=== PATIENT | male | born 1955 | race Caucasian/White ===

== ENCOUNTER 2021-04-16 01:19 | Inpatient (IN) | payer BC, MEDICARE ==
[2021-04-16 02:32] LABS: ALT (SGPT) 10 U/L (8-55); AST (SGOT) 21 U/L (5-34); Albumin 3.4 g/dL (3.4-4.8); Alkaline Phosphatase 77 U/L (40-110); Anion Gap 18 mmol/L (10-20); BUN (Urea Nitrogen) 24 mg/dL (8.4-25.7); Bilirubin, Total 0.3 mg/dL (0.2-1.2); Calc. Creatinine Clearance 0 mL/min (70-130); Calcium 8.7 mg/dL (7.8-10.44); Carbon Dioxide 26 mmol/L (23-31); Chloride 101 mmol/L (98-107); Globulin 3.4 g/dL (2.4-3.5); Glucose 85 mg/dL (80-115); Magnesium 2.1 mg/dL (1.6-2.6); Potassium 3.9 mmol/L (3.5-5.1); Protein, Total 6.8 g/dL (5.8-8.1); Sodium 141 mmol/L (136-145)
[2021-04-16 02:38] LABS: #Basophils 0.1 10x3/uL (0.0-0.2); #Eosinphils 0.2 10x3/uL (0.0-0.5); #Monocytes 0.8 10x3/uL (0.0-1.1); #Neutrophils 7.9 10x3/uL (1.5-8.4); %Basophils 1.2 % (0.0-2.0); %Eosinophils 1.6 % (0.0-6.0); %Lymphocytes 8.7 % (18.0-47.0); %Monocytes 8.5 % (0.0-10.0); %Neutrophils 79.4 % (40.0-75.0); Hemoglobin 10.9 g/dL (13.5-17.5); Mean Corpuscular HGB CONC 31.7 g/dL (32.0-36.0); Mean Corpuscular Hemoglobin 31.1 pg (27.0-33.0); Mean Platelet Volume 10.5 fl (7.4-10.4); Platelet Count 206 10x3/uL (150-450); RBC Distribution Width 15.7 % (11.5-14.5); Red Blood Cell (RBC) Count 3.51 10x6/uL (4.32-5.72); White Blood Cell (WBC) Count 9.9 10x3/uL (3.5-10.5)
[2021-04-16 02:52] LABS: CKMB 2.7 ng/mL (0-6.6)
[2021-04-16] MEDS ORDERED: cefTRIAXone\\ROCEPHIN 2 GM VIAL ONE (03:24)
[2021-04-16] MEDS ORDERED: Nitroglycerin 2% Ointment 1 INCH/1 GM Packet ONE (03:24)
[2021-04-16] MEDS ORDERED: Acetaminophen 500 MG TAB ONE (03:24)
[2021-04-16] MEDS ORDERED: Azithromycin 500 MG VIAL ONE (03:25)
[2021-04-16] MEDS ORDERED: Ventolin HFA Inhaler 60 PUFF INHALER ONE (05:57)
[2021-04-16 06:45] LABS: CKMB 2.9 ng/mL (0-6.6)
[2021-04-16 09:29] LABS: Troponin I 0.358 ng/mL (< 0.028)
[2021-04-16] MEDS ORDERED: Acetaminophen 325 MG TAB PO PRN (10:16)
[2021-04-16] MEDS ORDERED: Ondansetron ODT 4 MG TAB PO PRN (10:16)
[2021-04-16] MEDS ORDERED: Ondansetron PF 4 MG/2 ML Vial IVP PRN (10:16)
[2021-04-16] MEDS ORDERED: HYDROcodone/Acetaminophen 5/325 mg Tablet PO PRN (10:16)
[2021-04-16 12:39] LABS: Troponin I 0.456 ng/mL (< 0.028)
[2021-04-16] MEDS: Heparin 5,000 UNITS/ML VIAL SC SCH ×2 (16:28→20:42)
[2021-04-16] MEDS: Sodium Bicarbonate Tab 325 MG TAB PO SCH ×2 (16:28→20:40)
[2021-04-16] MEDS: Sevelamer Carbonate 800 MG TAB PO SCH ×2 (16:28→17:09)
[2021-04-16 17:03] VITALS: BMI 19.8
[2021-04-16] MEDS: Atorvastatin Calcium 10 MG TAB PO SCH (20:40)
[2021-04-16] MEDS: Losartan Potassium 50 MG TAB PO SCH (20:40)
[2021-04-16] MEDS: hydrALAZINE 20 MG/ML VIAL SLOW IVP PRN (22:34)
[2021-04-16] MEDS ORDERED: [UNRECOGNIZED DRUG - REMARK] FS SCH (23:15)
[2021-04-16] MEDS ORDERED: Nitroglycerin 2% Ointment 1 INCH/1 GM Packet TOP SCH (23:15)
[2021-04-16] MEDS ORDERED: Nitroglycerin 0.4 MG TAB (25 Tab Bottle) SL PRN (23:24)
[2021-04-17] MEDS ORDERED: Amitriptyline HCl 10 MG TAB PO SCH (01:15)
[2021-04-17] MEDS ORDERED: ALPRAZolam 0.25 MG TAB PO SCH (01:30)
[2021-04-17 04:40] LABS: #Basophils 0.1 10x3/uL (0.0-0.2); #Eosinphils 0.3 10x3/uL (0.0-0.5); #Monocytes 0.8 10x3/uL (0.0-1.1); #Neutrophils 5.7 10x3/uL (1.5-8.4); %Basophils 1.6 % (0.0-2.0); %Eosinophils 3.2 % (0.0-6.0); %Lymphocytes 14.1 % (18.0-47.0); %Monocytes 9.6 % (0.0-10.0); %Neutrophils 70.6 % (40.0-75.0); Hemoglobin 10.5 g/dL (13.5-17.5); Mean Corpuscular Hemoglobin 30.7 pg (27.0-33.0); Mean Corpuscular Volume 95.9 fl (81.2-95.1); Mean Platelet Volume 10.7 fl (7.4-10.4); Platelet Count 205 10x3/uL (150-450); RBC Distribution Width 15.9 % (11.5-14.5); Red Blood Cell (RBC) Count 3.42 10x6/uL (4.32-5.72); White Blood Cell (WBC) Count 8.1 10x3/uL (3.5-10.5)
[2021-04-17] MEDS: hydrALAZINE 20 MG/ML VIAL SLOW IVP PRN ×2 (04:45→23:49)
[2021-04-17 05:01] LABS: ALT (SGPT) 10 U/L (8-55); AST (SGOT) 18 U/L (5-34); Albumin 3.1 g/dL (3.4-4.8); Alkaline Phosphatase 71 U/L (40-110); Anion Gap 18 mmol/L (10-20); BUN (Urea Nitrogen) 32 mg/dL (8.4-25.7); Bilirubin, Total 0.3 mg/dL (0.2-1.2); Calc. Creatinine Clearance 8 mL/min (70-130); Calcium 8.5 mg/dL (7.8-10.44); Carbon Dioxide 21 mmol/L (23-31); Chloride 106 mmol/L (98-107); Globulin 3.3 g/dL (2.4-3.5); Glucose 105 mg/dL (80-115); Lipase 9 U/L (8-78); Potassium 3.4 mmol/L (3.5-5.1); Protein, Total 6.4 g/dL (5.8-8.1); Sodium 142 mmol/L (136-145)
[2021-04-17] MEDS: Levothyroxine Sodium 125 MCG TAB PO SCH (05:29)
[2021-04-17] MEDS: Amlodipine 10 MG TAB PO SCH (06:26)
[2021-04-17] MEDS ORDERED: EPOETIN ALFA-EPBX (ESRD) 4,000 UNIT/ML VIAL SC SCH (07:30)
[2021-04-17 08:59] LABS: Troponin I 0.297 ng/mL (< 0.028)
[2021-04-17] MEDS: Multivitamin W/ Minerals 1 TAB PO SCH (10:02)
[2021-04-17] MEDS: Sevelamer Carbonate 800 MG TAB PO SCH ×3 (10:02→20:29)
[2021-04-17] MEDS: Sodium Bicarbonate Tab 325 MG TAB PO SCH ×3 (10:02→22:20)
[2021-04-17] MEDS: Clopidogrel Bisulfate 75 MG TAB PO SCH (10:03)
[2021-04-17] MEDS: Heparin 5,000 UNITS/ML VIAL SC SCH ×3 (10:03→22:19)
[2021-04-17] MEDS: Fluticasone Propionate Nasal Spray 16 gm Bottle NASAL SCH (10:04)
[2021-04-17] MEDS: Aspirin 81 mg Enteric Coated Tablet PO SCH (10:22)
[2021-04-17] MEDS ORDERED: Heparin 10,000 UNITS/ 10 ML VIAL FS PRN (12:56)
[2021-04-17] MEDS: Losartan Potassium 50 MG TAB PO SCH (22:20)
[2021-04-17] MEDS: Atorvastatin Calcium 10 MG TAB PO SCH (22:21)
[2021-04-18] MEDS ORDERED: ALPRAZolam 0.25 MG TAB PO PRN (01:13)
[2021-04-18] MEDS ORDERED: Morphine 2 MG/ML VIAL SLOW IVP SCH (03:00)
[2021-04-18] MEDS: Levothyroxine Sodium 125 MCG TAB PO SCH (05:06)
[2021-04-18 07:24] LABS: #Basophils 0.1 10x3/uL (0.0-0.2); #Eosinphils 0.3 10x3/uL (0.0-0.5); #Monocytes 0.7 10x3/uL (0.0-1.1); #Neutrophils 3.1 10x3/uL (1.5-8.4); %Basophils 2.5 % (0.0-2.0); %Eosinophils 6.4 % (0.0-6.0); %Lymphocytes 20.2 % (18.0-47.0); %Monocytes 12.5 % (0.0-10.0); %Neutrophils 57.8 % (40.0-75.0); Mean Corpuscular HGB CONC 31.5 g/dL (32.0-36.0); Mean Corpuscular Hemoglobin 30.7 pg (27.0-33.0); Mean Corpuscular Volume 97.5 fl (81.2-95.1); Mean Platelet Volume 10.3 fl (7.4-10.4); Platelet Count 209 10x3/uL (150-450); RBC Distribution Width 16.1 % (11.5-14.5); Red Blood Cell (RBC) Count 3.58 10x6/uL (4.32-5.72); White Blood Cell (WBC) Count 5.3 10x3/uL (3.5-10.5)
[2021-04-18 07:39] LABS: Anion Gap 16 mmol/L (10-20); BUN (Urea Nitrogen) 15 mg/dL (8.4-25.7); Calc. Creatinine Clearance 12 mL/min (70-130); Calcium 8.7 mg/dL (7.8-10.44); Carbon Dioxide 23 mmol/L (23-31); Chloride 105 mmol/L (98-107); Glucose 94 mg/dL (80-115); Potassium 3.8 mmol/L (3.5-5.1); Sodium 140 mmol/L (136-145)
[2021-04-18] MEDS ORDERED: Lidocaine 1% MPF 2 ML VIAL ONE (08:47)
[2021-04-18] MEDS ORDERED: Lidocaine 1% PF 5 ML VIAL ONE (08:56)
[2021-04-18] MEDS ORDERED: PROPOFOL 20 ML ONE (08:56)
[2021-04-18 09:13] VITALS: BP 171/73; TEMP 98
[2021-04-18] MEDS ORDERED: Promethazine HCl 25 MG/ML VIAL IM PRN (09:34)
[2021-04-18] MEDS ORDERED: Promethazine HCl 25 MG/ML VIAL IVPB PRN (09:34)
[2021-04-18] MEDS ORDERED: Ondansetron HCl/PF 4 MG/2 ML Vial IVP PRN (09:34)
[2021-04-18] MEDS: Sevelamer Carbonate 800 MG TAB PO SCH (10:31)
[2021-04-18] MEDS: Clopidogrel Bisulfate 75 MG TAB PO SCH ×2 (10:34→11:29)
[2021-04-18] MEDS: Aspirin 81 mg Enteric Coated Tablet PO SCH ×2 (10:34→11:30)
[2021-04-18] MEDS: Heparin 5,000 UNITS/ML VIAL SC SCH (10:34)
[2021-04-18] MEDS: Amlodipine 10 MG TAB PO SCH (11:24)
[2021-04-18] MEDS: Multivitamin W/ Minerals 1 TAB PO SCH (11:24)
[2021-04-18] MEDS: Sodium Bicarbonate Tab 325 MG TAB PO SCH (11:24)
[2021-04-18] MEDS: Fluticasone Propionate Nasal Spray 16 gm Bottle NASAL SCH (11:25)
== END 2021-04-18 13:00 | disposition home or self-care (01) | DRG 377 ==
LOC: CSHERS 01:19 → CSHERHOLD 08:20 → CSHTELE 15:33
PROVIDERS: ADMIT Internal Medicine; ATTEND Internal Medicine
PROC: 0DJ08ZZ Inspection of Upper Intestinal Tract, Via Natural or Artificial Opening Endoscopic (ICD-10-PCS; principal; 2021-04-18)
PROC: 5A1D70Z Performance of Urinary Filtration, Intermittent, Less than 6 Hours Per Day (ICD-10-PCS; 2021-04-18)
DX: K25.0 Acute gastric ulcer with hemorrhage (principal); N18.6 End stage renal disease; J96.01 Acute respiratory failure with hypoxia; I12.0 Hypertensive chronic kidney disease with stage 5 chronic kidney disease or end stage renal disease; J90 Pleural effusion, not elsewhere classified; K20.90 Esophagitis, unspecified without bleeding; K57.10 Diverticulosis of small intestine without perforation or abscess without bleeding; K26.3 Acute duodenal ulcer without hemorrhage or perforation; Z99.2 Dependence on renal dialysis; E03.9 Hypothyroidism, unspecified; D64.9 Anemia, unspecified; F17.210 Nicotine dependence, cigarettes, uncomplicated; Z88.7 Allergy status to serum and vaccine; Z85.12 Personal history of malignant neoplasm of trachea; E78.5 Hyperlipidemia, unspecified; D63.1 Anemia in chronic kidney disease; I34.0 Nonrheumatic mitral (valve) insufficiency
CPT/HCPCS: 36415; 71045; 74177; 80048; 80053; 82553; 83605; 83690; 83735; 84484; 85025; 87040; 90935; 93005; 94640; 94760; 96365; 96367; 96374; 96375; G0257; J0360; J0456; J0696; J1644; J2270; J2405; J2704; J7620; Q5105

== ENCOUNTER 2021-04-28 15:37 | Inpatient (IN) | payer BC, MEDICARE ==
[2021-04-28 16:56] LABS: #Monocytes 0.3 10x3/uL (0.0-1.1); #Neutrophils 3.1 10x3/uL (1.5-8.4); %Basophils 0.9 % (0.0-2.0); %Eosinophils 0.2 % (0.0-6.0); %Lymphocytes 23.9 % (18.0-47.0); %Monocytes 7.3 % (0.0-10.0); Hemoglobin 11.6 g/dL (13.5-17.5); Mean Corpuscular HGB CONC 31.7 g/dL (32.0-36.0); Mean Corpuscular Hemoglobin 30.9 pg (27.0-33.0); Mean Corpuscular Volume 97.3 fl (81.2-95.1); Mean Platelet Volume 10.8 fl (7.4-10.4); Platelet Count 180 10x3/uL (150-450); RBC Distribution Width 16.5 % (11.5-14.5); Red Blood Cell (RBC) Count 3.76 10x6/uL (4.32-5.72); White Blood Cell (WBC) Count 4.7 10x3/uL (3.5-10.5)
[2021-04-28 17:07] LABS: ALT (SGPT) 12 U/L (8-55); AST (SGOT) 44 U/L (5-34); Albumin 3.4 g/dL (3.4-4.8); Alkaline Phosphatase 70 U/L (40-110); Anion Gap 20 mmol/L (10-20); BUN (Urea Nitrogen) 38 mg/dL (8.4-25.7); Bilirubin, Total 0.4 mg/dL (0.2-1.2); Calc. Creatinine Clearance 0 mL/min (70-130); Calcium 8.7 mg/dL (7.8-10.44); Carbon Dioxide 21 mmol/L (23-31); Chloride 98 mmol/L (98-107); Glucose 84 mg/dL (80-115); Potassium 3.7 mmol/L (3.5-5.1); Protein, Total 7.4 g/dL (5.8-8.1); Sodium 135 mmol/L (136-145)
[2021-04-28] MEDS ORDERED: Acetaminophen 500 MG TAB ONE (17:10)
[2021-04-28] MEDS ORDERED: Cefepime 2 GM VIAL ONE (17:10)
[2021-04-28 18:10] LABS: Bilirubin Neg (Negative); Blood, Urine 10 (Negative); Clarity Clear (Clear); Glucose, Urine (Dipstick) 100 mg/dL (Negative); Ketone, Urine Negative (Negative); Leukocyte Negative (Negative); Nitrite Negative (Negative); Protein, Urine (Dipstick) 500 mg/dl (Neg-Trace); Urobilinogen Normal mg/dL (Less than 2)
[2021-04-28 18:32] LABS: SARS-CoV-2 NAA Rapid Test DETECTED (NotDetected)
[2021-04-28 18:32] LABS: Bacteria/HPF Rare-Few HPF (None Seen); RBC/HPF 0-3 HPF (0-3); Squamous Epithelial 0-3 HPF (0-3); WBC/HPF 0-3 HPF (0-3)
[2021-04-28 18:34] LABS: Mucous/LPF 1+ LPF (<2+)
[2021-04-28] MEDS ORDERED: Dexamethasone 10 MG/ML VIAL ONE (19:43)
[2021-04-28] MEDS ORDERED: Ondansetron PF 4 MG/2 ML Vial IVP PRN (20:05)
[2021-04-28] MEDS ORDERED: Calcium Carbonate 500 MG ChewTAB PO PRN (20:05)
[2021-04-28] MEDS ORDERED: Acetaminophen 325 MG TAB PO PRN (20:05)
[2021-04-28] MEDS ORDERED: HYDROcodone/Acetaminophen 5/325 mg Tablet PO PRN (20:05)
[2021-04-28] MEDS ORDERED: Guaifenesin DM 100-10/5 ML UDCUP PO PRN (20:05)
[2021-04-28] MEDS ORDERED: Ventolin HFA Inhaler 60 PUFF INHALER INH PRN (20:10)
[2021-04-29] MEDS ORDERED: Vancomycin HCl 250 MG in Sodium Chloride 0.9% 100 ML IVPB SCH (01:00)
[2021-04-29] MEDS ORDERED: Vancomycin HCl 500 MG in Sodium Chloride 0.9% 100 ML IVPB SCH (01:00)
[2021-04-29] MEDS ORDERED: Vancomycin HCl 1 GM in Sodium Chloride 0.9% 250 ML 250 ML IVPB SCH (01:00)
[2021-04-29] MEDS ORDERED: Vancomycin HCl 750 MG in Sodium Chloride 0.9% 250 ML 250 ML IVPB SCH (01:00)
[2021-04-29] MEDS ORDERED: HOLD VANCOMYCIN FOR LEVEL >20 FS SCH (01:00)
[2021-04-29] MEDS ORDERED: Nitroglycerin 2% Ointment 1 INCH/1 GM Packet TOP SCH (03:00)
[2021-04-29] MEDS: Atorvastatin Calcium 10 MG TAB PO SCH ×2 (03:03→20:29)
[2021-04-29 03:32] VITALS: BMI 19.5
[2021-04-29 04:50] LABS: #Monocytes 0.2 10x3/uL (0.0-1.1); #Neutrophils 2.3 10x3/uL (1.5-8.4); %Basophils 0.6 % (0.0-2.0); %Lymphocytes 15.6 % (18.0-47.0); %Neutrophils 73.9 % (40.0-75.0); Hemoglobin 11.4 g/dL (13.5-17.5); Mean Corpuscular HGB CONC 32.3 g/dL (32.0-36.0); Mean Corpuscular Hemoglobin 31.1 pg (27.0-33.0); Mean Corpuscular Volume 96.2 fl (81.2-95.1); Mean Platelet Volume 10.6 fl (7.4-10.4); Platelet Count 153 10x3/uL (150-450); RBC Distribution Width 16.2 % (11.5-14.5); Red Blood Cell (RBC) Count 3.67 10x6/uL (4.32-5.72); White Blood Cell (WBC) Count 3.2 10x3/uL (3.5-10.5)
[2021-04-29 05:06] LABS: Anion Gap 17 mmol/L (10-20); BUN (Urea Nitrogen) 42 mg/dL (8.4-25.7); Calc. Creatinine Clearance 8 mL/min (70-130); Calcium 8.3 mg/dL (7.8-10.44); Carbon Dioxide 19 mmol/L (23-31); Chloride 105 mmol/L (98-107); Glucose 130 mg/dL (80-115); Sodium 137 mmol/L (136-145)
[2021-04-29] MEDS: Levothyroxine Sodium 125 MCG TAB PO SCH (05:29)
[2021-04-29] MEDS: Aspirin 81 mg Enteric Coated Tablet PO SCH (08:57)
[2021-04-29] MEDS: Zinc Gluconate 50 MG TAB PO SCH (08:57)
[2021-04-29] MEDS: Ascorbic Acid 500 mg Chewable Tablet PO SCH (08:58)
[2021-04-29] MEDS: Heparin 5,000 UNITS/ML VIAL SC SCH ×3 (08:58→20:28)
[2021-04-29] MEDS: Cholecalciferol 1,000 UNITS (25 MCG) TAB PO SCH (08:58)
[2021-04-29] MEDS: Nicotine 21 MG PATCH TD SCH (08:58)
[2021-04-29] MEDS: cloNIDine 0.1 MG TAB PO SCH ×2 (08:58→20:28)
[2021-04-29] MEDS: Sevelamer Carbonate 800 MG TAB PO SCH ×3 (08:58→19:26)
[2021-04-29] MEDS: Dexamethasone 20 MG/5 ML VIAL SLOW IVP SCH (08:58)
[2021-04-29] MEDS: Amlodipine 10 MG TAB PO SCH (08:58)
[2021-04-29] MEDS: Multivitamin W/ Minerals 1 TAB PO SCH (08:58)
[2021-04-29] MEDS: Clopidogrel Bisulfate 75 MG TAB PO SCH (08:58)
[2021-04-29] MEDS: Amitriptyline HCl 10 MG TAB PO SCH (08:58)
[2021-04-29] MEDS ORDERED: Vancomycin 1 GM in Premix Bag 1 BAG IVPB SCH (09:00)
[2021-04-29 10:22] LABS: Legionella Urinary Ag Negative (Negative); Strep pneumo Urine Ag NEGATIVE (NEGATIVE)
[2021-04-29] MEDS: Budesonide 0.5 MG/2 ML NEB NEB SCH ×2 (11:11→18:30)
[2021-04-29] MEDS ORDERED: Heparin 10,000 UNITS/ 10 ML VIAL FS SCH (14:30)
[2021-04-29] MEDS ORDERED: Cefepime 0.5 GM, Admixture Fee 1 EACH in Sodium Chloride 0.9% 100 ML IVPB SCH ×2 (15:00→20:00)
[2021-04-29] MEDS ORDERED: Losartan Potassium 50 MG TAB PO SCH (21:00)
[2021-04-30] MEDS: Levothyroxine Sodium 125 MCG TAB PO SCH (05:37)
[2021-04-30 05:41] LABS: #Monocytes 0.5 10x3/uL (0.0-1.1); #Neutrophils 4.5 10x3/uL (1.5-8.4); %Basophils 0.3 % (0.0-2.0); %Lymphocytes 11.3 % (18.0-47.0); %Monocytes 9.3 % (0.0-10.0); %Neutrophils 77.4 % (40.0-75.0); Hemoglobin 10.9 g/dL (13.5-17.5); Mean Corpuscular HGB CONC 32.5 g/dL (32.0-36.0); Mean Corpuscular Hemoglobin 30.6 pg (27.0-33.0); Mean Corpuscular Volume 94.1 fl (81.2-95.1); Mean Platelet Volume 10.5 fl (7.4-10.4); Platelet Count 175 10x3/uL (150-450); RBC Distribution Width 16.1 % (11.5-14.5); Red Blood Cell (RBC) Count 3.56 10x6/uL (4.32-5.72); White Blood Cell (WBC) Count 5.8 10x3/uL (3.5-10.5)
[2021-04-30 06:00] LABS: Anion Gap 16 mmol/L (10-20); BUN (Urea Nitrogen) 31 mg/dL (8.4-25.7); Calc. Creatinine Clearance 11 mL/min (70-130); Calcium 8.3 mg/dL (7.8-10.44); Carbon Dioxide 28 mmol/L (23-31); Chloride 101 mmol/L (98-107); Glucose 113 mg/dL (80-115); Potassium 4.1 mmol/L (3.5-5.1); Sodium 141 mmol/L (136-145)
[2021-04-30] MEDS: Budesonide 0.5 MG/2 ML NEB NEB SCH (07:00)
[2021-04-30] MEDS: Ascorbic Acid 500 mg Chewable Tablet PO SCH (09:08)
[2021-04-30] MEDS: Amlodipine 10 MG TAB PO SCH (09:08)
[2021-04-30] MEDS: Sevelamer Carbonate 800 MG TAB PO SCH ×3 (09:09→16:21)
[2021-04-30] MEDS: cloNIDine 0.1 MG TAB PO SCH (09:09)
[2021-04-30] MEDS: Clopidogrel Bisulfate 75 MG TAB PO SCH (09:10)
[2021-04-30] MEDS: Heparin 5,000 UNITS/ML VIAL SC SCH ×2 (09:10→16:02)
[2021-04-30] MEDS: Multivitamin W/ Minerals 1 TAB PO SCH (09:10)
[2021-04-30] MEDS: Aspirin 81 mg Enteric Coated Tablet PO SCH (09:10)
[2021-04-30] MEDS: Cholecalciferol 1,000 UNITS (25 MCG) TAB PO SCH (09:11)
[2021-04-30] MEDS: Nicotine 21 MG PATCH TD SCH (09:12)
[2021-04-30] MEDS: Zinc Gluconate 50 MG TAB PO SCH (09:12)
[2021-04-30] MEDS: Amitriptyline HCl 10 MG TAB PO SCH (09:15)
[2021-04-30] MEDS: Dexamethasone 20 MG/5 ML VIAL SLOW IVP SCH (09:15)
[2021-04-30 12:04] VITALS: BP 140/69; TEMP 97.5
== END 2021-04-30 16:28 | disposition home or self-care (01) | DRG 177 ==
LOC: CSHERS 15:37 → CSHTELE 20:05 → INTOOBSV 04-29 01:23 → CSHTELE 04-29 01:23 → UNDOADMOB 04-29 01:23 → OBSVTOIN 04-29 01:23 → UNDODISOB 04-30 16:28
PROVIDERS: ADMIT Student in an Organized Health Care Education/Training Program; ATTEND Internal Medicine
PROC: 8E0ZXY6 Isolation (ICD-10-PCS; principal; 2021-04-29)
DX: U07.1 COVID-19 (principal); J12.82 Pneumonia due to coronavirus disease 2019; J96.01 Acute respiratory failure with hypoxia; N18.6 End stage renal disease; I12.0 Hypertensive chronic kidney disease with stage 5 chronic kidney disease or end stage renal disease; E78.5 Hyperlipidemia, unspecified; D63.1 Anemia in chronic kidney disease; F17.210 Nicotine dependence, cigarettes, uncomplicated; E03.9 Hypothyroidism, unspecified; Z88.7 Allergy status to serum and vaccine; Z85.12 Personal history of malignant neoplasm of trachea; J44.9 Chronic obstructive pulmonary disease, unspecified; Z86.73 Personal history of transient ischemic attack (TIA), and cerebral infarction without residual deficits; Z99.2 Dependence on renal dialysis; I51.89 Other ill-defined heart diseases; I34.0 Nonrheumatic mitral (valve) insufficiency
CPT/HCPCS: 0240U; 36415; 71045; 71250; 80048; 80053; 81003; 81015; 83605; 85025; 85379; 86140; 87040; 87449; 87899; 90935; 93005; 94760; 96365; 96366; 96367; 96375; G0257; J0692; J1100; J1644; J3370; J3490

== ENCOUNTER 2021-09-08 12:46 | Inpatient (IN) | payer BC, MEDICARE ==
[2021-09-08 13:41] LABS: #Basophils 0.1 10x3/uL (0.0-0.2); #Eosinphils 0.2 10x3/uL (0.0-0.5); #Monocytes 0.5 10x3/uL (0.0-1.1); #Neutrophils 4.5 10x3/uL (1.5-8.4); %Basophils 1.3 % (0.0-2.0); %Eosinophils 3.3 % (0.0-6.0); %Lymphocytes 12.3 % (18.0-47.0); %Monocytes 7.8 % (0.0-10.0); %Neutrophils 74.8 % (40.0-75.0); Hemoglobin 10.6 g/dL (13.5-17.5); Mean Corpuscular HGB CONC 32.9 g/dL (32.0-36.0); Mean Corpuscular Hemoglobin 31.6 pg (27.0-33.0); Mean Corpuscular Volume 96.1 fl (81.2-95.1); Mean Platelet Volume 9.6 fl (7.4-10.4); Platelet Count 205 10x3/uL (150-450); RBC Distribution Width 14.5 % (11.5-14.5); Red Blood Cell (RBC) Count 3.35 10x6/uL (4.32-5.72)
[2021-09-08] MEDS ORDERED: Morphine 4 MG/ML VIAL ONE (13:42)
[2021-09-08 13:58] LABS: ALT (SGPT) 11 U/L (8-55); AST (SGOT) 22 U/L (5-34); Albumin 3.5 g/dL (3.4-4.8); Alkaline Phosphatase 65 U/L (40-110); Anion Gap 16 mmol/L (10-20); BUN (Urea Nitrogen) 14 mg/dL (8.4-25.7); Bilirubin, Total 0.3 mg/dL (0.2-1.2); Calc. Creatinine Clearance 0 mL/min (70-130); Calcium 8.1 mg/dL (7.8-10.44); Carbon Dioxide 25 mmol/L (23-31); Chloride 100 mmol/L (98-107); Globulin 2.9 g/dL (2.4-3.5); Glucose 180 mg/dL (80-115); Potassium 3.5 mmol/L (3.5-5.1); Protein, Total 6.4 g/dL (5.8-8.1); Sodium 137 mmol/L (136-145)
[2021-09-08 14:16] LABS: CKMB 1.6 ng/mL (0-6.6)
[2021-09-08] MEDS ORDERED: Aspirin Chewable 81 MG TAB ONE (15:09)
[2021-09-08] MEDS ORDERED: hydrALAZINE 20 MG/ML VIAL SLOW IVP PRN (16:22)
[2021-09-08] MEDS ORDERED: Acetaminophen 325 MG TAB PO PRN (16:26)
[2021-09-08] MEDS ORDERED: Calcium Carbonate 500 MG ChewTAB PO PRN (16:26)
[2021-09-08] MEDS ORDERED: Ondansetron ODT 4 MG TAB PO PRN (16:26)
[2021-09-08] MEDS ORDERED: Senokot S 8.6-50 MG TAB PO PRN (16:26)
[2021-09-08] MEDS ORDERED: Clopidogrel Bisulfate 75 MG TAB PO SCH (20:30)
[2021-09-08] MEDS ORDERED: Atorvastatin Calcium 40 MG TAB PO SCH (20:30)
[2021-09-08] MEDS ORDERED: Clopidogrel Bisulfate 75 MG TAB ONE (21:36)
[2021-09-08 21:46] VITALS: BMI 19.5
[2021-09-08] MEDS ORDERED: traMADol HCl 50 MG TAB PO SCH (22:45)
[2021-09-09 05:47] LABS: Anion Gap 16 mmol/L (10-20); BUN (Urea Nitrogen) 17 mg/dL (8.4-25.7); Calc. Creatinine Clearance 11 mL/min (70-130); Calcium 8.2 mg/dL (7.8-10.44); Carbon Dioxide 24 mmol/L (23-31); Cardiac Risk 2.2 (Less than 4.5); Chloride 103 mmol/L (98-107); Cholesterol 154 mg/dl (< 200 Desired); Glucose 81 mg/dL (80-115); HDL Cholesterol 71 mg/dL (>60 Neg Risk); LDL Cholesterol, Calculated 62 mg/dL; Magnesium 1.9 mg/dL (1.6-2.6); Potassium 3.6 mmol/L (3.5-5.1); Sodium 139 mmol/L (136-145); Triglycerides 105 mg/dL (Less than 150)
[2021-09-09 06:12] LABS: Thyroid Stimulating Hormone 8.9011 uIU/mL (0.35-4.94)
[2021-09-09 06:49] LABS: #Basophils 0.1 10x3/uL (0.0-0.2); #Eosinphils 0.4 10x3/uL (0.0-0.5); #Monocytes 0.7 10x3/uL (0.0-1.1); #Neutrophils 5.7 10x3/uL (1.5-8.4); %Basophils 1.1 % (0.0-2.0); %Eosinophils 4.6 % (0.0-6.0); %Lymphocytes 12.8 % (18.0-47.0); %Monocytes 8.4 % (0.0-10.0); %Neutrophils 72.7 % (40.0-75.0); Hemoglobin 10.9 g/dL (13.5-17.5); Mean Corpuscular Hemoglobin 31.9 pg (27.0-33.0); Mean Corpuscular Volume 96.5 fl (81.2-95.1); Platelet Count 212 10x3/uL (150-450); RBC Distribution Width 14.6 % (11.5-14.5); Red Blood Cell (RBC) Count 3.42 10x6/uL (4.32-5.72); White Blood Cell (WBC) Count 7.8 10x3/uL (3.5-10.5)
[2021-09-09] MEDS ORDERED: traMADol HCl 50 MG TAB PO PRN (07:51)
[2021-09-09] MEDS ORDERED: EPOETIN ALFA-EPBX (ESRD) 4,000 UNIT/ML VIAL SC SCH (08:00)
[2021-09-09] MEDS ORDERED: Levothyroxine 150 MCG TAB PO SCH (08:15)
[2021-09-09] MEDS ORDERED: Losartan 25 MG TAB PO SCH (09:00)
[2021-09-09] MEDS: Aspirin 81 mg Enteric Coated Tablet PO SCH (10:25)
[2021-09-09] MEDS: Clopidogrel Bisulfate 75 MG TAB PO SCH (10:26)
[2021-09-09] MEDS: Amitriptyline HCl 10 MG TAB PO SCH (10:27)
[2021-09-09 15:30] LABS: Hep B Surf Ag Non-Reactive S/CO (NonReactive)
[2021-09-09 15:34] LABS: HBSAg Index 0.16 S/CO (0-0.99)
[2021-09-09 16:07] LABS: SARS-CoV-2 PCR by NAA Not Detected (NotDetected)
[2021-09-09] MEDS: Senokot S 8.6-50 MG TAB PO SCH (21:39)
[2021-09-09] MEDS: Simvastatin 10 MG TAB PO SCH (21:39)
[2021-09-09] MEDS: Sodium Bicarbonate Tab 325 MG TAB PO SCH (21:39)
[2021-09-10 04:21] LABS: #Basophils 0.1 10x3/uL (0.0-0.2); #Eosinphils 0.4 10x3/uL (0.0-0.5); #Monocytes 0.8 10x3/uL (0.0-1.1); #Neutrophils 5.5 10x3/uL (1.5-8.4); %Basophils 1.1 % (0.0-2.0); %Eosinophils 5.2 % (0.0-6.0); %Lymphocytes 17.1 % (18.0-47.0); %Neutrophils 66.1 % (40.0-75.0); Hemoglobin 11.5 g/dL (13.5-17.5); Mean Corpuscular HGB CONC 32.7 g/dL (32.0-36.0); Mean Corpuscular Hemoglobin 32.1 pg (27.0-33.0); Mean Corpuscular Volume 98.3 fl (81.2-95.1); Mean Platelet Volume 9.8 fl (7.4-10.4); Platelet Count 205 10x3/uL (150-450); RBC Distribution Width 14.5 % (11.5-14.5); Red Blood Cell (RBC) Count 3.58 10x6/uL (4.32-5.72); White Blood Cell (WBC) Count 8.3 10x3/uL (3.5-10.5)
[2021-09-10 04:43] LABS: Anion Gap 18 mmol/L (10-20); BUN (Urea Nitrogen) 26 mg/dL (8.4-25.7); Calc. Creatinine Clearance 8 mL/min (70-130); Calcium 8.4 mg/dL (7.8-10.44); Carbon Dioxide 21 mmol/L (23-31); Chloride 105 mmol/L (98-107); Glucose 79 mg/dL (80-115); Potassium 4.7 mmol/L (3.5-5.1); Sodium 139 mmol/L (136-145)
[2021-09-10] MEDS: Levothyroxine 150 MCG TAB PO SCH (07:20)
[2021-09-10] MEDS: Aspirin 81 mg Enteric Coated Tablet PO SCH (08:39)
[2021-09-10] MEDS: Clopidogrel Bisulfate 75 MG TAB PO SCH (08:39)
[2021-09-10] MEDS: Amitriptyline HCl 10 MG TAB PO SCH (08:39)
[2021-09-10 13:18] LABS: Syphilis Antibody Nonreactive (Nonreactive); Syphilis Antibody Index 0.05 S/CO (<1.00 Non-Reactive)
[2021-09-10] MEDS: Heparin 5,000 UNITS/ML VIAL SC SCH (20:57)
[2021-09-10] MEDS: Senokot S 8.6-50 MG TAB PO SCH (20:58)
[2021-09-10] MEDS: Sodium Bicarbonate Tab 325 MG TAB PO SCH (20:59)
[2021-09-10] MEDS: Simvastatin 10 MG TAB PO SCH (20:59)
[2021-09-11] MEDS: Heparin 5,000 UNITS/ML VIAL SC SCH ×2 (09:01→22:21)
[2021-09-11] MEDS: Aspirin 81 mg Enteric Coated Tablet PO SCH (09:01)
[2021-09-11] MEDS: Amitriptyline HCl 10 MG TAB PO SCH (09:01)
[2021-09-11] MEDS: Clopidogrel Bisulfate 75 MG TAB PO SCH (09:01)
[2021-09-11] MEDS: Levothyroxine 150 MCG TAB PO SCH (09:01)
[2021-09-11] MEDS ORDERED: Heparin 10,000 UNITS/ 10 ML VIAL FS PRN (15:35)
[2021-09-11] MEDS ORDERED: Rosuvastatin 10 MG TAB PO SCH (21:00)
[2021-09-11] MEDS: Senokot S 8.6-50 MG TAB PO SCH (22:19)
[2021-09-11] MEDS: Sodium Bicarbonate Tab 325 MG TAB PO SCH (22:19)
[2021-09-12] MEDS: Levothyroxine 150 MCG TAB PO SCH (06:18)
[2021-09-12] MEDS ORDERED: Amlodipine 10 MG TAB PO SCH (09:00)
[2021-09-12] MEDS: Amitriptyline HCl 10 MG TAB PO SCH (11:24)
[2021-09-12] MEDS: Aspirin 81 mg Enteric Coated Tablet PO SCH (11:24)
[2021-09-12] MEDS: Heparin 5,000 UNITS/ML VIAL SC SCH (11:24)
[2021-09-12] MEDS: Clopidogrel Bisulfate 75 MG TAB PO SCH (11:25)
[2021-09-12 12:52] VITALS: BP 176/78; TEMP 98
== END 2021-09-12 16:32 | disposition home or self-care (01) | DRG 91 ==
LOC: CSHERS 12:46 → UNDOADMIN 17:47 → CSHERHOLD 17:47 → CSHTELE 23:25 → CSHERHOLD 23:25 → CSHTELE 09-10 08:27 → CSHERHOLD 09-10 08:27 → UNDODISIN 09-12 16:32
PROVIDERS: ADMIT Family Medicine; ATTEND Family Medicine
PROC: 5A1D70Z Performance of Urinary Filtration, Intermittent, Less than 6 Hours Per Day (ICD-10-PCS; principal; 2021-09-11)
DX: G95.11 Acute infarction of spinal cord (embolic) (nonembolic) (principal); N18.6 End stage renal disease; Z20.822 Contact with and (suspected) exposure to COVID-19; I12.0 Hypertensive chronic kidney disease with stage 5 chronic kidney disease or end stage renal disease; G37.3 Acute transverse myelitis in demyelinating disease of central nervous system; I25.10 Atherosclerotic heart disease of native coronary artery without angina pectoris; E78.5 Hyperlipidemia, unspecified; C14.0 Malignant neoplasm of pharynx, unspecified; M48.061 Spinal stenosis, lumbar region without neurogenic claudication; D63.1 Anemia in chronic kidney disease; C67.9 Malignant neoplasm of bladder, unspecified; I65.23 Occlusion and stenosis of bilateral carotid arteries; M47.816 Spondylosis without myelopathy or radiculopathy, lumbar region; E03.9 Hypothyroidism, unspecified; Z90.89 Acquired absence of other organs; Z88.7 Allergy status to serum and vaccine; Z79.82 Long term (current) use of aspirin; Z79.02 Long term (current) use of antithrombotics/antiplatelets; Z79.899 Other long term (current) drug therapy; Z92.3 Personal history of irradiation; Z92.21 Personal history of antineoplastic chemotherapy; Z98.890 Other specified postprocedural states
CPT/HCPCS: 36415; 70450; 70496; 70498; 70551; 70552; 71045; 72141; 72142; 72157; 72158; 80048; 80053; 80061; 82040; 82042; 82553; 82607; 82746; 82784; 83735; 83916; 84439; 84443; 84484; 85025; 86780; 87340; 90935; 93005; 96374; G0257; J1644; J2270; Q5105; U0003; U0005

== ENCOUNTER 2021-11-07 23:45 | Inpatient (IN) | payer BC, MEDICARE ==
[2021-11-08 00:53] LABS: #Basophils 0.1 10x3/uL (0.0-0.2); #Eosinphils 0.2 10x3/uL (0.0-0.5); #Monocytes 0.6 10x3/uL (0.0-1.1); #Neutrophils 4.8 10x3/uL (1.5-8.4); %Basophils 1.1 % (0.0-2.0); %Eosinophils 2.9 % (0.0-6.0); %Lymphocytes 12.5 % (18.0-47.0); %Monocytes 9.4 % (0.0-10.0); %Neutrophils 73.8 % (40.0-75.0); Hemoglobin 9.2 g/dL (13.5-17.5); Mean Corpuscular HGB CONC 32.4 g/dL (32.0-36.0); Mean Corpuscular Hemoglobin 32.3 pg (27.0-33.0); Mean Corpuscular Volume 99.6 fl (81.2-95.1); Mean Platelet Volume 10.2 fl (7.4-10.4); Platelet Count 200 10x3/uL (150-450); RBC Distribution Width 14.9 % (11.5-14.5); Red Blood Cell (RBC) Count 2.85 10x6/uL (4.32-5.72); White Blood Cell (WBC) Count 6.5 10x3/uL (3.5-10.5)
[2021-11-08 01:03] LABS: ALT (SGPT) 10 U/L (8-55); AST (SGOT) 20 U/L (5-34); Albumin 3.4 g/dL (3.4-4.8); Alkaline Phosphatase 71 U/L (40-110); Anion Gap 16 mmol/L (10-20); BUN (Urea Nitrogen) 26 mg/dL (8.4-25.7); Bilirubin, Total 0.4 mg/dL (0.2-1.2); Calc. Creatinine Clearance 0 mL/min (70-130); Carbon Dioxide 27 mmol/L (23-31); Chloride 100 mmol/L (98-107); Globulin 3.4 g/dL (2.4-3.5); Glucose 97 mg/dL (80-115); Protein, Total 6.8 g/dL (5.8-8.1); Sodium 139 mmol/L (136-145)
[2021-11-08 01:47] LABS: CKMB 1.6 ng/mL (0-6.6)
[2021-11-08] MEDS ORDERED: Acetaminophen 325 MG TAB PO PRN (02:10)
[2021-11-08] MEDS ORDERED: HYDROcodone/Acetaminophen 5/325 mg Tablet PO PRN (02:10)
[2021-11-08] MEDS ORDERED: Senokot S 8.6-50 MG TAB PO PRN (02:10)
[2021-11-08] MEDS ORDERED: Guaifenesin DM 100-10/5 ML UDCUP PO PRN (02:10)
[2021-11-08] MEDS ORDERED: Calcium Carbonate 500 MG ChewTAB PO PRN (02:10)
[2021-11-08] MEDS: hydrALAZINE 20 MG/ML VIAL SLOW IVP PRN (03:42)
[2021-11-08 04:11] VITALS: BMI 19.5
[2021-11-08] MEDS ORDERED: Ventolin HFA Inhaler 60 PUFF INHALER INH PRN (04:11)
[2021-11-08 05:46] LABS: Anion Gap 20 mmol/L (10-20); BUN (Urea Nitrogen) 27 mg/dL (8.4-25.7); Calc. Creatinine Clearance 9 mL/min (70-130); Carbon Dioxide 22 mmol/L (23-31); Glucose 153 mg/dL (80-115); Sodium 138 mmol/L (136-145)
[2021-11-08] MEDS: Levothyroxine Sodium 75 MCG TAB PO SCH (06:04)
[2021-11-08] MEDS: Nicotine 21 MG PATCH TD SCH (06:04)
[2021-11-08 06:10] LABS: CKMB 1.7 ng/mL (0-6.6)
[2021-11-08 06:19] LABS: Chloride 101 mmol/L (98-107)
[2021-11-08] MEDS ORDERED: Nitroglycerin 0.4 MG TAB (25 Tab Bottle) ONE (07:38)
[2021-11-08] MEDS ORDERED: EPOETIN ALFA-EPBX (ESRD) 4,000 UNIT/ML VIAL SC SCH (09:00)
[2021-11-08] MEDS: Heparin 5,000 UNITS/ML VIAL SC SCH ×2 (09:14→21:46)
[2021-11-08] MEDS: Clopidogrel Bisulfate 75 MG TAB PO SCH (09:14)
[2021-11-08] MEDS: cloNIDine 0.1 MG TAB PO SCH ×2 (09:14→23:46)
[2021-11-08] MEDS: Cholecalciferol 1,000 UNITS (25 MCG) TAB PO SCH (09:14)
[2021-11-08] MEDS: hydrALAZINE 25 MG TAB PO SCH ×2 (09:15→21:37)
[2021-11-08] MEDS: Amlodipine 10 MG TAB PO SCH (09:15)
[2021-11-08] MEDS ORDERED: Losartan Potassium 50 MG TAB PO SCH ×2 (10:00→17:00)
[2021-11-08] MEDS ORDERED: Heparin 10,000 UNITS/ 10 ML VIAL FS SCH (11:30)
[2021-11-08 17:22] LABS: SARS-CoV-2 PCR by NAA Not Detected (NotDetected)
[2021-11-08] MEDS: Rosuvastatin 10 MG TAB PO SCH (21:37)
[2021-11-08] MEDS: Aspirin 81 mg Enteric Coated Tablet PO SCH (21:38)
[2021-11-08] MEDS: Amitriptyline HCl 10 MG TAB PO SCH (21:38)
[2021-11-08] MEDS: Sodium Bicarbonate Tab 325 MG TAB PO SCH (21:38)
[2021-11-08] MEDS: Senokot S 8.6-50 MG TAB PO SCH (21:45)
[2021-11-09] MEDS: Levothyroxine Sodium 75 MCG TAB PO SCH (05:49)
[2021-11-09] MEDS: Nicotine 21 MG PATCH TD SCH (06:34)
[2021-11-09] MEDS: cloNIDine 0.1 MG TAB PO SCH ×2 (08:29→20:21)
[2021-11-09] MEDS: Cholecalciferol 1,000 UNITS (25 MCG) TAB PO SCH (08:29)
[2021-11-09] MEDS: hydrALAZINE 25 MG TAB PO SCH ×2 (08:30→20:22)
[2021-11-09] MEDS: Clopidogrel Bisulfate 75 MG TAB PO SCH (08:30)
[2021-11-09] MEDS: Heparin 5,000 UNITS/ML VIAL SC SCH ×2 (08:30→21:39)
[2021-11-09] MEDS: Amlodipine 10 MG TAB PO SCH (08:30)
[2021-11-09] MEDS: Losartan Potassium 50 MG TAB PO SCH (08:30)
[2021-11-09] MEDS: Rosuvastatin 10 MG TAB PO SCH (20:22)
[2021-11-09] MEDS: Aspirin 81 mg Enteric Coated Tablet PO SCH (20:22)
[2021-11-09] MEDS: Sodium Bicarbonate Tab 325 MG TAB PO SCH (20:22)
[2021-11-09] MEDS: Amitriptyline HCl 10 MG TAB PO SCH (20:22)
[2021-11-09] MEDS: ALPRAZolam 0.25 MG TAB PO SCH (20:23)
[2021-11-09] MEDS: Senokot S 8.6-50 MG TAB PO SCH (21:39)
[2021-11-10] MEDS: Nicotine 21 MG PATCH TD SCH (06:05)
[2021-11-10] MEDS: Levothyroxine Sodium 75 MCG TAB PO SCH (06:05)
[2021-11-10] MEDS ORDERED: Phenylephrine 40 MG/NS 250 ML 0 ML ONE (08:02)
[2021-11-10] MEDS: ALPRAZolam 0.25 MG TAB PO SCH ×2 (08:10→20:28)
[2021-11-10] MEDS: Heparin 5,000 UNITS/ML VIAL SC SCH ×2 (08:12→20:29)
[2021-11-10] MEDS: Amlodipine 10 MG TAB PO SCH (08:13)
[2021-11-10] MEDS: Cholecalciferol 1,000 UNITS (25 MCG) TAB PO SCH (08:13)
[2021-11-10] MEDS: Citalopram 20 MG TAB PO SCH (08:15)
[2021-11-10] MEDS: Clopidogrel Bisulfate 75 MG TAB PO SCH (08:15)
[2021-11-10] MEDS: cloNIDine 0.1 MG TAB PO SCH ×2 (08:15→20:29)
[2021-11-10] MEDS: Losartan Potassium 50 MG TAB PO SCH (08:16)
[2021-11-10] MEDS: hydrALAZINE 25 MG TAB PO SCH ×2 (08:16→20:26)
[2021-11-10 08:50] LABS: #Eosinphils 0.3 10x3/uL (0.0-0.5); #Monocytes 0.5 10x3/uL (0.0-1.1); #Neutrophils 3.5 10x3/uL (1.5-8.4); %Basophils 0.8 % (0.0-2.0); %Eosinophils 4.8 % (0.0-6.0); %Lymphocytes 15.7 % (18.0-47.0); %Monocytes 10.3 % (0.0-10.0); Hemoglobin 8.4 g/dL (13.5-17.5); Mean Corpuscular HGB CONC 32.1 g/dL (32.0-36.0); Mean Corpuscular Hemoglobin 32.4 pg (27.0-33.0); Mean Corpuscular Volume 101.2 fl (81.2-95.1); Mean Platelet Volume 10.1 fl (7.4-10.4); Platelet Count 173 10x3/uL (150-450); RBC Distribution Width 14.7 % (11.5-14.5); Red Blood Cell (RBC) Count 2.59 10x6/uL (4.32-5.72); White Blood Cell (WBC) Count 5.2 10x3/uL (3.5-10.5)
[2021-11-10 09:22] LABS: Anion Gap 15 mmol/L (10-20); BUN (Urea Nitrogen) 36 mg/dL (8.4-25.7); Calc. Creatinine Clearance 8 mL/min (70-130); Calcium 8.1 mg/dL (7.8-10.44); Carbon Dioxide 23 mmol/L (23-31); Chloride 107 mmol/L (98-107); Glucose 81 mg/dL (80-115); Potassium 4.7 mmol/L (3.5-5.1); Sodium 140 mmol/L (136-145)
[2021-11-10] MEDS ORDERED: Lidocaine 1% (PF) 30 ML VIAL ONE (10:17)
[2021-11-10] MEDS ORDERED: Atropine Sulfate 0.4 mg/1 ml Vial ONE (10:18)
[2021-11-10] MEDS ORDERED: Heparin 10,000 UNITS/ 10 ML VIAL ONE ×2 (10:18→11:23)
[2021-11-10] MEDS ORDERED: PHENYLEPHRINE-NS 100 MCG/ML 10 ML SYRINGE ONE (10:18)
[2021-11-10] MEDS ORDERED: Sodium Chloride 0.9% 1,000 ML ONE (10:19)
[2021-11-10] MEDS ORDERED: Fentanyl 100 MCG/2 ML VIAL ONE (10:52)
[2021-11-10] MEDS ORDERED: Midazolam HCl 2 mg/2 ml Vial ONE (10:53)
[2021-11-10] MEDS ORDERED: Nitroglycerin 50 MG/250 ML BOT 0 ML ONE (11:01)
[2021-11-10] MEDS ORDERED: Adenosine 6 MG/2 ML VIAL ONE (11:01)
[2021-11-10] MEDS: hydrALAZINE 20 MG/ML VIAL SLOW IVP PRN (16:29)
[2021-11-10] MEDS: Rosuvastatin 10 MG TAB PO SCH (20:28)
[2021-11-10] MEDS: Aspirin 81 mg Enteric Coated Tablet PO SCH (20:28)
[2021-11-10] MEDS: Senokot S 8.6-50 MG TAB PO SCH (20:28)
[2021-11-10] MEDS: Sodium Bicarbonate Tab 325 MG TAB PO SCH (20:28)
[2021-11-11] MEDS: Amitriptyline HCl 10 MG TAB PO SCH (00:33)
[2021-11-11 04:32] LABS: #Basophils 0.1 10x3/uL (0.0-0.2); #Eosinphils 0.2 10x3/uL (0.0-0.5); #Monocytes 0.6 10x3/uL (0.0-1.1); #Neutrophils 3.1 10x3/uL (1.5-8.4); %Basophils 1.2 % (0.0-2.0); %Eosinophils 3.4 % (0.0-6.0); %Lymphocytes 20.5 % (18.0-47.0); %Monocytes 11.2 % (0.0-10.0); %Neutrophils 63.3 % (40.0-75.0); Hemoglobin 7.6 g/dL (13.5-17.5); Mean Corpuscular HGB CONC 32.1 g/dL (32.0-36.0); Mean Corpuscular Hemoglobin 32.3 pg (27.0-33.0); Mean Corpuscular Volume 100.9 fl (81.2-95.1); Mean Platelet Volume 10.6 fl (7.4-10.4); Platelet Count 160 10x3/uL (150-450); RBC Distribution Width 14.8 % (11.5-14.5); Red Blood Cell (RBC) Count 2.35 10x6/uL (4.32-5.72); White Blood Cell (WBC) Count 4.9 10x3/uL (3.5-10.5)
[2021-11-11 05:02] LABS: ALT (SGPT) 8 U/L (8-55); AST (SGOT) 13 U/L (5-34); Albumin 2.9 g/dL (3.4-4.8); Alkaline Phosphatase 60 U/L (40-110); Anion Gap 15 mmol/L (10-20); BUN (Urea Nitrogen) 21 mg/dL (8.4-25.7); Bilirubin, Total 0.4 mg/dL (0.2-1.2); Calc. Creatinine Clearance 12 mL/min (70-130); Calcium 7.9 mg/dL (7.8-10.44); Carbon Dioxide 24 mmol/L (23-31); Chloride 104 mmol/L (98-107); Globulin 2.6 g/dL (2.4-3.5); Glucose 75 mg/dL (80-115); Potassium 4.4 mmol/L (3.5-5.1); Protein, Total 5.5 g/dL (5.8-8.1); Sodium 139 mmol/L (136-145)
[2021-11-11 05:37] VITALS: BP 153/59
[2021-11-11 05:40] VITALS: TEMP 98.6
[2021-11-11] MEDS: Levothyroxine Sodium 75 MCG TAB PO SCH (06:36)
[2021-11-11] MEDS: Nicotine 21 MG PATCH TD SCH (06:39)
[2021-11-11] MEDS ORDERED: Cholecalciferol 1,000 UNITS (25 MCG) TAB ONE (09:52)
[2021-11-11] MEDS: Citalopram 20 MG TAB PO SCH (09:57)
[2021-11-11] MEDS: Amlodipine 10 MG TAB PO SCH (09:57)
[2021-11-11] MEDS: ALPRAZolam 0.25 MG TAB PO SCH (09:57)
[2021-11-11] MEDS: Clopidogrel Bisulfate 75 MG TAB PO SCH (09:57)
[2021-11-11] MEDS: hydrALAZINE 25 MG TAB PO SCH (09:57)
[2021-11-11] MEDS: Losartan Potassium 50 MG TAB PO SCH (09:57)
[2021-11-11] MEDS: Heparin 5,000 UNITS/ML VIAL SC SCH (09:58)
[2021-11-11] MEDS: Cholecalciferol 1,000 UNITS (25 MCG) TAB PO SCH (09:58)
[2021-11-11] MEDS: cloNIDine 0.1 MG TAB PO SCH (09:59)
[2021-11-11 12:44] LABS: Hemoglobin 7.5 g/dL (13.5-17.5)
[2021-11-11] MEDS ORDERED: hydrALAZINE 25 MG TAB PO SCH (15:00)
== END 2021-11-11 14:15 | disposition home or self-care (01) | DRG 34 ==
LOC: CSHERS 23:45 → CSHTELE 11-08 03:14 → OBSVTOIN 11-10 08:47 → CSHIMCU 11-10 13:41
PROVIDERS: ADMIT Student in an Organized Health Care Education/Training Program; ATTEND Internal Medicine
PROC: 5A1D70Z Performance of Urinary Filtration, Intermittent, Less than 6 Hours Per Day (ICD-10-PCS; 2021-11-08)
PROC: 4A023N7 Measurement of Cardiac Sampling and Pressure, Left Heart, Percutaneous Approach (ICD-10-PCS; principal; 2021-11-10)
PROC: 037K3DZ Dilation of Right Internal Carotid Artery with Intraluminal Device, Percutaneous Approach (ICD-10-PCS; 2021-11-10)
PROC: B2111ZZ Fluoroscopy of Multiple Coronary Arteries using Low Osmolar Contrast (ICD-10-PCS; 2021-11-10)
PROC: B2151ZZ Fluoroscopy of Left Heart using Low Osmolar Contrast (ICD-10-PCS; 2021-11-10)
PROC: B31P1ZZ Fluoroscopy of Thoraco-Abdominal Aorta using Low Osmolar Contrast (ICD-10-PCS; 2021-11-10)
PROC: B41C1ZZ Fluoroscopy of Pelvic Arteries using Low Osmolar Contrast (ICD-10-PCS; 2021-11-10)
PROC: B3151ZZ Fluoroscopy of Bilateral Common Carotid Arteries using Low Osmolar Contrast (ICD-10-PCS; 2021-11-10)
PROC: B31N1ZZ Fluoroscopy of Other Upper Arteries using Low Osmolar Contrast (ICD-10-PCS; 2021-11-10)
PROC: 5A1D70Z Performance of Urinary Filtration, Intermittent, Less than 6 Hours Per Day (ICD-10-PCS; 2021-11-10)
DX: I65.21 Occlusion and stenosis of right carotid artery (principal); N18.6 End stage renal disease; I50.32 Chronic diastolic (congestive) heart failure; I13.2 Hypertensive heart and chronic kidney disease with heart failure and with stage 5 chronic kidney disease, or end stage renal disease; R07.9 Chest pain, unspecified; I27.20 Pulmonary hypertension, unspecified; E89.0 Postprocedural hypothyroidism; F17.210 Nicotine dependence, cigarettes, uncomplicated; D63.1 Anemia in chronic kidney disease; R77.8 Other specified abnormalities of plasma proteins; I16.0 Hypertensive urgency; I34.0 Nonrheumatic mitral (valve) insufficiency; I73.9 Peripheral vascular disease, unspecified; F41.9 Anxiety disorder, unspecified; Z85.51 Personal history of malignant neoplasm of bladder; Z88.7 Allergy status to serum and vaccine; Z79.82 Long term (current) use of aspirin; Z79.899 Other long term (current) drug therapy; Z99.2 Dependence on renal dialysis; Z86.73 Personal history of transient ischemic attack (TIA), and cerebral infarction without residual deficits; Z20.822 Contact with and (suspected) exposure to COVID-19
CPT/HCPCS: 36222; 36227; 36415; 36416; 37215; 71045; 80048; 80053; 82553; 84484; 85025; 90935; 93005; 93010; 93458; 94760; 96372; 99152; 99153; C1725; C1876; C1884; G0257; G0378; J0153; J0360; J0461; J1644; J2001; J2250; J3010; J7050; Q5105; U0003; U0005

== ENCOUNTER 2022-01-01 01:11 | Observation (INO) | payer BC, MEDICARE ==
[2022-01-01 02:21] LABS: #Basophils 0.1 10x3/uL (0.0-0.2); #Monocytes 0.5 10x3/uL (0.0-1.1); #Neutrophils 10.3 10x3/uL (1.5-8.4); %Basophils 0.5 % (0.0-2.0); %Eosinophils 0.3 % (0.0-6.0); %Lymphocytes 4.1 % (18.0-47.0); %Monocytes 4.6 % (0.0-10.0); %Neutrophils 88.9 % (40.0-75.0); Hemoglobin 7.9 g/dL (13.5-17.5); Mean Corpuscular HGB CONC 32.2 g/dL (32.0-36.0); Mean Corpuscular Hemoglobin 32.1 pg (27.0-33.0); Mean Corpuscular Volume 99.6 fl (81.2-95.1); Mean Platelet Volume 9.8 fl (7.4-10.4); Platelet Count 183 10x3/uL (150-450); RBC Distribution Width 15.2 % (11.5-14.5); Red Blood Cell (RBC) Count 2.46 10x6/uL (4.32-5.72); White Blood Cell (WBC) Count 11.6 10x3/uL (3.5-10.5)
[2022-01-01 02:31] LABS: ALT (SGPT) 10 U/L (8-55); AST (SGOT) 16 U/L (5-34); Albumin 3.2 g/dL (3.4-4.8); Alkaline Phosphatase 68 U/L (40-110); Anion Gap 18 mmol/L (10-20); BUN (Urea Nitrogen) 51 mg/dL (8.4-25.7); Bilirubin, Total 0.4 mg/dL (0.2-1.2); Calc. Creatinine Clearance 0 mL/min (70-130); Carbon Dioxide 21 mmol/L (23-31); Chloride 103 mmol/L (98-107); Globulin 2.7 g/dL (2.4-3.5); Glucose 97 mg/dL (80-115); Protein, Total 5.9 g/dL (5.8-8.1); Sodium 137 mmol/L (136-145)
[2022-01-01 03:54] LABS: SARS-CoV-2 NAA Rapid Test Not Detected (NotDetected)
[2022-01-01] MEDS ORDERED: Acetaminophen 325 MG TAB PO PRN (03:54)
[2022-01-01] MEDS ORDERED: traMADol HCl 50 MG TAB PO PRN (03:58)
[2022-01-01] MEDS ORDERED: Calcium Carbonate 500 MG ChewTAB PO PRN (03:58)
[2022-01-01 04:53] LABS: Phosphorus 6.7 mg/dL (2.3-4.7)
[2022-01-01] MEDS ORDERED: cefTRIAXone\\ROCEPHIN 1 GM in Sodium Chloride 0.9% 100 ML IVPB SCH (05:00)
[2022-01-01] MEDS: methylPREDNISolone Sod Succ 40 MG VIAL IVP SCH ×2 (05:05→16:37)
[2022-01-01] MEDS: Doxycycline 100 MG in Sodium Chloride 0.9% 100 ML IVPB SCH ×2 (05:06→16:37)
[2022-01-01] MEDS ORDERED: Levothyroxine 150 MCG TAB PO SCH (06:00)
[2022-01-01] MEDS ORDERED: Arformoterol 15 MCG/2 ML NEB NEB SCH (06:30)
[2022-01-01 08:30] VITALS: TEMP 97.7
[2022-01-01] MEDS ORDERED: Losartan Potassium 50 MG TAB PO SCH (09:00)
[2022-01-01] MEDS ORDERED: Amlodipine 10 MG TAB PO SCH (09:00)
[2022-01-01] MEDS ORDERED: EPOETIN ALFA-EPBX (ESRD) 10,000 UNIT/ML VIAL SC SCH (09:00)
[2022-01-01] MEDS ORDERED: Sucroferric Oxyhydroxide [Velphoro] 500 MG Tab.Chew PO SCH (09:00)
[2022-01-01] MEDS ORDERED: Clopidogrel Bisulfate 75 MG TAB PO SCH (09:00)
[2022-01-01] MEDS ORDERED: cloNIDine 0.1 MG TAB PO SCH (09:00)
[2022-01-01] MEDS ORDERED: Citalopram 20 MG TAB PO SCH (09:00)
[2022-01-01 09:58] VITALS: BMI 13.5
[2022-01-01] MEDS ORDERED: Heparin 10,000 UNITS/ 10 ML VIAL FS PRN (10:41)
[2022-01-01] MEDS ORDERED: EPOETIN ALFA-EPBX (ESRD) 4,000 UNIT/ML VIAL SC SCH (15:00)
[2022-01-01] MEDS: Sevelamer Carbonate 800 MG TAB PO SCH ×3 (15:45→16:45)
[2022-01-01] MEDS: Heparin 5,000 UNITS/ML VIAL SC SCH ×2 (15:48→16:02)
[2022-01-01] MEDS: hydrALAZINE 25 MG TAB PO SCH ×2 (15:55→16:02)
[2022-01-01] MEDS: Triple Antibiotic Oint 1 GM Packet TOP SCH ×2 (15:56)
[2022-01-01 16:01] VITALS: BP 150/57
[2022-01-01] MEDS ORDERED: Simvastatin 10 MG TAB PO SCH (21:00)
[2022-01-01] MEDS ORDERED: Amitriptyline HCl 10 MG TAB PO SCH (21:00)
[2022-01-01] MEDS ORDERED: Senokot S 8.6-50 MG TAB PO SCH (21:00)
[2022-01-01] MEDS ORDERED: Aspirin 81 mg Enteric Coated Tablet PO SCH (21:00)
[2022-01-01] MEDS ORDERED: Cholecalciferol 1,000 UNITS (25 MCG) TAB PO SCH (21:00)
[2022-01-01] MEDS ORDERED: Sodium Bicarbonate Tab 325 MG TAB PO SCH (21:00)
== END 2022-01-01 17:35 | disposition home or self-care (01) ==
LOC: CSHERS 01:11 → CSHTELE 03:35
PROVIDERS: ADMIT Family Medicine; ATTEND Internal Medicine
DX: J96.01 Acute respiratory failure with hypoxia (principal); J44.1 Chronic obstructive pulmonary disease with (acute) exacerbation; I12.0 Hypertensive chronic kidney disease with stage 5 chronic kidney disease or end stage renal disease; N18.6 End stage renal disease; Z99.2 Dependence on renal dialysis; F17.210 Nicotine dependence, cigarettes, uncomplicated; I34.0 Nonrheumatic mitral (valve) insufficiency; E78.2 Mixed hyperlipidemia; D63.1 Anemia in chronic kidney disease; Z79.82 Long term (current) use of aspirin; Z79.899 Other long term (current) drug therapy; Z85.819 Personal history of malignant neoplasm of unspecified site of lip, oral cavity, and pharynx; R91.1 Solitary pulmonary nodule; Z20.822 Contact with and (suspected) exposure to COVID-19
CPT/HCPCS: 36415; 71045; 80053; 83735; 84100; 85025; 90935; 93005; 94640; 94760; 96372; 96374; 96375; 96376; G0257; G0378; J0696; J1644; J2920; J3490; J7620; Q5105; U0002

== ENCOUNTER 2022-02-11 23:16 | Emergency (ER) | payer BC, MEDICARE ==
[2022-02-12 00:18] LABS: ALT (SGPT) 6 U/L (8-55); AST (SGOT) 13 U/L (5-34); Albumin 3.3 g/dL (3.4-4.8); Alkaline Phosphatase 56 U/L (40-110); Anion Gap 21 mmol/L (10-20); BUN (Urea Nitrogen) 60 mg/dL (8.4-25.7); Bilirubin, Total 0.4 mg/dL (0.2-1.2); Calc. Creatinine Clearance 0 mL/min (70-130); Calcium 8.5 mg/dL (7.8-10.44); Carbon Dioxide 20 mmol/L (23-31); Chloride 102 mmol/L (98-107); Globulin 3.1 g/dL (2.4-3.5); Glucose 102 mg/dL (80-115); Potassium 4.5 mmol/L (3.5-5.1); Protein, Total 6.4 g/dL (5.8-8.1); Sodium 138 mmol/L (136-145)
[2022-02-12 00:29] LABS: #Basophils 0.1 10x3/uL (0.0-0.2); #Eosinphils 0.2 10x3/uL (0.0-0.5); #Monocytes 0.8 10x3/uL (0.0-1.1); #Neutrophils 13.5 10x3/uL (1.5-8.4); %Basophils 0.7 % (0.0-2.0); %Eosinophils 1.2 % (0.0-6.0); %Lymphocytes 4.1 % (18.0-47.0); %Monocytes 4.9 % (0.0-10.0); %Neutrophils 88.1 % (40.0-75.0); Hemoglobin 9.4 g/dL (13.5-17.5); Mean Corpuscular HGB CONC 31.1 g/dL (32.0-36.0); Mean Corpuscular Hemoglobin 30.6 pg (27.0-33.0); Mean Corpuscular Volume 98.4 fl (81.2-95.1); Platelet Count 352 10x3/uL (150-450); RBC Distribution Width 15.6 % (11.5-14.5); Red Blood Cell (RBC) Count 3.07 10x6/uL (4.32-5.72); White Blood Cell (WBC) Count 15.3 10x3/uL (3.5-10.5)
[2022-02-12 01:01] LABS: CKMB 2.7 ng/mL (0-6.6)
== END 2022-02-12 01:20 | disposition home or self-care (01) ==
LOC: CSHERS 23:16
DX: R06.00 Dyspnea, unspecified (principal); I12.0 Hypertensive chronic kidney disease with stage 5 chronic kidney disease or end stage renal disease; N18.6 End stage renal disease; E78.5 Hyperlipidemia, unspecified; K21.9 Gastro-esophageal reflux disease without esophagitis; F17.210 Nicotine dependence, cigarettes, uncomplicated
CPT/HCPCS: 71045; 80053; 82553; 84484; 85025; 93005; 94760

== ENCOUNTER 2022-05-17 11:40 | Outpatient (CLI) | payer BC, MEDICARE ==
[2022-05-17 13:32] LABS: Hemoglobin 9.4 g/dL (13.5-17.5); Mean Corpuscular HGB CONC 31.4 g/dL (32.0-36.0); Mean Corpuscular Hemoglobin 31.1 pg (27.0-33.0); Mean Platelet Volume 10.8 fl (7.4-10.4); Platelet Count 224 10x3/uL (150-450); Red Blood Cell (RBC) Count 3.02 10x6/uL (4.32-5.72); White Blood Cell (WBC) Count 5.6 10x3/uL (3.5-10.5)
[2022-05-17 14:01] LABS: Anion Gap 21 mmol/L (10-20); BUN (Urea Nitrogen) 46 mg/dL (8.4-25.7); Calc. Creatinine Clearance 0 mL/min (70-130); Calcium 8.1 mg/dL (7.8-10.44); Carbon Dioxide 24 mmol/L (23-31); Chloride 102 mmol/L (98-107); Estimated GFR 11; Glucose 61 mg/dL (80-115); Potassium 4.6 mmol/L (3.5-5.1); Sodium 142 mmol/L (136-145)
== END 2022-05-17 11:41 | disposition home or self-care (01) ==
LOC: CSHLAB 11:40
PROVIDERS: ATTEND Specialist
DX: Z01.818 Encounter for other preprocedural examination (principal); Z20.822 Contact with and (suspected) exposure to COVID-19; R94.39 Abnormal result of other cardiovascular function study; I65.29 Occlusion and stenosis of unspecified carotid artery
CPT/HCPCS: 80048; 85027; 87811; 93005; 93010

== ENCOUNTER 2022-05-22 05:38 | Day surgery (SDC) | payer BC, MEDICARE ==
[2022-05-18 14:51] VITALS: BMI 18.2
[2022-05-22] MEDS ORDERED: Fentanyl 100 MCG/2 ML VIAL ONE (06:33)
[2022-05-22] MEDS ORDERED: Ondansetron PF 4 MG/2 ML Vial ONE (06:34)
[2022-05-22] MEDS ORDERED: Lidocaine 1% PF 5 ML VIAL ONE (06:34)
[2022-05-22] MEDS ORDERED: PROPOFOL 20 ML ONE (06:34)
[2022-05-22] MEDS ORDERED: EPINEPHrine 1 MG/ML AMP ONE (06:37)
[2022-05-22] MEDS ORDERED: Bupivacaine PF 0.5% 30 ML VIAL ONE (06:37)
[2022-05-22] MEDS ORDERED: Bupivacaine 0.25% HCL 30 ML VIAL ONE (06:39)
[2022-05-22] MEDS ORDERED: CEFAZOLIN 2 GM VIAL ONE (06:57)
[2022-05-22] MEDS ORDERED: Succinylcholine 200 MG/10 ml SYRINGE FS ONE (07:23)
[2022-05-22] MEDS ORDERED: Dexamethasone 20 MG/5 ML VIAL ONE (07:23)
[2022-05-22] MEDS ORDERED: ePHEDrine Sulfate 50 MG/10 ML VIAL ONE (07:28)
[2022-05-22] MEDS ORDERED: Acetaminophen 325 MG TAB PO PRN (08:28)
== END 2022-05-22 08:50 | disposition home or self-care (01) ==
LOC: CSHSDC 05:38
PROVIDERS: ATTEND Surgery
PROC: 0JH60WZ Insertion of Totally Implantable Vascular Access Device into Chest Subcutaneous Tissue and Fascia, Open Approach (ICD-10-PCS; principal; 2022-05-22)
DX: C34.12 Malignant neoplasm of upper lobe, left bronchus or lung (principal); C67.2 Malignant neoplasm of lateral wall of bladder; I12.0 Hypertensive chronic kidney disease with stage 5 chronic kidney disease or end stage renal disease; N18.6 End stage renal disease; Z99.2 Dependence on renal dialysis; D63.1 Anemia in chronic kidney disease; Z85.21 Personal history of malignant neoplasm of larynx; F17.200 Nicotine dependence, unspecified, uncomplicated; F41.9 Anxiety disorder, unspecified; F32.A Depression, unspecified; Z20.822 Contact with and (suspected) exposure to COVID-19; Z79.02 Long term (current) use of antithrombotics/antiplatelets; Z79.899 Other long term (current) drug therapy; Z88.7 Allergy status to serum and vaccine
CPT/HCPCS: C1788; J0171; J0690; J1100; J1642; J2405; J2704; J3010; S0020

== ENCOUNTER 2022-06-09 23:47 | Emergency (ER) | payer BC, MEDICARE ==
[2022-06-10 00:57] LABS: #Basophils 0.1 10x3/uL (0.0-0.2); #Eosinphils 0.1 10x3/uL (0.0-0.5); #Monocytes 0.2 10x3/uL (0.0-1.1); #Neutrophils 3.6 10x3/uL (1.5-8.4); %Basophils 1.2 % (0.0-2.0); %Eosinophils 1.2 % (0.0-6.0); %Monocytes 4.8 % (0.0-10.0); %Neutrophils 86.1 % (40.0-75.0); Hemoglobin 8.5 g/dL (13.5-17.5); Mean Corpuscular HGB CONC 31.7 g/dL (32.0-36.0); Mean Corpuscular Hemoglobin 32.9 pg (27.0-33.0); Mean Corpuscular Volume 103.9 fl (81.2-95.1); Mean Platelet Volume 11.2 fl (7.4-10.4); Platelet Count 141 10x3/uL (150-450); RBC Distribution Width 18.5 % (11.5-14.5); Red Blood Cell (RBC) Count 2.58 10x6/uL (4.32-5.72); White Blood Cell (WBC) Count 4.2 10x3/uL (3.5-10.5)
[2022-06-10 00:58] LABS: ALT (SGPT) 19 U/L (8-55); AST (SGOT) 28 U/L (5-34); Albumin 3.8 g/dL (3.4-4.8); Alkaline Phosphatase 66 U/L (40-110); Anion Gap 20 mmol/L (10-20); BUN (Urea Nitrogen) 50 mg/dL (8.4-25.7); Bilirubin, Total 0.5 mg/dL (0.2-1.2); Calc. Creatinine Clearance 0 mL/min (70-130); Calcium 8.2 mg/dL (7.8-10.44); Carbon Dioxide 25 mmol/L (23-31); Chloride 98 mmol/L (98-107); Estimated GFR 8; Glucose 119 mg/dL (80-115); Lipase 6 U/L (8-78); Protein, Total 6.8 g/dL (5.8-8.1); Sodium 139 mmol/L (136-145)
[2022-06-10] MEDS ORDERED: Ondansetron PF 4 MG/2 ML Vial ONE (01:01)
[2022-06-10] MEDS ORDERED: Morphine 4 MG/ML VIAL ONE (01:01)
[2022-06-10 01:19] LABS: CKMB 3.1 ng/mL (0-6.6)
== END 2022-06-10 04:50 | disposition home or self-care (01) ==
LOC: CSHERS 23:47
DX: R06.02 Shortness of breath (principal); I12.0 Hypertensive chronic kidney disease with stage 5 chronic kidney disease or end stage renal disease; N18.6 End stage renal disease; Z99.2 Dependence on renal dialysis; K21.9 Gastro-esophageal reflux disease without esophagitis; F17.210 Nicotine dependence, cigarettes, uncomplicated
CPT/HCPCS: 36415; 70490; 71045; 80053; 82553; 83690; 84484; 85025; 93005; 94760; 96374; 96375; J2270; J2405

== ENCOUNTER 2022-07-16 04:10 | Inpatient (IN) | payer BC, MEDICARE ==
[2022-07-16] MEDS ORDERED: Aspirin Chewable 81 MG TAB ONE (04:54)
[2022-07-16 05:13] LABS: #Monocytes 0.6 10x3/uL (0.0-1.1); #Neutrophils 6.6 10x3/uL (1.5-8.4); %Basophils 0.3 % (0.0-2.0); %Eosinophils 0.3 % (0.0-6.0); %Lymphocytes 3.5 % (18.0-47.0); %Monocytes 7.6 % (0.0-10.0); %Neutrophils 87.6 % (40.0-75.0); Mean Corpuscular HGB CONC 32.3 g/dL (32.0-36.0); Mean Corpuscular Hemoglobin 35.7 pg (27.0-33.0); Mean Corpuscular Volume 110.7 fl (81.2-95.1); Mean Platelet Volume 11.6 fl (7.4-10.4); Platelet Count 130 10x3/uL (150-450); RBC Distribution Width 18.7 % (11.5-14.5); Red Blood Cell (RBC) Count 2.24 10x6/uL (4.32-5.72); White Blood Cell (WBC) Count 7.5 10x3/uL (3.5-10.5)
[2022-07-16] MEDS ORDERED: cefTRIAXone\\ROCEPHIN 1 GM VIAL ONE (05:14)
[2022-07-16 05:17] LABS: INR-International Normal Ratio 1.2
[2022-07-16] MEDS ORDERED: Azithromycin 500 MG VIAL ONE (05:24)
[2022-07-16] MEDS ORDERED: Diltiazem 125 MG/25 ML ONE (05:25)
[2022-07-16 05:32] LABS: Bilirubin Neg (Negative); Blood, Urine 50 (Negative); Clarity Sl. Cloudy (Clear); Glucose, Urine (Dipstick) 100 mg/dL (Negative); Ketone, Urine Negative (Negative); Leukocyte 500 (Negative); Nitrite Negative (Negative); Protein, Urine (Dipstick) 500 mg/dl (Neg-Trace); Urobilinogen Normal mg/dL (Less than 2)
[2022-07-16] MEDS ORDERED: Fentanyl 100 MCG/2 ML VIAL ONE (05:44)
[2022-07-16 05:46] LABS: Bacteria/HPF 4+ HPF (None Seen); Squamous Epithelial 0-3 HPF (0-3)
[2022-07-16] MEDS ORDERED: Digoxin 0.5 MG/2 ML AMP ONE (05:52)
[2022-07-16 05:53] LABS: ALT (SGPT) 226 U/L (8-55); AST (SGOT) 266 U/L (5-34); Albumin 3.5 g/dL (3.4-4.8); Alkaline Phosphatase 156 U/L (40-110); Anion Gap 23 mmol/L (10-20); BUN (Urea Nitrogen) 69 mg/dL (8.4-25.7); Bilirubin, Total 0.7 mg/dL (0.2-1.2); CK (CPK) 48 U/L (30-200); Calc. Creatinine Clearance 0 mL/min (70-130); Calcium 8.5 mg/dL (7.8-10.44); Carbon Dioxide 19 mmol/L (23-31); Chloride 99 mmol/L (98-107); Estimated GFR 7; Glucose 95 mg/dL (80-115); Lipase 5 U/L (8-78); Magnesium 2.1 mg/dL (1.6-2.6); Potassium 5.7 mmol/L (3.5-5.1); Protein, Total 6.5 g/dL (5.8-8.1); Sodium 135 mmol/L (136-145)
[2022-07-16] MEDS ORDERED: Enoxaparin Sodium 60 MG/0.6 ML SYRINGE ONE (06:26)
[2022-07-16 06:27] LABS: SARS-CoV-2 NAA Rapid Test Not Detected (NotDetected)
[2022-07-16] MEDS ORDERED: Acetaminophen 325 MG TAB PO PRN (06:27)
[2022-07-16] MEDS ORDERED: Guaifenesin DM 100-10/5 ML UDCUP PO PRN (06:27)
[2022-07-16] MEDS ORDERED: Senokot S 8.6-50 MG TAB PO PRN (06:27)
[2022-07-16] MEDS ORDERED: HYDROcodone/Acetaminophen 5/325 mg Tablet PO PRN (06:27)
[2022-07-16] MEDS ORDERED: Calcium Carbonate 500 MG ChewTAB PO PRN (06:27)
[2022-07-16 06:42] LABS: Anisocytosis SLIGHT = 6-15 cells (100X) (0-5/hpf); Hypochromia SLIGHT = 6-15 cells (100X) (0-5/hpf); Macrocytosis SLIGHT = 6-15 cells (100X) (0-5/hpf); Platelet Morphology Comment Appears Decreased
[2022-07-16] MEDS ORDERED: Famotidine/PF 20 mg/2ml Vial SLOW IVP SCH (06:45)
[2022-07-16] MEDS ORDERED: Diltiazem 125 MG in Sodium Chloride 0.9% 100 ML IVPB SCH (06:45)
[2022-07-16] MEDS ORDERED: Famotidine/PF 20 mg/2ml Vial ONE (06:49)
[2022-07-16] MEDS ORDERED: Lidocaine Viscous Sol 2% 15 ml UD Cup ONE (06:49)
[2022-07-16] MEDS ORDERED: Mag-Al Plus 1200 MG/1200 MG/120 MG/30 ML UDCUP ONE (06:49)
[2022-07-16] MEDS ORDERED: Magnesium 2 GM/50 ML BAG (IN WATER) ONE (07:04)
[2022-07-16] MEDS ORDERED: Ondansetron PF 4 MG/2 ML Vial ONE (07:50)
[2022-07-16 08:43] LABS: CK (CPK) 66 U/L (30-200); Lipase 15 U/L (8-78)
[2022-07-16] MEDS ORDERED: Aspirin 81 mg Enteric Coated Tablet PO SCH (09:00)
[2022-07-16 09:07] LABS: CKMB 3.8 ng/mL (0-6.6)
[2022-07-16] MEDS ORDERED: Morphine 2 MG/ML VIAL SLOW IVP SCH (09:15)
[2022-07-16 09:16] LABS: HBSAg Index 0.27 S/CO (0-0.99); Hep B Surf Ag Non-Reactive S/CO (NonReactive)
[2022-07-16] MEDS ORDERED: Levothyroxine Sodium 100 MCG TAB PO SCH (09:30)
[2022-07-16] MEDS ORDERED: methylPREDNISolone Sod Succ 40 MG VIAL IVP SCH (09:30)
[2022-07-16] MEDS ORDERED: Lidocaine 2% Viscous Solution 10 ML, Aluminum & Magnesium Hydroxide 30 ML SSW SCH (10:00)
[2022-07-16 12:22] LABS: CKMB 3.6 ng/mL (0-6.6)
[2022-07-16 13:18] LABS: HBCM Index 0.06 S/CO (0-0.79); Hep A IgM AB Non-Reactive (NonReactive); Hep A IgM S/CO 0.18 S/CO (0-0.79); Hep C IgG Ab Non-Reactive (NonReactive); Hep C Index 0.09 S/CO (0-0.79); Hepatitis B Core IgM Abs Non-Reactive (NonReactive)
[2022-07-16] MEDS ORDERED: Sotalol HCl 80 MG TAB PO SCH (13:30)
[2022-07-16] MEDS ORDERED: Labetalol HCl 100 MG/20 ML VIAL SLOW IVP SCH (16:45)
[2022-07-16] MEDS ORDERED: Epoetin (ESRD) 10,000 UNITS/ML VIAL SC SCH (17:00)
[2022-07-16] MEDS: Mometasone/Formoterol 200/5 60 PUFF INH SCH (20:20)
[2022-07-16] MEDS: Cholecalciferol 1,000 UNITS (25 MCG) TAB PO SCH (20:22)
[2022-07-16] MEDS: Sertraline 100 MG TAB PO SCH (20:22)
[2022-07-16] MEDS: Sotalol HCl 80 MG TAB PO SCH (21:21)
[2022-07-17] MEDS ORDERED: Labetalol HCl 100 MG/20 ML VIAL SLOW IVP SCH (01:00)
[2022-07-17 04:32] LABS: #Monocytes 0.3 10x3/uL (0.0-1.1); %Basophils 0.2 % (0.0-2.0); %Lymphocytes 7.6 % (18.0-47.0); %Monocytes 6.6 % (0.0-10.0); %Neutrophils 84.8 % (40.0-75.0); Hemoglobin 8.8 g/dL (13.5-17.5); Mean Corpuscular HGB CONC 31.8 g/dL (32.0-36.0); Mean Corpuscular Hemoglobin 34.5 pg (27.0-33.0); Mean Corpuscular Volume 108.6 fl (81.2-95.1); Mean Platelet Volume 11.7 fl (7.4-10.4); Platelet Count 149 10x3/uL (150-450); RBC Distribution Width 18.6 % (11.5-14.5); Red Blood Cell (RBC) Count 2.55 10x6/uL (4.32-5.72); White Blood Cell (WBC) Count 4.7 10x3/uL (3.5-10.5)
[2022-07-17 04:46] LABS: ALT (SGPT) 336 U/L (8-55); AST (SGOT) 277 U/L (5-34); Albumin 3.3 g/dL (3.4-4.8); Alkaline Phosphatase 194 U/L (40-110); Anion Gap 22 mmol/L (10-20); BUN (Urea Nitrogen) 45 mg/dL (8.4-25.7); Bilirubin, Total 0.6 mg/dL (0.2-1.2); Calc. Creatinine Clearance 12 mL/min (70-130); Calcium 8.3 mg/dL (7.8-10.44); Carbon Dioxide 22 mmol/L (23-31); Chloride 98 mmol/L (98-107); Estimated GFR 13; Globulin 3.1 g/dL (2.4-3.5); Glucose 93 mg/dL (80-115); Potassium 5.3 mmol/L (3.5-5.1); Protein, Total 6.4 g/dL (5.8-8.1); Sodium 137 mmol/L (136-145)
[2022-07-17] MEDS: Levothyroxine Sodium 100 MCG TAB PO SCH (04:58)
[2022-07-17] MEDS: cefTRIAXone\\ROCEPHIN 1 GM in Sodium Chloride 0.9% 100 ML IVPB SCH (04:58)
[2022-07-17 06:11] LABS: Anisocytosis SLIGHT = 6-15 cells (100X) (0-5/hpf); Hypochromia SLIGHT = 6-15 cells (100X) (0-5/hpf); Macrocytosis SLIGHT = 6-15 cells (100X) (0-5/hpf); Poikilocytosis SLIGHT = 6-15 cells (100X) (0-5/hpf)
[2022-07-17 06:12] LABS: Platelet Morphology Comment Appears Decreased; Polychromasia SLIGHT = 2-3 cells (100X) (0-2/hpf)
[2022-07-17] MEDS: Mometasone/Formoterol 200/5 60 PUFF INH SCH ×2 (07:57→19:35)
[2022-07-17] MEDS: Sotalol HCl 80 MG TAB PO SCH (08:10)
[2022-07-17] MEDS: Pantoprazole 40 MG VIAL IVP SCH (08:10)
[2022-07-17] MEDS ORDERED: Iopamidol 300 61% 100 ML VIAL FS ONE (09:18)
[2022-07-17] MEDS: Ondansetron PF 4 MG/2 ML Vial IVP PRN (17:25)
[2022-07-17] MEDS ORDERED: Morphine 2 MG/ML VIAL SLOW IVP SCH (17:45)
[2022-07-17] MEDS: Morphine 2 MG/ML VIAL SLOW IVP PRN ×2 (19:29→21:55)
[2022-07-17 20:30] LABS: #Monocytes 0.8 10x3/uL (0.0-1.1); #Neutrophils 7.1 10x3/uL (1.5-8.4); %Basophils 0.2 % (0.0-2.0); %Lymphocytes 7.4 % (18.0-47.0); %Monocytes 9.2 % (0.0-10.0); %Neutrophils 82.3 % (40.0-75.0); Mean Corpuscular HGB CONC 32.2 g/dL (32.0-36.0); Mean Corpuscular Hemoglobin 35.5 pg (27.0-33.0); Mean Corpuscular Volume 110.3 fl (81.2-95.1); Mean Platelet Volume 11.1 fl (7.4-10.4); Platelet Count 185 10x3/uL (150-450); RBC Distribution Width 18.9 % (11.5-14.5); Red Blood Cell (RBC) Count 2.82 10x6/uL (4.32-5.72); White Blood Cell (WBC) Count 8.7 10x3/uL (3.5-10.5)
[2022-07-17] MEDS ORDERED: Morphine 4 MG/ML VIAL SLOW IVP SCH (20:30)
[2022-07-17 20:50] LABS: ALT (SGPT) 445 U/L (8-55); AST (SGOT) 310 U/L (5-34); Albumin 3.5 g/dL (3.4-4.8); Alkaline Phosphatase 190 U/L (40-110); Anion Gap 25 mmol/L (10-20); BUN (Urea Nitrogen) 67 mg/dL (8.4-25.7); Bilirubin, Total 0.9 mg/dL (0.2-1.2); Calc. Creatinine Clearance 10 mL/min (70-130); Calcium 8.5 mg/dL (7.8-10.44); Carbon Dioxide 20 mmol/L (23-31); Chloride 95 mmol/L (98-107); Estimated GFR 10; Globulin 3.2 g/dL (2.4-3.5); Glucose 143 mg/dL (80-115); Lipase 7 U/L (8-78); Magnesium 2.6 mg/dL (1.6-2.6); Protein, Total 6.7 g/dL (5.8-8.1); Sodium 133 mmol/L (136-145)
[2022-07-17 20:54] LABS: Potassium 7.1 mmol/L (3.5-5.1)
[2022-07-17] MEDS ORDERED: Dextrose 50% Abboject 50 ML SYRINGE SLOW IVP PRN (21:21)
[2022-07-17] MEDS ORDERED: Insulin Regular 300 UNITS/3 ML VIAL IVP SCH (21:30)
[2022-07-17] MEDS ORDERED: Albuterol Sulfate 2.5 mg/3 ml Neb NEB SCH (21:30)
[2022-07-17] MEDS ORDERED: CALCIUM GLUC 1GM/NS 50ML 1 GM in Premix Bag 1 BAG IVPB SCH (21:30)
[2022-07-17] MEDS: Cholecalciferol 1,000 UNITS (25 MCG) TAB PO SCH (22:14)
[2022-07-17] MEDS: Sertraline 100 MG TAB PO SCH (22:14)
[2022-07-18] MEDS: Heparin 10,000 UNITS/ 10 ML VIAL FS PRN (00:12)
[2022-07-18] MEDS: Morphine 2 MG/ML VIAL SLOW IVP PRN ×4 (05:38→23:22)
[2022-07-18] MEDS: Ondansetron PF 4 MG/2 ML Vial IVP PRN ×3 (05:38→18:38)
[2022-07-18] MEDS: Levothyroxine Sodium 100 MCG TAB PO SCH (05:46)
[2022-07-18] MEDS: cefTRIAXone\\ROCEPHIN 1 GM in Sodium Chloride 0.9% 100 ML IVPB SCH (05:47)
[2022-07-18 06:17] LABS: Anion Gap 20 mmol/L (10-20); BUN (Urea Nitrogen) 38 mg/dL (8.4-25.7); Calc. Creatinine Clearance 13 mL/min (70-130); Calcium 7.7 mg/dL (7.8-10.44); Carbon Dioxide 23 mmol/L (23-31); Chloride 96 mmol/L (98-107); Estimated GFR 17; Glucose 72 mg/dL (80-115); Potassium 4.8 mmol/L (3.5-5.1); Sodium 134 mmol/L (136-145)
[2022-07-18 07:02] LABS: %Lymphocytes 5.1 % (18.0-47.0); %Neutrophils 84.9 % (40.0-75.0); Hemoglobin 8.6 g/dL (13.5-17.5); Mean Corpuscular HGB CONC 32.2 g/dL (32.0-36.0); Mean Corpuscular Hemoglobin 34.7 pg (27.0-33.0); Mean Corpuscular Volume 107.7 fl (81.2-95.1); Mean Platelet Volume 12.2 fl (7.4-10.4); Platelet Count 139 10x3/uL (150-450); RBC Distribution Width 18.3 % (11.5-14.5); Red Blood Cell (RBC) Count 2.48 10x6/uL (4.32-5.72); White Blood Cell (WBC) Count 7.8 10x3/uL (3.5-10.5)
[2022-07-18 07:03] LABS: #Monocytes 0.7 10x3/uL (0.0-1.1); #Neutrophils 6.6 10x3/uL (1.5-8.4); %Basophils 0.1 % (0.0-2.0); %Monocytes 8.6 % (0.0-10.0)
[2022-07-18] MEDS: Pantoprazole 40 MG VIAL IVP SCH (08:19)
[2022-07-18] MEDS: Mometasone/Formoterol 200/5 60 PUFF INH SCH ×2 (08:34→19:15)
[2022-07-18] MEDS ORDERED: predniSONE 50 MG TAB PO SCH (09:00)
[2022-07-18] MEDS ORDERED: Digoxin 0.5 MG/2 ML AMP SLOW IVP SCH (09:00)
[2022-07-18] MEDS ORDERED: Bisacodyl 10 MG SUPP PR PRN (13:59)
[2022-07-18] MEDS ORDERED: Vancomycin Hemodialysis Sliding Scale FS SCH (15:15)
[2022-07-18] MEDS ORDERED: Vancomycin HCl 1 GM in Sodium Chloride 0.9% 250 ML 250 ML IVPB SCH (15:30)
[2022-07-18 16:33] LABS: Anion Gap 16 mmol/L (10-20); BUN (Urea Nitrogen) 13 mg/dL (8.4-25.7); Calc. Creatinine Clearance 35 mL/min (70-130); Calcium 8.4 mg/dL (7.8-10.44); Carbon Dioxide 26 mmol/L (23-31); Chloride 97 mmol/L (98-107); Estimated GFR 56; Glucose 83 mg/dL (80-115); Potassium 3.3 mmol/L (3.5-5.1); Sodium 136 mmol/L (136-145)
[2022-07-18] MEDS: Sertraline 100 MG TAB PO SCH (21:25)
[2022-07-18] MEDS: Cholecalciferol 1,000 UNITS (25 MCG) TAB PO SCH (21:25)
[2022-07-19] MEDS: Ondansetron PF 4 MG/2 ML Vial IVP PRN ×3 (00:38→17:05)
[2022-07-19 04:33] LABS: #Monocytes 0.4 10x3/uL (0.0-1.1); #Neutrophils 6.4 10x3/uL (1.5-8.4); %Basophils 0.4 % (0.0-2.0); %Lymphocytes 4.6 % (18.0-47.0); %Monocytes 5.9 % (0.0-10.0); %Neutrophils 87.6 % (40.0-75.0); Hemoglobin 10.3 g/dL (13.5-17.5); Mean Corpuscular HGB CONC 31.3 g/dL (32.0-36.0); Mean Corpuscular Hemoglobin 34.6 pg (27.0-33.0); Mean Corpuscular Volume 110.4 fl (81.2-95.1); Mean Platelet Volume 12.2 fl (7.4-10.4); Platelet Count 165 10x3/uL (150-450); RBC Distribution Width 18.5 % (11.5-14.5); Red Blood Cell (RBC) Count 2.98 10x6/uL (4.32-5.72); White Blood Cell (WBC) Count 7.3 10x3/uL (3.5-10.5)
[2022-07-19 04:36] LABS: INR-International Normal Ratio 1.5; Prothrombin Time 16.4 sec (9.5-12.1)
[2022-07-19 04:38] LABS: ALT (SGPT) 964 U/L (8-55); AST (SGOT) 649 U/L (5-34); Albumin 3.2 g/dL (3.4-4.8); Alkaline Phosphatase 168 U/L (40-110); Anion Gap 21 mmol/L (10-20); BUN (Urea Nitrogen) 40 mg/dL (8.4-25.7); Bilirubin, Direct 0.3 mg/dL (0.1-0.3); Bilirubin, Total 0.7 mg/dL (0.2-1.2); Calc. Creatinine Clearance 14 mL/min (70-130); Calcium 7.9 mg/dL (7.8-10.44); Carbon Dioxide 21 mmol/L (23-31); Chloride 98 mmol/L (98-107); Estimated GFR 18; Globulin 3.1 g/dL (2.4-3.5); Glucose 97 mg/dL (80-115); Potassium 5.2 mmol/L (3.5-5.1); Protein, Total 6.3 g/dL (5.8-8.1); Sodium 135 mmol/L (136-145)
[2022-07-19 04:45] LABS: Thyroid Stimulating Hormone 3.9216 uIU/mL (0.35-4.94)
[2022-07-19] MEDS: Levothyroxine Sodium 100 MCG TAB PO SCH (05:29)
[2022-07-19 06:08] LABS: Anisocytosis SLIGHT = 6-15 cells (100X) (0-5/hpf); Hypochromia SLIGHT = 6-15 cells (100X) (0-5/hpf); Macrocytosis SLIGHT = 6-15 cells (100X) (0-5/hpf); Polychromasia SLIGHT = 2-3 cells (100X) (0-2/hpf)
[2022-07-19 06:09] LABS: Ovalocytes SLIGHT = 2-5 cells (100X) (0-1/hpf)
[2022-07-19 06:15] LABS: Platelet Morphology Comment Appears Decreased
[2022-07-19] MEDS: Mometasone/Formoterol 200/5 60 PUFF INH SCH ×2 (07:20→19:05)
[2022-07-19] MEDS: Pantoprazole 40 MG VIAL IVP SCH (08:17)
[2022-07-19] MEDS: predniSONE 50 MG TAB PO SCH (08:20)
[2022-07-19] MEDS: Morphine 2 MG/ML VIAL SLOW IVP PRN ×4 (09:28→21:19)
[2022-07-19 20:06] LABS: T4 2.1 ug/dL (4.87-11.72)
[2022-07-19] MEDS: Sertraline 100 MG TAB PO SCH (20:25)
[2022-07-19] MEDS: Cholecalciferol 1,000 UNITS (25 MCG) TAB PO SCH (20:25)
[2022-07-19 22:43] LABS: Anion Gap 24 mmol/L (10-20); BUN (Urea Nitrogen) 60 mg/dL (8.4-25.7); Calc. Creatinine Clearance 10 mL/min (70-130); Calcium 8.5 mg/dL (7.8-10.44); Carbon Dioxide 18 mmol/L (23-31); Chloride 95 mmol/L (98-107); Estimated GFR 12; Glucose 163 mg/dL (80-115); Magnesium 2.5 mg/dL (1.6-2.6); Sodium 131 mmol/L (136-145)
[2022-07-19] MEDS ORDERED: Fleet Enema 133 ML BOT PR SCH (23:15)
[2022-07-20] MEDS: Ondansetron PF 4 MG/2 ML Vial IVP PRN ×2 (02:01→12:28)
[2022-07-20 03:31] LABS: #Eosinphils 0.2 10x3/uL (0.0-0.5); #Monocytes 0.7 10x3/uL (0.0-1.1); #Neutrophils 6.8 10x3/uL (1.5-8.4); %Basophils 0.4 % (0.0-2.0); %Eosinophils 2.2 % (0.0-6.0); %Lymphocytes 4.8 % (18.0-47.0); %Monocytes 8.4 % (0.0-10.0); Hemoglobin 10.4 g/dL (13.5-17.5); Mean Corpuscular HGB CONC 32.6 g/dL (32.0-36.0); Mean Corpuscular Hemoglobin 35.7 pg (27.0-33.0); Mean Corpuscular Volume 109.6 fl (81.2-95.1); Mean Platelet Volume 11.8 fl (7.4-10.4); Platelet Count 182 10x3/uL (150-450); Red Blood Cell (RBC) Count 2.91 10x6/uL (4.32-5.72); White Blood Cell (WBC) Count 8.3 10x3/uL (3.5-10.5)
[2022-07-20 03:50] LABS: ALT (SGPT) 702 U/L (8-55); AST (SGOT) 262 U/L (5-34); Albumin 3.5 g/dL (3.4-4.8); Alkaline Phosphatase 153 U/L (40-110); Anion Gap 26 mmol/L (10-20); BUN (Urea Nitrogen) 67 mg/dL (8.4-25.7); Bilirubin, Total 0.8 mg/dL (0.2-1.2); Calc. Creatinine Clearance 9 mL/min (70-130); Calcium 7.8 mg/dL (7.8-10.44); Carbon Dioxide 18 mmol/L (23-31); Chloride 94 mmol/L (98-107); Estimated GFR 11; Globulin 3.1 g/dL (2.4-3.5); Glucose 169 mg/dL (80-115); Protein, Total 6.6 g/dL (5.8-8.1); Sodium 132 mmol/L (136-145)
[2022-07-20 03:51] LABS: Potassium 6.3 mmol/L (3.5-5.1)
[2022-07-20] MEDS ORDERED: Dextrose 50% Abboject 50 ML SYRINGE SLOW IVP PRN (04:16)
[2022-07-20 04:25] LABS: Hypochromia SLIGHT = 6-15 cells (100X) (0-5/hpf); Macrocytosis SLIGHT = 6-15 cells (100X) (0-5/hpf); Polychromasia SLIGHT = 2-3 cells (100X) (0-2/hpf)
[2022-07-20 04:26] LABS: Platelet Morphology Comment Appears Adequate
[2022-07-20] MEDS ORDERED: Insulin Regular 300 UNITS/3 ML VIAL IVP SCH (04:30)
[2022-07-20 07:44] LABS: Vancomycin, Random 13.7 ug/mL (See Comment)
[2022-07-20] MEDS: Pantoprazole 40 MG VIAL IVP SCH (08:28)
[2022-07-20] MEDS: Levothyroxine Sodium 100 MCG TAB PO SCH (08:28)
[2022-07-20] MEDS: predniSONE 50 MG TAB PO SCH (08:30)
[2022-07-20] MEDS: Mometasone/Formoterol 200/5 60 PUFF INH SCH ×2 (08:41→19:10)
[2022-07-20] MEDS: Heparin 10,000 UNITS/ 10 ML VIAL FS PRN (12:20)
[2022-07-20] MEDS: Morphine 2 MG/ML VIAL SLOW IVP PRN ×2 (12:34→18:39)
[2022-07-20 15:10] LABS: Anion Gap 17 mmol/L (10-20); BUN (Urea Nitrogen) 27 mg/dL (8.4-25.7); Calc. Creatinine Clearance 17 mL/min (70-130); Calcium 7.8 mg/dL (7.8-10.44); Carbon Dioxide 22 mmol/L (23-31); Chloride 98 mmol/L (98-107); Estimated GFR 24; Glucose 122 mg/dL (80-115); Potassium 3.9 mmol/L (3.5-5.1); Sodium 133 mmol/L (136-145)
[2022-07-20] MEDS ORDERED: Vancomycin HCl 750 MG in Sodium Chloride 0.9% 250 ML 250 ML IVPB SCH (17:00)
[2022-07-20] MEDS: Sertraline 100 MG TAB PO SCH (21:03)
[2022-07-20] MEDS: Cholecalciferol 1,000 UNITS (25 MCG) TAB PO SCH (21:03)
[2022-07-21 04:28] LABS: ALT (SGPT) 466 U/L (8-55); AST (SGOT) 128 U/L (5-34); Albumin 3.2 g/dL (3.4-4.8); Alkaline Phosphatase 132 U/L (40-110); Anion Gap 20 mmol/L (10-20); BUN (Urea Nitrogen) 40 mg/dL (8.4-25.7); Bilirubin, Total 0.7 mg/dL (0.2-1.2); Calc. Creatinine Clearance 0 mL/min (70-130); Calcium 7.4 mg/dL (7.8-10.44); Carbon Dioxide 18 mmol/L (23-31); Chloride 98 mmol/L (98-107); Estimated GFR 16; Globulin 2.8 g/dL (2.4-3.5); Glucose 126 mg/dL (80-115); Potassium 4.6 mmol/L (3.5-5.1); Sodium 131 mmol/L (136-145)
[2022-07-21 04:52] LABS: #Monocytes 0.5 10x3/uL (0.0-1.1); #Neutrophils 5.8 10x3/uL (1.5-8.4); %Basophils 0.3 % (0.0-2.0); %Lymphocytes 4.3 % (18.0-47.0); %Monocytes 7.2 % (0.0-10.0); %Neutrophils 85.4 % (40.0-75.0); Hemoglobin 9.2 g/dL (13.5-17.5); Mean Corpuscular HGB CONC 31.6 g/dL (32.0-36.0); Mean Corpuscular Hemoglobin 35.7 pg (27.0-33.0); Mean Corpuscular Volume 112.8 fl (81.2-95.1); Mean Platelet Volume 11.5 fl (7.4-10.4); Platelet Count 159 10x3/uL (150-450); RBC Distribution Width 19.3 % (11.5-14.5); Red Blood Cell (RBC) Count 2.58 10x6/uL (4.32-5.72); White Blood Cell (WBC) Count 6.8 10x3/uL (3.5-10.5)
[2022-07-21] MEDS: Levothyroxine Sodium 100 MCG TAB PO SCH (05:52)
[2022-07-21 06:10] LABS: Anisocytosis SLIGHT = 6-15 cells (100X) (0-5/hpf); Macrocytosis SLIGHT = 6-15 cells (100X) (0-5/hpf)
[2022-07-21 06:11] LABS: Hypochromia SLIGHT = 6-15 cells (100X) (0-5/hpf); Platelet Morphology Comment Appears Adequate
[2022-07-21] MEDS: Mometasone/Formoterol 200/5 60 PUFF INH SCH (06:30)
[2022-07-21] MEDS: Pantoprazole 40 MG VIAL IVP SCH (09:19)
[2022-07-21] MEDS: Morphine 2 MG/ML VIAL SLOW IVP PRN (09:19)
[2022-07-21] MEDS: predniSONE 50 MG TAB PO SCH (09:26)
[2022-07-21 18:35] VITALS: BP 152/76; TEMP 97.9
[2022-07-22 16:34] LABS: ANA Symphony (Qualitative) Negative (Negative); ANA Symphony (Quantitative) 0.3 Ratio (< 0.7 Negative); EliA Vaculitis New Method **** NEW METHOD ****; Mitochondrial Ab 0.6 U/mL (<4 Negative); dsDNA IgG Antibody 1.1 IU/mL (<10 Negative)
== END 2022-07-21 17:54 | disposition home or self-care (01) | DRG 871 ==
LOC: SUATTDRO 04:10 → CSHERS 04:10 → CSHICU 09:03 → CSHTELE 07-20 14:03
PROVIDERS: ADMIT Family Medicine; ATTEND Internal Medicine
PROC: 5A1D70Z Performance of Urinary Filtration, Intermittent, Less than 6 Hours Per Day (ICD-10-PCS; principal; 2022-07-16)
PROC: 5A1D70Z Performance of Urinary Filtration, Intermittent, Less than 6 Hours Per Day (ICD-10-PCS; 2022-07-17)
PROC: 5A1D70Z Performance of Urinary Filtration, Intermittent, Less than 6 Hours Per Day (ICD-10-PCS; 2022-07-18)
DX: A41.9 Sepsis, unspecified organism (principal); I21.A1 Myocardial infarction type 2; N18.6 End stage renal disease; N39.0 Urinary tract infection, site not specified; I69.352 Hemiplegia and hemiparesis following cerebral infarction affecting left dominant side; K86.1 Other chronic pancreatitis; J90 Pleural effusion, not elsewhere classified; I50.32 Chronic diastolic (congestive) heart failure; I13.2 Hypertensive heart and chronic kidney disease with heart failure and with stage 5 chronic kidney disease, or end stage renal disease; C34.12 Malignant neoplasm of upper lobe, left bronchus or lung; R33.9 Retention of urine, unspecified; I48.91 Unspecified atrial fibrillation; D63.1 Anemia in chronic kidney disease; E89.0 Postprocedural hypothyroidism; F17.210 Nicotine dependence, cigarettes, uncomplicated; E87.5 Hyperkalemia; I34.0 Nonrheumatic mitral (valve) insufficiency; E78.5 Hyperlipidemia, unspecified; C14.0 Malignant neoplasm of pharynx, unspecified; J44.9 Chronic obstructive pulmonary disease, unspecified; K21.9 Gastro-esophageal reflux disease without esophagitis; N28.1 Cyst of kidney, acquired; I25.10 Atherosclerotic heart disease of native coronary artery without angina pectoris; T45.1X5A Adverse effect of antineoplastic and immunosuppressive drugs, initial encounter; Z20.822 Contact with and (suspected) exposure to COVID-19; Z88.8 Allergy status to other drugs, medicaments and biological substances; Z99.2 Dependence on renal dialysis; Z85.51 Personal history of malignant neoplasm of bladder; Z90.49 Acquired absence of other specified parts of digestive tract; Z99.81 Dependence on supplemental oxygen; Z80.1 Family history of malignant neoplasm of trachea, bronchus and lung; Z79.899 Other long term (current) drug therapy; Z98.890 Other specified postprocedural states; Z79.890 Hormone replacement therapy
CPT/HCPCS: 36415; 36416; 71045; 74177; 76705; 80048; 80053; 80074; 80202; 81003; 81015; 82248; 82550; 82553; 83516; 83605; 83690; 83735; 84436; 84443; 84484; 85025; 85610; 85730; 86015; 86038; 86225; 87040; 87077; 87086; 87149; 87186; 90935; 93005; 93010; 94640; 94664; 94760; 96365; 96367; 96368; 96372; 96375; 96376; C9113; G0257; J0456; J0610; J0696; J1160; J1644; J1650; J1815; J2270; J2405; J2920; J3010; J3370; J3475; J3490; J7050; J7512; J7611; J7999; Q4081; Q9967; S0028

== ENCOUNTER 2022-07-22 09:46 | Inpatient (IN) | payer BC, MEDICARE ==
[2022-07-22] MEDS ORDERED: Lidocaine/Transparent Dressing 1 EACH KIT ONE (10:07)
[2022-07-22] MEDS ORDERED: Morphine 4 MG/ML VIAL ONE (10:31)
[2022-07-22] MEDS ORDERED: Ondansetron PF 4 MG/2 ML Vial ONE (10:31)
[2022-07-22 11:19] LABS: #Basophils 0.1 10x3/uL (0.0-0.2); #Monocytes 1.1 10x3/uL (0.0-1.1); #Neutrophils 7.6 10x3/uL (1.5-8.4); %Basophils 0.7 % (0.0-2.0); %Lymphocytes 7.1 % (18.0-47.0); %Monocytes 11.1 % (0.0-10.0); %Neutrophils 78.7 % (40.0-75.0); Hemoglobin 11.3 g/dL (13.5-17.5); Mean Corpuscular Hemoglobin 36.5 pg (27.0-33.0); Mean Corpuscular Volume 113.9 fl (81.2-95.1); Mean Platelet Volume 11.7 fl (7.4-10.4); Platelet Count 207 10x3/uL (150-450); RBC Distribution Width 20.8 % (11.5-14.5); White Blood Cell (WBC) Count 9.6 10x3/uL (3.5-10.5)
[2022-07-22 11:31] LABS: ALT (SGPT) 352 U/L (8-55); AST (SGOT) 74 U/L (5-34); Albumin 3.6 g/dL (3.4-4.8); Alkaline Phosphatase 155 U/L (40-110); Anion Gap 26 mmol/L (10-20); BUN (Urea Nitrogen) 71 mg/dL (8.4-25.7); Bilirubin, Total 0.9 mg/dL (0.2-1.2); Calc. Creatinine Clearance 0 mL/min (70-130); Calcium 7.6 mg/dL (7.8-10.44); Carbon Dioxide 13 mmol/L (23-31); Chloride 95 mmol/L (98-107); Estimated GFR 10; Globulin 3.6 g/dL (2.4-3.5); Glucose 150 mg/dL (80-115); Magnesium 2.6 mg/dL (1.6-2.6); Protein, Total 7.2 g/dL (5.8-8.1); Sodium 128 mmol/L (136-145)
[2022-07-22] MEDS ORDERED: Amlodipine 5 MG TAB ONE (11:34)
[2022-07-22 11:44] LABS: Anisocytosis SLIGHT = 6-15 cells (100X) (0-5/hpf); Macrocytosis SLIGHT = 6-15 cells (100X) (0-5/hpf); Platelet Morphology Comment Appears Adequate
[2022-07-22 11:50] LABS: Phosphorus 10.2 mg/dL (2.3-4.7)
[2022-07-22] MEDS ORDERED: Linezolid 600 MG TAB PO SCH (12:00)
[2022-07-22] MEDS ORDERED: LOKELMA 10 GM PACKET PO SCH (12:30)
[2022-07-22] MEDS ORDERED: Ondansetron PF 4 MG/2 ML Vial IVP PRN (13:19)
[2022-07-22] MEDS ORDERED: Ondansetron ODT 4 MG TAB PO PRN (13:19)
[2022-07-22 14:38] LABS: Lactic Acid 4.1 mmol/L (0.5-2.2)
[2022-07-22] MEDS ORDERED: Sodium Chloride 0.9% 500 ML IV SCH (14:45)
[2022-07-22] MEDS ORDERED: hydrALAZINE 20 MG/ML VIAL SLOW IVP PRN (16:17)
[2022-07-22] MEDS: Sevelamer 2.4 GM PACKET PO SCH (18:22)
[2022-07-22] MEDS: Heparin 5,000 UNITS/ML VIAL SC SCH (20:45)
[2022-07-22] MEDS: Pantoprazole 40 MG VIAL IVP SCH (20:45)
[2022-07-22] MEDS: Cholecalciferol 1,000 UNITS (25 MCG) TAB PO SCH (20:46)
[2022-07-22] MEDS: Linezolid 600 MG TAB PO SCH (20:46)
[2022-07-22] MEDS: Sertraline 100 MG TAB PO SCH (20:46)
[2022-07-22 21:29] LABS: Lactic Acid 1.8 mmol/L (0.5-2.2)
[2022-07-22 21:33] LABS: Anion Gap 25 mmol/L (10-20); BUN (Urea Nitrogen) 82 mg/dL (8.4-25.7); Calc. Creatinine Clearance 8 mL/min (70-130); Calcium 7.3 mg/dL (7.8-10.44); Carbon Dioxide 17 mmol/L (23-31); Chloride 95 mmol/L (98-107); Estimated GFR 9; Glucose 100 mg/dL (80-115); Potassium 5.6 mmol/L (3.5-5.1); Sodium 131 mmol/L (136-145)
[2022-07-22] MEDS: Morphine 2 MG/ML VIAL SLOW IVP PRN (21:39)
[2022-07-22] MEDS ORDERED: Insulin Regular 300 UNITS/3 ML VIAL IVP SCH (22:30)
[2022-07-22] MEDS ORDERED: Dextrose 50% Abboject 50 ML SYRINGE SLOW IVP SCH (22:45)
[2022-07-23 04:17] LABS: #Basophils 0.1 10x3/uL (0.0-0.2); #Monocytes 0.7 10x3/uL (0.0-1.1); #Neutrophils 5.6 10x3/uL (1.5-8.4); %Basophils 0.8 % (0.0-2.0); %Eosinophils 0.1 % (0.0-6.0); %Monocytes 10.2 % (0.0-10.0); %Neutrophils 76.4 % (40.0-75.0); Hemoglobin 10.8 g/dL (13.5-17.5); Mean Corpuscular HGB CONC 31.9 g/dL (32.0-36.0); Mean Corpuscular Hemoglobin 36.4 pg (27.0-33.0); Mean Corpuscular Volume 114.1 fl (81.2-95.1); Mean Platelet Volume 11.6 fl (7.4-10.4); Platelet Count 142 10x3/uL (150-450); RBC Distribution Width 21.2 % (11.5-14.5); Red Blood Cell (RBC) Count 2.97 10x6/uL (4.32-5.72); White Blood Cell (WBC) Count 7.3 10x3/uL (3.5-10.5)
[2022-07-23 04:27] LABS: ALT (SGPT) 263 U/L (8-55); AST (SGOT) 50 U/L (5-34); Albumin 3.2 g/dL (3.4-4.8); Alkaline Phosphatase 124 U/L (40-110); Anion Gap 23 mmol/L (10-20); BUN (Urea Nitrogen) 89 mg/dL (8.4-25.7); Bilirubin, Total 0.7 mg/dL (0.2-1.2); Calc. Creatinine Clearance 7 mL/min (70-130); Carbon Dioxide 17 mmol/L (23-31); Chloride 96 mmol/L (98-107); Estimated GFR 8; Globulin 2.8 g/dL (2.4-3.5); Glucose 86 mg/dL (80-115); Lipase 12 U/L (8-78); Potassium 5.4 mmol/L (3.5-5.1); Sodium 131 mmol/L (136-145)
[2022-07-23] MEDS: Levothyroxine Sodium 100 MCG TAB PO SCH (06:18)
[2022-07-23] MEDS ORDERED: Heparin 10,000 UNITS/ 10 ML VIAL FS PRN ×2 (09:55→09:57)
[2022-07-23] MEDS: Sevelamer 2.4 GM PACKET PO SCH ×3 (12:06→17:41)
[2022-07-23] MEDS: predniSONE 20 MG TAB PO SCH (12:08)
[2022-07-23] MEDS: Amlodipine 10 MG TAB PO SCH (12:09)
[2022-07-23] MEDS: Pantoprazole 40 MG VIAL IVP SCH ×2 (12:09→20:16)
[2022-07-23] MEDS: Heparin 5,000 UNITS/ML VIAL SC SCH ×2 (12:09→20:16)
[2022-07-23] MEDS: Linezolid 600 MG TAB PO SCH ×2 (12:09→20:15)
[2022-07-23] MEDS: Morphine 2 MG/ML VIAL SLOW IVP PRN ×2 (12:30→18:03)
[2022-07-23] MEDS: Cholecalciferol 1,000 UNITS (25 MCG) TAB PO SCH (20:15)
[2022-07-23] MEDS: Sertraline 100 MG TAB PO SCH (20:16)
[2022-07-24 04:12] LABS: Hemoglobin 10.1 g/dL (13.5-17.5); Mean Corpuscular HGB CONC 31.5 g/dL (32.0-36.0); Mean Corpuscular Hemoglobin 36.2 pg (27.0-33.0); Mean Corpuscular Volume 115.1 fl (81.2-95.1); Mean Platelet Volume 11.5 fl (7.4-10.4); Platelet Count 136 10x3/uL (150-450); RBC Distribution Width 21.3 % (11.5-14.5); Red Blood Cell (RBC) Count 2.79 10x6/uL (4.32-5.72); White Blood Cell (WBC) Count 6.4 10x3/uL (3.5-10.5)
[2022-07-24 04:50] LABS: MDiff Complete? YES
[2022-07-24 04:55] LABS: Band 11 % (5-11); Lymphocytes 1 % (21-51); Monocytes 4 % (0-10); Myelocyte 2 % (0-0); Neutrophil 82 % (42-75)
[2022-07-24 04:57] LABS: Macrocytosis MODERATE=16-30 cells (100X) (0-5/hpf); Platelet Morphology Comment Appears Adequate
[2022-07-24] MEDS: Levothyroxine Sodium 100 MCG TAB PO SCH (05:32)
[2022-07-24 06:16] LABS: SARS-CoV-2 NAA Rapid Test Not Detected (NotDetected)
[2022-07-24] MEDS: Heparin 5,000 UNITS/ML VIAL SC SCH ×2 (08:41→20:55)
[2022-07-24] MEDS: Amlodipine 10 MG TAB PO SCH (08:41)
[2022-07-24] MEDS: Linezolid 600 MG TAB PO SCH ×2 (08:41→20:54)
[2022-07-24] MEDS: Pantoprazole 40 MG VIAL IVP SCH ×2 (08:41→20:55)
[2022-07-24] MEDS: predniSONE 20 MG TAB PO SCH (08:41)
[2022-07-24] MEDS: Sevelamer 2.4 GM PACKET PO SCH ×3 (08:41→18:02)
[2022-07-24] MEDS: Morphine 2 MG/ML VIAL SLOW IVP PRN ×4 (08:42→21:01)
[2022-07-24] MEDS: Pancrelipase DR 12,000 1 CAP PO SCH (18:02)
[2022-07-24] MEDS: Cholecalciferol 1,000 UNITS (25 MCG) TAB PO SCH (20:54)
[2022-07-24] MEDS: Sertraline 100 MG TAB PO SCH (20:54)
[2022-07-25 04:53] LABS: #Monocytes 0.7 10x3/uL (0.0-1.1); #Neutrophils 8.5 10x3/uL (1.5-8.4); %Basophils 0.2 % (0.0-2.0); %Lymphocytes 2.9 % (18.0-47.0); %Monocytes 7.7 % (0.0-10.0); %Neutrophils 88.2 % (40.0-75.0); Hemoglobin 9.9 g/dL (13.5-17.5); Mean Corpuscular HGB CONC 31.8 g/dL (32.0-36.0); Mean Corpuscular Hemoglobin 36.5 pg (27.0-33.0); Mean Platelet Volume 11.2 fl (7.4-10.4); Platelet Count 166 10x3/uL (150-450); RBC Distribution Width 21.2 % (11.5-14.5); Red Blood Cell (RBC) Count 2.71 10x6/uL (4.32-5.72); White Blood Cell (WBC) Count 9.7 10x3/uL (3.5-10.5)
[2022-07-25 04:54] LABS: Mean Corpuscular Volume 114.8 fl (81.2-95.1)
[2022-07-25 05:25] LABS: Anion Gap 22 mmol/L (10-20); BUN (Urea Nitrogen) 68 mg/dL (8.4-25.7); Calc. Creatinine Clearance 8 mL/min (70-130); Carbon Dioxide 18 mmol/L (23-31); Chloride 94 mmol/L (98-107); Estimated GFR 9; Glucose 136 mg/dL (80-115); Potassium 5.9 mmol/L (3.5-5.1); Sodium 128 mmol/L (136-145)
[2022-07-25 05:30] LABS: Calcium 6.8 mg/dL (7.8-10.44)
[2022-07-25] MEDS ORDERED: Calcium Gluc 4.6 MEQ/10 ML (100 MG/ML) SLOW IVP SCH (06:00)
[2022-07-25] MEDS: Levothyroxine Sodium 100 MCG TAB PO SCH (06:37)
[2022-07-25 06:47] VITALS: BMI 18.4
[2022-07-25] MEDS: Pancrelipase DR 12,000 1 CAP PO SCH ×2 (09:03→13:38)
[2022-07-25] MEDS: Amlodipine 10 MG TAB PO SCH (09:03)
[2022-07-25] MEDS: Linezolid 600 MG TAB PO SCH (09:03)
[2022-07-25] MEDS: predniSONE 20 MG TAB PO SCH (09:05)
[2022-07-25] MEDS: Heparin 5,000 UNITS/ML VIAL SC SCH (09:05)
[2022-07-25] MEDS: Morphine 2 MG/ML VIAL SLOW IVP PRN (09:05)
[2022-07-25] MEDS: Pantoprazole 40 MG VIAL IVP SCH (09:05)
[2022-07-25] MEDS: Sevelamer 2.4 GM PACKET PO SCH ×2 (09:06→13:38)
[2022-07-25] MEDS ORDERED: Calcium Acetate 667 MG CAP PO SCH (12:00)
[2022-07-25] MEDS ORDERED: HYDROcodone/Acetaminophen 7.5/325 mg Tablet PO PRN (15:18)
[2022-07-25] MEDS ORDERED: oxyCODONE 5 MG TAB PO PRN (15:22)
[2022-07-25 16:43] VITALS: BP 159/74; TEMP 98
== END 2022-07-25 17:32 | disposition home or self-care (01) | DRG 871 ==
LOC: CSHERS 09:46 → CSHTELE 12:22 → OBSVTOIN 13:00
PROVIDERS: ADMIT Internal Medicine; ATTEND Internal Medicine
PROC: 5A1D70Z Performance of Urinary Filtration, Intermittent, Less than 6 Hours Per Day (ICD-10-PCS; principal; 2022-07-23)
DX: A41.9 Sepsis, unspecified organism (principal); I21.A1 Myocardial infarction type 2; N18.6 End stage renal disease; E87.1 Hypo-osmolality and hyponatremia; K86.1 Other chronic pancreatitis; J90 Pleural effusion, not elsewhere classified; Z68.1 Body mass index [BMI] 19.9 or less, adult; N39.0 Urinary tract infection, site not specified; I69.352 Hemiplegia and hemiparesis following cerebral infarction affecting left dominant side; I50.32 Chronic diastolic (congestive) heart failure; I13.2 Hypertensive heart and chronic kidney disease with heart failure and with stage 5 chronic kidney disease, or end stage renal disease; C34.12 Malignant neoplasm of upper lobe, left bronchus or lung; K80.20 Calculus of gallbladder without cholecystitis without obstruction; R10.9 Unspecified abdominal pain; Z20.822 Contact with and (suspected) exposure to COVID-19; E87.5 Hyperkalemia; E83.39 Other disorders of phosphorus metabolism; K27.9 Peptic ulcer, site unspecified, unspecified as acute or chronic, without hemorrhage or perforation; K75.9 Inflammatory liver disease, unspecified; D63.1 Anemia in chronic kidney disease; E78.5 Hyperlipidemia, unspecified; I34.0 Nonrheumatic mitral (valve) insufficiency; J44.9 Chronic obstructive pulmonary disease, unspecified; K21.9 Gastro-esophageal reflux disease without esophagitis; E89.0 Postprocedural hypothyroidism; E83.51 Hypocalcemia; R00.1 Bradycardia, unspecified; I48.91 Unspecified atrial fibrillation; I27.20 Pulmonary hypertension, unspecified; F17.210 Nicotine dependence, cigarettes, uncomplicated; R33.9 Retention of urine, unspecified; C14.0 Malignant neoplasm of pharynx, unspecified; N28.1 Cyst of kidney, acquired; I25.10 Atherosclerotic heart disease of native coronary artery without angina pectoris; T45.1X5A Adverse effect of antineoplastic and immunosuppressive drugs, initial encounter; Z71.6 Tobacco abuse counseling; R63.6 Underweight; Z85.51 Personal history of malignant neoplasm of bladder; Z99.2 Dependence on renal dialysis; Z87.440 Personal history of urinary (tract) infections; Z85.850 Personal history of malignant neoplasm of thyroid; Z79.890 Hormone replacement therapy; Z79.899 Other long term (current) drug therapy; Z79.52 Long term (current) use of systemic steroids; Z88.7 Allergy status to serum and vaccine; Z80.1 Family history of malignant neoplasm of trachea, bronchus and lung; Z88.8 Allergy status to other drugs, medicaments and biological substances; Z90.49 Acquired absence of other specified parts of digestive tract; Z99.81 Dependence on supplemental oxygen; Z98.890 Other specified postprocedural states
CPT/HCPCS: 36415; 36416; 71045; 74177; 76705; 80048; 80053; 80074; 80202; 81003; 81015; 82248; 82550; 82553; 83516; 83605; 83690; 83735; 84100; 84436; 84443; 84484; 85025; 85610; 85730; 86015; 86038; 86225; 87040; 87077; 87086; 87149; 87186; 90935; 93005; 93010; 94640; 94664; 94760; 96365; 96367; 96368; 96372; 96375; 96376; C9113; G0257; G0378; J0456; J0610; J0696; J1160; J1644; J1650; J1815; J2270; J2405; J2920; J3010; J3370; J3475; J3490; J7030; J7050; J7512; J7611; J7999; Q4081; Q9967; S0028; U0002

== ENCOUNTER 2022-08-01 13:20 | Inpatient (IN) | payer BC, MEDICARE ==
[2022-08-01] MEDS ORDERED: Metoprolol Tartrate 5 MG/5 ML VIAL ONE ×2 (14:12→15:21)
[2022-08-01] MEDS ORDERED: Apixaban 5 MG TAB ONE (14:12)
[2022-08-01 14:21] LABS: #Monocytes 0.6 10x3/uL (0.0-1.1); #Neutrophils 5.6 10x3/uL (1.5-8.4); %Basophils 0.1 % (0.0-2.0); %Eosinophils 0.3 % (0.0-6.0); %Lymphocytes 5.2 % (18.0-47.0); %Monocytes 8.5 % (0.0-10.0); %Neutrophils 84.6 % (40.0-75.0); Hemoglobin 9.8 g/dL (13.5-17.5); Mean Corpuscular HGB CONC 32.8 g/dL (32.0-36.0); Mean Corpuscular Hemoglobin 36.4 pg (27.0-33.0); Mean Corpuscular Volume 111.2 fl (81.2-95.1); Platelet Count 81 10x3/uL (150-450); RBC Distribution Width 18.6 % (11.5-14.5); Red Blood Cell (RBC) Count 2.69 10x6/uL (4.32-5.72); White Blood Cell (WBC) Count 6.7 10x3/uL (3.5-10.5)
[2022-08-01 14:32] LABS: ALT (SGPT) 45 U/L (8-55); AST (SGOT) 25 U/L (5-34); Albumin 3.2 g/dL (3.4-4.8); Alkaline Phosphatase 82 U/L (40-110); Anion Gap 19 mmol/L (10-20); BUN (Urea Nitrogen) 28 mg/dL (8.4-25.7); Bilirubin, Total 0.8 mg/dL (0.2-1.2); Calc. Creatinine Clearance 0 mL/min (70-130); Calcium 8.1 mg/dL (7.8-10.44); Carbon Dioxide 27 mmol/L (23-31); Chloride 96 mmol/L (98-107); Estimated GFR 18; Globulin 2.8 g/dL (2.4-3.5); Glucose 79 mg/dL (80-115); Lipase 7 U/L (8-78); Magnesium 1.9 mg/dL (1.6-2.6); Potassium 3.6 mmol/L (3.5-5.1); Sodium 138 mmol/L (136-145)
[2022-08-01 14:57] LABS: CKMB 3.8 ng/mL (0-6.6)
[2022-08-01 15:11] LABS: Anisocytosis SLIGHT = 6-15 cells (100X) (0-5/hpf); Hypochromia SLIGHT = 6-15 cells (100X) (0-5/hpf); Macrocytosis SLIGHT = 6-15 cells (100X) (0-5/hpf); Platelet Morphology Comment Appears Decreased
[2022-08-01] MEDS ORDERED: Acetaminophen 325 MG TAB PO PRN (15:38)
[2022-08-01] MEDS ORDERED: Acetaminophen 650 MG Suppository PR PRN (15:38)
[2022-08-01] MEDS ORDERED: Ondansetron PF 4 MG/2 ML Vial IVP PRN (15:38)
[2022-08-01] MEDS ORDERED: Ondansetron ODT 4 MG TAB PO PRN (15:38)
[2022-08-01] MEDS ORDERED: Electrolyte Replacement Protocol 1 EACH FS SCH (15:45)
[2022-08-01] MEDS ORDERED: Potassium Chloride 20 MEQ TAB PO SCH (15:45)
[2022-08-01] MEDS ORDERED: Magnesium 2 GM/50 ML BAG (IN WATER) ONE (16:02)
[2022-08-01 16:18] LABS: Free T4 (Free Thyroxine) Less than 0.40 ng/dL (0.70-1.48)
[2022-08-01 16:35] LABS: SARS-CoV-2 NAA Rapid Test Not Detected (NotDetected)
[2022-08-01] MEDS ORDERED: Metoprolol Tartrate 5 MG/5 ML VIAL IVP SCH (16:45)
[2022-08-01 17:15] VITALS: BMI 16.3
[2022-08-01] MEDS: Apixaban 2.5 MG TAB PO SCH (20:36)
[2022-08-01 20:51] LABS: Troponin I 0.495 ng/mL (< 0.028)
[2022-08-02] MEDS ORDERED: Metoprolol Tartrate 25 MG TAB PO SCH ×3 (00:15→11:00)
[2022-08-02 04:50] LABS: #Monocytes 0.6 10x3/uL (0.0-1.1); #Neutrophils 4.6 10x3/uL (1.5-8.4); %Basophils 0.2 % (0.0-2.0); %Eosinophils 0.5 % (0.0-6.0); %Lymphocytes 8.6 % (18.0-47.0); %Monocytes 10.1 % (0.0-10.0); %Neutrophils 79.9 % (40.0-75.0); Hemoglobin 8.9 g/dL (13.5-17.5); Mean Corpuscular Hemoglobin 35.6 pg (27.0-33.0); Mean Corpuscular Volume 114.8 fl (81.2-95.1); Mean Platelet Volume 11.8 fl (7.4-10.4); Platelet Count 71 10x3/uL (150-450); RBC Distribution Width 18.6 % (11.5-14.5); White Blood Cell (WBC) Count 5.7 10x3/uL (3.5-10.5)
[2022-08-02 04:52] LABS: Anion Gap 18 mmol/L (10-20); BUN (Urea Nitrogen) 36 mg/dL (8.4-25.7); Calc. Creatinine Clearance 10 mL/min (70-130); Calcium 7.4 mg/dL (7.8-10.44); Carbon Dioxide 25 mmol/L (23-31); Chloride 99 mmol/L (98-107); Estimated GFR 14; Glucose 80 mg/dL (80-115); Magnesium 2.5 mg/dL (1.6-2.6); Potassium 4.2 mmol/L (3.5-5.1); Sodium 138 mmol/L (136-145)
[2022-08-02 05:44] LABS: Anisocytosis SLIGHT = 6-15 cells (100X) (0-5/hpf); Hypochromia SLIGHT = 6-15 cells (100X) (0-5/hpf); Macrocytosis SLIGHT = 6-15 cells (100X) (0-5/hpf); Ovalocytes SLIGHT = 2-5 cells (100X) (0-1/hpf); Schistocytes SLIGHT = 2-5 cells (100X) (0-1/hpf)
[2022-08-02 05:46] LABS: Platelet Morphology Comment Appears Decreased
[2022-08-02] MEDS ORDERED: Levothyroxine Sodium 75 MCG TAB PO SCH (08:00)
[2022-08-02] MEDS: Apixaban 2.5 MG TAB PO SCH ×2 (09:19→20:26)
[2022-08-02] MEDS: oxyCODONE 5 MG TAB PO PRN ×2 (13:20→20:25)
[2022-08-02] MEDS ORDERED: Nitroglycerin 0.4 MG TAB (25 Tab Bottle) SL SCH (15:15)
[2022-08-02] MEDS ORDERED: Lidocaine 2% Viscous Solution 10 ML, Aluminum & Magnesium Hydroxide 30 ML SSW SCH (15:30)
[2022-08-02 16:05] LABS: Troponin I 0.385 ng/mL (< 0.028)
[2022-08-02 19:00] LABS: Troponin I 0.376 ng/mL (< 0.028)
[2022-08-02] MEDS: Metoprolol Tartrate 50 MG TAB PO SCH (20:26)
[2022-08-02 21:19] LABS: Troponin I 0.407 ng/mL (< 0.028)
[2022-08-02] MEDS ORDERED: Lorazepam 2 MG/ML VIAL ONE (21:53)
[2022-08-02] MEDS ORDERED: Lorazepam 2 MG/ML VIAL SLOW IVP SCH (22:00)
[2022-08-03 05:16] LABS: Anion Gap 20 mmol/L (10-20); BUN (Urea Nitrogen) 56 mg/dL (8.4-25.7); Calc. Creatinine Clearance 8 mL/min (70-130); Calcium 7.1 mg/dL (7.8-10.44); Carbon Dioxide 22 mmol/L (23-31); Chloride 99 mmol/L (98-107); Estimated GFR 10; Glucose 102 mg/dL (80-115); Magnesium 2.5 mg/dL (1.6-2.6); Potassium 4.9 mmol/L (3.5-5.1); Sodium 136 mmol/L (136-145)
[2022-08-03 05:24] LABS: #Monocytes 0.6 10x3/uL (0.0-1.1); #Neutrophils 5.3 10x3/uL (1.5-8.4); %Basophils 0.2 % (0.0-2.0); %Eosinophils 0.3 % (0.0-6.0); %Lymphocytes 9.2 % (18.0-47.0); %Monocytes 8.4 % (0.0-10.0); %Neutrophils 81.1 % (40.0-75.0); Hemoglobin 8.1 g/dL (13.5-17.5); Mean Corpuscular HGB CONC 31.9 g/dL (32.0-36.0); Mean Corpuscular Hemoglobin 36.2 pg (27.0-33.0); Mean Corpuscular Volume 113.4 fl (81.2-95.1); Mean Platelet Volume 12.4 fl (7.4-10.4); Platelet Count 79 10x3/uL (150-450); RBC Distribution Width 18.3 % (11.5-14.5); Red Blood Cell (RBC) Count 2.24 10x6/uL (4.32-5.72); White Blood Cell (WBC) Count 6.5 10x3/uL (3.5-10.5)
[2022-08-03] MEDS: Levothyroxine Sodium 100 MCG TAB PO SCH (05:51)
[2022-08-03] MEDS ORDERED: Levothyroxine Sodium 75 MCG TAB PO SCH (06:00)
[2022-08-03 06:23] LABS: Anisocytosis SLIGHT = 6-15 cells (100X) (0-5/hpf); Hypochromia SLIGHT = 6-15 cells (100X) (0-5/hpf); Macrocytosis SLIGHT = 6-15 cells (100X) (0-5/hpf); Microcytosis SLIGHT = 6-15 cells (100X) (0-5/hpf)
[2022-08-03 06:24] LABS: Ovalocytes SLIGHT = 2-5 cells (100X) (0-1/hpf); Platelet Morphology Comment Appears Decreased
[2022-08-03] MEDS ORDERED: EPOETIN ALFA-EPBX (ESRD) 4,000 UNIT/ML VIAL SC SCH (08:00)
[2022-08-03] MEDS: Metoprolol Tartrate 50 MG TAB PO SCH ×2 (08:27→22:47)
[2022-08-03] MEDS: Apixaban 2.5 MG TAB PO SCH ×2 (08:28→22:47)
[2022-08-03] MEDS: oxyCODONE 5 MG TAB PO PRN ×2 (08:28→16:15)
[2022-08-03] MEDS ORDERED: Digoxin 0.5 MG/2 ML AMP SLOW IVP SCH (12:00)
[2022-08-03] MEDS ORDERED: Heparin 10,000 UNITS/ 10 ML VIAL SLOW IVP PRN (19:02)
[2022-08-04 04:38] LABS: Anion Gap 19 mmol/L (10-20); BUN (Urea Nitrogen) 27 mg/dL (8.4-25.7); Calc. Creatinine Clearance 14 mL/min (70-130); Calcium 7.6 mg/dL (7.8-10.44); Carbon Dioxide 24 mmol/L (23-31); Chloride 101 mmol/L (98-107); Estimated GFR 20; Glucose 83 mg/dL (80-115); Phosphorus 4.6 mg/dL (2.3-4.7); Sodium 140 mmol/L (136-145)
[2022-08-04 04:42] LABS: #Monocytes 0.3 10x3/uL (0.0-1.1); #Neutrophils 4.7 10x3/uL (1.5-8.4); %Basophils 0.4 % (0.0-2.0); %Eosinophils 0.5 % (0.0-6.0); %Lymphocytes 8.8 % (18.0-47.0); %Monocytes 5.6 % (0.0-10.0); %Neutrophils 83.5 % (40.0-75.0); Hemoglobin 8.4 g/dL (13.5-17.5); Mean Corpuscular HGB CONC 31.5 g/dL (32.0-36.0); Mean Corpuscular Hemoglobin 36.1 pg (27.0-33.0); Mean Corpuscular Volume 114.6 fl (81.2-95.1); Mean Platelet Volume 11.2 fl (7.4-10.4); Platelet Count 72 10x3/uL (150-450); Red Blood Cell (RBC) Count 2.33 10x6/uL (4.32-5.72); White Blood Cell (WBC) Count 5.7 10x3/uL (3.5-10.5)
[2022-08-04] MEDS: Levothyroxine Sodium 100 MCG TAB PO SCH (05:31)
[2022-08-04 06:39] LABS: Hypochromia SLIGHT = 6-15 cells (100X) (0-5/hpf); Macrocytosis SLIGHT = 6-15 cells (100X) (0-5/hpf)
[2022-08-04 06:40] LABS: Large Platelets SLIGHT; Ovalocytes SLIGHT = 2-5 cells (100X) (0-1/hpf); Platelet Morphology Comment Appears Decreased; Schistocytes SLIGHT = 2-5 cells (100X) (0-1/hpf)
[2022-08-04] MEDS: Apixaban 2.5 MG TAB PO SCH (08:22)
[2022-08-04] MEDS: Metoprolol Tartrate 50 MG TAB PO SCH (08:22)
[2022-08-04] MEDS: oxyCODONE 5 MG TAB PO PRN (08:22)
[2022-08-04] MEDS ORDERED: Amlodipine 5 MG TAB PO SCH (09:45)
[2022-08-04] MEDS ORDERED: buPROPion 75 MG TAB PO SCH ×3 (09:45→21:00)
[2022-08-04 12:27] VITALS: BP 153/71; TEMP 98.2
[2022-08-05] MEDS ORDERED: Amlodipine 5 MG TAB PO SCH (09:00)
== END 2022-08-04 13:07 | disposition home or self-care (01) | DRG 280 ==
LOC: CSHERS 13:20 → CSHTELE 15:55
PROVIDERS: ADMIT Family Medicine; ATTEND Family Medicine
PROC: 5A1D70Z Performance of Urinary Filtration, Intermittent, Less than 6 Hours Per Day (ICD-10-PCS; principal; 2022-08-01)
PROC: 5A1D70Z Performance of Urinary Filtration, Intermittent, Less than 6 Hours Per Day (ICD-10-PCS; 2022-08-03)
DX: I48.91 Unspecified atrial fibrillation (principal); N18.6 End stage renal disease; I21.A1 Myocardial infarction type 2; C34.90 Malignant neoplasm of unspecified part of unspecified bronchus or lung; I12.0 Hypertensive chronic kidney disease with stage 5 chronic kidney disease or end stage renal disease; E78.5 Hyperlipidemia, unspecified; F17.210 Nicotine dependence, cigarettes, uncomplicated; E03.9 Hypothyroidism, unspecified; K21.9 Gastro-esophageal reflux disease without esophagitis; J44.9 Chronic obstructive pulmonary disease, unspecified; C14.0 Malignant neoplasm of pharynx, unspecified; C67.9 Malignant neoplasm of bladder, unspecified; I25.10 Atherosclerotic heart disease of native coronary artery without angina pectoris; I34.0 Nonrheumatic mitral (valve) insufficiency; F41.9 Anxiety disorder, unspecified; D69.6 Thrombocytopenia, unspecified; Z20.822 Contact with and (suspected) exposure to COVID-19; Z88.8 Allergy status to other drugs, medicaments and biological substances; Z98.890 Other specified postprocedural states; Z95.828 Presence of other vascular implants and grafts; Z99.2 Dependence on renal dialysis; Z79.890 Hormone replacement therapy; Z79.899 Other long term (current) drug therapy; Z80.1 Family history of malignant neoplasm of trachea, bronchus and lung
CPT/HCPCS: 36415; 71045; 80048; 80053; 82553; 83690; 83735; 83970; 84100; 84439; 84443; 84481; 84484; 85025; 90935; 93005; 93010; 93306; 94760; 96361; 96365; 96375; 96376; G0257; J1160; J1644; J2060; J3475; Q5105

== ENCOUNTER 2022-08-31 09:26 | Emergency (ER) | payer BC, MEDICARE ==
[2022-08-31 10:21] LABS: Anion Gap 15 mmol/L (10-20); BUN (Urea Nitrogen) 13 mg/dL (8.4-25.7); Calc. Creatinine Clearance 0 mL/min (70-130); Calcium 8.5 mg/dL (7.8-10.44); Carbon Dioxide 31 mmol/L (23-31); Chloride 95 mmol/L (98-107); Estimated GFR 38; Glucose 88 mg/dL (80-115); Sodium 138 mmol/L (136-145)
[2022-08-31 10:22] LABS: #Monocytes 0.6 10x3/uL (0.0-1.1); #Neutrophils 3.4 10x3/uL (1.5-8.4); %Basophils 0.4 % (0.0-2.0); %Eosinophils 0.6 % (0.0-6.0); %Lymphocytes 20.2 % (18.0-47.0); %Monocytes 11.5 % (0.0-10.0); %Neutrophils 65.6 % (40.0-75.0); Hemoglobin 6.3 g/dL (13.5-17.5); Mean Corpuscular HGB CONC 30.4 g/dL (32.0-36.0); Mean Corpuscular Hemoglobin 33.3 pg (27.0-33.0); Mean Corpuscular Volume 109.5 fl (81.2-95.1); Mean Platelet Volume 10.8 fl (7.4-10.4); Platelet Count 142 10x3/uL (150-450); RBC Distribution Width 16.3 % (11.5-14.5); Red Blood Cell (RBC) Count 1.89 10x6/uL (4.32-5.72); White Blood Cell (WBC) Count 5.2 10x3/uL (3.5-10.5)
[2022-08-31 10:48] LABS: INR-International Normal Ratio 1.1; PTT 90.5 sec (22.0-33.0); Prothrombin Time 11.9 sec (9.5-12.1)
== END 2022-08-31 11:40 | disposition home or self-care (01) ==
LOC: CSHERS 09:26
DX: D64.9 Anemia, unspecified (principal); I12.0 Hypertensive chronic kidney disease with stage 5 chronic kidney disease or end stage renal disease; N18.6 End stage renal disease; Z99.2 Dependence on renal dialysis; K21.9 Gastro-esophageal reflux disease without esophagitis; E78.5 Hyperlipidemia, unspecified; F17.210 Nicotine dependence, cigarettes, uncomplicated
CPT/HCPCS: 36430; 80048; 85025; 85610; 85730; 86850; 86900; 86901; 99284; J1642; P9016

== ENCOUNTER 2022-09-12 09:42 | Inpatient (IN) | payer BC, MEDICARE ==
[2022-09-12] MEDS ORDERED: Metoprolol Tartrate 5 MG/5 ML VIAL ONE ×2 (10:12→12:09)
[2022-09-12] MEDS ORDERED: Morphine 4 MG/ML VIAL ONE (10:18)
[2022-09-12 10:23] LABS: #Basophils 0.1 10x3/uL (0.0-0.2); #Eosinphils 0.1 10x3/uL (0.0-0.5); #Monocytes 0.5 10x3/uL (0.0-1.1); #Neutrophils 4.7 10x3/uL (1.5-8.4); %Basophils 0.9 % (0.0-2.0); %Eosinophils 1.1 % (0.0-6.0); %Lymphocytes 18.6 % (18.0-47.0); %Monocytes 7.5 % (0.0-10.0); %Neutrophils 71.1 % (40.0-75.0); Hemoglobin 7.6 g/dL (13.5-17.5); Mean Corpuscular HGB CONC 30.2 g/dL (32.0-36.0); Mean Corpuscular Hemoglobin 30.3 pg (27.0-33.0); Mean Corpuscular Volume 100.4 fl (81.2-95.1); Mean Platelet Volume 10.8 fl (7.4-10.4); Platelet Count 167 10x3/uL (150-450); RBC Distribution Width 18.3 % (11.5-14.5); Red Blood Cell (RBC) Count 2.51 10x6/uL (4.32-5.72); White Blood Cell (WBC) Count 6.6 10x3/uL (3.5-10.5)
[2022-09-12 10:32] LABS: ALT (SGPT) 13 U/L (8-55); AST (SGOT) 19 U/L (5-34); Alkaline Phosphatase 88 U/L (40-110); Anion Gap 16 mmol/L (10-20); BUN (Urea Nitrogen) 20 mg/dL (8.4-25.7); Bilirubin, Total 0.6 mg/dL (0.2-1.2); Calc. Creatinine Clearance 0 mL/min (70-130); Calcium 8.5 mg/dL (7.8-10.44); Carbon Dioxide 28 mmol/L (23-31); Chloride 96 mmol/L (98-107); Estimated GFR 32; Globulin 3.9 g/dL (2.4-3.5); Glucose 86 mg/dL (80-115); Magnesium 1.8 mg/dL (1.6-2.6); Potassium 3.4 mmol/L (3.5-5.1); Protein, Total 6.9 g/dL (5.8-8.1); Sodium 137 mmol/L (136-145)
[2022-09-12] MEDS ORDERED: Acetaminophen 325 MG TAB PO PRN (11:56)
[2022-09-12] MEDS ORDERED: Aspirin Chewable 81 MG TAB ONE (12:09)
[2022-09-12] MEDS ORDERED: Diltiazem 125 MG/25 ML ONE (13:45)
[2022-09-12 13:55] LABS: Troponin I 0.387 ng/mL (< 0.028)
[2022-09-12 16:47] LABS: Troponin I 0.383 ng/mL (< 0.028)
[2022-09-12] MEDS ORDERED: Digoxin 0.5 MG/2 ML AMP SLOW IVP SCH (19:30)
[2022-09-12 19:31] LABS: SARS-CoV-2 NAA Rapid Test Not Detected (NotDetected)
[2022-09-12] MEDS ORDERED: Morphine 2 MG/ML VIAL SLOW IVP SCH (19:45)
[2022-09-12] MEDS ORDERED: Potassium Chloride 20 MEQ TAB PO SCH (20:30)
[2022-09-12] MEDS: Nicotine 14 MG PATCH TD SCH (20:49)
[2022-09-12] MEDS: Diltiazem 125 MG in Sodium Chloride 0.9% 100 ML IVPB SCH (21:12)
[2022-09-13] MEDS ORDERED: Digoxin 0.5 MG/2 ML AMP SLOW IVP SCH (01:00)
[2022-09-13] MEDS: Morphine 2 MG/ML VIAL SLOW IVP PRN ×4 (01:17→23:15)
[2022-09-13 04:36] LABS: #Basophils 0.1 10x3/uL (0.0-0.2); #Eosinphils 0.1 10x3/uL (0.0-0.5); #Monocytes 0.5 10x3/uL (0.0-1.1); #Neutrophils 5.3 10x3/uL (1.5-8.4); %Eosinophils 0.7 % (0.0-6.0); %Lymphocytes 16.7 % (18.0-47.0); %Monocytes 6.8 % (0.0-10.0); %Neutrophils 74.2 % (40.0-75.0); Mean Corpuscular HGB CONC 30.2 g/dL (32.0-36.0); Mean Corpuscular Hemoglobin 30.5 pg (27.0-33.0); Mean Corpuscular Volume 101.1 fl (81.2-95.1); Platelet Count 175 10x3/uL (150-450); RBC Distribution Width 18.3 % (11.5-14.5); Red Blood Cell (RBC) Count 2.62 10x6/uL (4.32-5.72); White Blood Cell (WBC) Count 7.2 10x3/uL (3.5-10.5)
[2022-09-13 05:45] LABS: Anion Gap 19 mmol/L (10-20); BUN (Urea Nitrogen) 33 mg/dL (8.4-25.7); Calc. Creatinine Clearance 14 mL/min (70-130); Carbon Dioxide 24 mmol/L (23-31); Chloride 99 mmol/L (98-107); Estimated GFR 18; Glucose 74 mg/dL (80-115); Potassium 5.3 mmol/L (3.5-5.1); Sodium 137 mmol/L (136-145)
[2022-09-13] MEDS ORDERED: EPOETIN ALFA-EPBX (ESRD) 4,000 UNIT/ML VIAL SC SCH (08:00)
[2022-09-13 09:38] LABS: Magnesium 1.9 mg/dL (1.6-2.6)
[2022-09-13] MEDS: Calcium Acetate 667 MG CAP PO SCH ×3 (10:27→16:46)
[2022-09-13] MEDS ORDERED: Magnesium 2 GM/50 ML(in water) 2 GM in Premix Bag 1 BAG IVPB SCH (11:00)
[2022-09-13] MEDS: Nicotine 14 MG PATCH TD SCH (13:21)
[2022-09-13] MEDS: Docusate Sodium 100 MG/10 ML UDCUP PO SCH (20:39)
[2022-09-14] MEDS: oxyCODONE 5 MG TAB PO PRN ×2 (04:28→17:56)
[2022-09-14 04:55] LABS: Anion Gap 20 mmol/L (10-20); BUN (Urea Nitrogen) 44 mg/dL (8.4-25.7); Calc. Creatinine Clearance 11 mL/min (70-130); Calcium 8.2 mg/dL (7.8-10.44); Carbon Dioxide 26 mmol/L (23-31); Chloride 96 mmol/L (98-107); Estimated GFR 13; Glucose 89 mg/dL (80-115); Sodium 136 mmol/L (136-145)
[2022-09-14 04:58] LABS: Potassium 6.3 mmol/L (3.5-5.1)
[2022-09-14 05:02] LABS: #Basophils 0.1 10x3/uL (0.0-0.2); #Eosinphils 0.3 10x3/uL (0.0-0.5); #Monocytes 0.6 10x3/uL (0.0-1.1); %Eosinophils 3.8 % (0.0-6.0); %Lymphocytes 17.5 % (18.0-47.0); %Monocytes 8.6 % (0.0-10.0); %Neutrophils 68.7 % (40.0-75.0); Hemoglobin 7.3 g/dL (13.5-17.5); Mean Corpuscular HGB CONC 30.4 g/dL (32.0-36.0); Mean Corpuscular Hemoglobin 30.7 pg (27.0-33.0); Mean Corpuscular Volume 100.8 fl (81.2-95.1); Mean Platelet Volume 10.6 fl (7.4-10.4); Platelet Count 190 10x3/uL (150-450); RBC Distribution Width 18.4 % (11.5-14.5); Red Blood Cell (RBC) Count 2.38 10x6/uL (4.32-5.72); White Blood Cell (WBC) Count 7.3 10x3/uL (3.5-10.5)
[2022-09-14] MEDS ORDERED: Calcium Gluc 4.6 MEQ/10 ML (100 MG/ML) SLOW IVP SCH (05:30)
[2022-09-14] MEDS: Calcium Acetate 667 MG CAP PO SCH ×3 (08:25→17:56)
[2022-09-14] MEDS: Morphine 2 MG/ML VIAL SLOW IVP PRN ×2 (08:43→21:39)
[2022-09-14] MEDS ORDERED: Heparin 10,000 UNITS/ 10 ML VIAL SLOW IVP PRN (08:52)
[2022-09-14 09:21] LABS: HBSAg Index 0.16 S/CO (0-0.99); Hep B Surf Ag Non-Reactive S/CO (NonReactive)
[2022-09-14] MEDS ORDERED: Polyethylene Glycol 3350 17 GM Packet PO SCH (12:00)
[2022-09-14] MEDS: Glycerin Adult Supp. (24 ct jar) PR PRN (14:56)
[2022-09-14] MEDS: Nicotine 14 MG PATCH TD SCH (16:05)
[2022-09-14 16:33] LABS: HBSAB Concentration Less than 8.00 mIU/mL; Hep B Core Total Ab Non-Reactive (NonReactive); Hep B Core Total Index 0.23 S/CO (0-0.79); Hep B Surf AB Non-Reactive (NonReactive)
[2022-09-14] MEDS: Docusate Sodium 100 MG/10 ML UDCUP PO SCH (21:13)
[2022-09-14] MEDS: Diltiazem 125 MG in Sodium Chloride 0.9% 100 ML IVPB SCH (22:53)
[2022-09-15] MEDS: oxyCODONE 5 MG TAB PO PRN ×2 (02:50→14:19)
[2022-09-15 04:00] LABS: #Basophils 0.1 10x3/uL (0.0-0.2); #Monocytes 0.4 10x3/uL (0.0-1.1); #Neutrophils 4.1 10x3/uL (1.5-8.4); %Basophils 0.9 % (0.0-2.0); %Eosinophils 0.7 % (0.0-6.0); %Monocytes 7.6 % (0.0-10.0); %Neutrophils 71.1 % (40.0-75.0); Hemoglobin 7.4 g/dL (13.5-17.5); Mean Corpuscular HGB CONC 29.1 g/dL (32.0-36.0); Mean Corpuscular Hemoglobin 30.2 pg (27.0-33.0); Mean Corpuscular Volume 103.7 fl (81.2-95.1); Mean Platelet Volume 10.4 fl (7.4-10.4); Platelet Count 134 10x3/uL (150-450); Red Blood Cell (RBC) Count 2.45 10x6/uL (4.32-5.72); White Blood Cell (WBC) Count 5.8 10x3/uL (3.5-10.5)
[2022-09-15 04:11] LABS: Anion Gap 15 mmol/L (10-20); BUN (Urea Nitrogen) 21 mg/dL (8.4-25.7); Calc. Creatinine Clearance 18 mL/min (70-130); Calcium 8.2 mg/dL (7.8-10.44); Carbon Dioxide 22 mmol/L (23-31); Chloride 100 mmol/L (98-107); Estimated GFR 25; Glucose 81 mg/dL (80-115); Potassium 4.4 mmol/L (3.5-5.1); Sodium 133 mmol/L (136-145)
[2022-09-15 04:32] LABS: Hypochromia SLIGHT = 6-15 cells (100X) (0-5/hpf); Ovalocytes SLIGHT = 2-5 cells (100X) (0-1/hpf); Platelet Morphology Comment Appears Adequate; Polychromasia SLIGHT = 2-3 cells (100X) (0-2/hpf)
[2022-09-15] MEDS: Polyethylene Glycol 3350 17 GM Packet PO SCH (08:36)
[2022-09-15] MEDS: Calcium Acetate 667 MG CAP PO SCH ×3 (08:44→17:07)
[2022-09-15] MEDS: Morphine 2 MG/ML VIAL SLOW IVP PRN ×3 (09:36→23:50)
[2022-09-15] MEDS: Nicotine 14 MG PATCH TD SCH (13:53)
[2022-09-15] MEDS ORDERED: IRON SUCROSE COMPLEX 100 MG/5 ML SLOW IVP SCH (14:00)
[2022-09-15] MEDS ORDERED: Iron, Sodium Ferric Gluconate 125 MG in Sodium Chloride 0.9% 100 ML IVPB SCH (14:30)
[2022-09-15] MEDS: Glycerin Adult Supp. (24 ct jar) PR PRN (14:35)
[2022-09-15] MEDS ORDERED: CEFAZOLIN 2 GM in Sodium Chloride 0.9% 100 ML IVPB SCH (17:15)
[2022-09-15] MEDS ORDERED: Morphine 4 MG/ML VIAL SLOW IVP SCH (18:00)
[2022-09-15] MEDS ORDERED: Pantoprazole 40 MG VIAL IVP SCH (18:00)
[2022-09-15] MEDS: Docusate Sodium 100 MG/10 ML UDCUP PO SCH (19:21)
[2022-09-15] MEDS: busPIRone HCl 5 MG TAB PO SCH (19:21)
[2022-09-15] MEDS: Diltiazem 125 MG in Sodium Chloride 0.9% 100 ML IVPB SCH (20:55)
[2022-09-16 04:14] LABS: #Basophils 0.1 10x3/uL (0.0-0.2); #Monocytes 0.5 10x3/uL (0.0-1.1); #Neutrophils 4.3 10x3/uL (1.5-8.4); %Basophils 1.1 % (0.0-2.0); %Eosinophils 0.6 % (0.0-6.0); %Lymphocytes 19.9 % (18.0-47.0); %Monocytes 7.6 % (0.0-10.0); %Neutrophils 69.8 % (40.0-75.0); Hemoglobin 10.2 g/dL (13.5-17.5); Mean Corpuscular HGB CONC 30.8 g/dL (32.0-36.0); Mean Corpuscular Hemoglobin 30.6 pg (27.0-33.0); Mean Corpuscular Volume 99.4 fl (81.2-95.1); Mean Platelet Volume 10.7 fl (7.4-10.4); Platelet Count 206 10x3/uL (150-450); RBC Distribution Width 19.6 % (11.5-14.5); Red Blood Cell (RBC) Count 3.33 10x6/uL (4.32-5.72); White Blood Cell (WBC) Count 6.2 10x3/uL (3.5-10.5)
[2022-09-16 04:21] LABS: Anion Gap 21 mmol/L (10-20); BUN (Urea Nitrogen) 29 mg/dL (8.4-25.7); Calc. Creatinine Clearance 12 mL/min (70-130); Calcium 8.3 mg/dL (7.8-10.44); Carbon Dioxide 19 mmol/L (23-31); Chloride 100 mmol/L (98-107); Estimated GFR 16; Glucose 71 mg/dL (80-115); Potassium 5.5 mmol/L (3.5-5.1); Sodium 134 mmol/L (136-145)
[2022-09-16] MEDS: oxyCODONE 5 MG TAB PO PRN ×2 (04:27→17:35)
[2022-09-16 04:45] LABS: Anisocytosis SLIGHT = 6-15 cells (100X) (0-5/hpf); Platelet Morphology Comment Appears Adequate
[2022-09-16] MEDS: Morphine 2 MG/ML VIAL SLOW IVP PRN ×3 (04:57→18:28)
[2022-09-16] MEDS ORDERED: Morphine 2 MG/ML VIAL SLOW IVP SCH ×2 (05:30→20:45)
[2022-09-16 06:15] LABS: Magnesium 2.3 mg/dL (1.6-2.6)
[2022-09-16] MEDS: Pancrelipase DR 12,000 1 CAP PO SCH ×3 (08:19→17:52)
[2022-09-16] MEDS: Polyethylene Glycol 3350 17 GM Packet PO SCH (08:19)
[2022-09-16] MEDS: busPIRone HCl 5 MG TAB PO SCH ×2 (08:19→20:18)
[2022-09-16] MEDS: Pantoprazole 40 MG VIAL IVP SCH (08:19)
[2022-09-16] MEDS: Calcium Acetate 667 MG CAP PO SCH ×3 (08:20→17:52)
[2022-09-16 10:19] LABS: Troponin I 0.259 ng/mL (< 0.028)
[2022-09-16] MEDS: Dicyclomine 20 MG/2 ML VIAL IM PRN ×2 (10:47→17:35)
[2022-09-16] MEDS: Nicotine 14 MG PATCH TD SCH (12:21)
[2022-09-16 12:48] LABS: Troponin I 0.262 ng/mL (< 0.028)
[2022-09-16] MEDS: Docusate Sodium 100 MG/10 ML UDCUP PO SCH (20:18)
[2022-09-17] MEDS: Morphine 2 MG/ML VIAL SLOW IVP PRN ×2 (00:27→05:26)
[2022-09-17] MEDS: oxyCODONE 5 MG TAB PO PRN (01:11)
[2022-09-17] MEDS: Dicyclomine 20 MG/2 ML VIAL IM PRN ×2 (01:29→07:13)
[2022-09-17 03:49] LABS: #Monocytes 0.3 10x3/uL (0.0-1.1); #Neutrophils 5.7 10x3/uL (1.5-8.4); %Basophils 0.5 % (0.0-2.0); %Lymphocytes 6.3 % (18.0-47.0); %Monocytes 4.6 % (0.0-10.0); %Neutrophils 87.1 % (40.0-75.0); Hemoglobin 9.6 g/dL (13.5-17.5); Mean Corpuscular HGB CONC 30.6 g/dL (32.0-36.0); Mean Corpuscular Volume 101.3 fl (81.2-95.1); Mean Platelet Volume 10.8 fl (7.4-10.4); Platelet Count 167 10x3/uL (150-450); White Blood Cell (WBC) Count 6.5 10x3/uL (3.5-10.5)
[2022-09-17 04:01] LABS: Anion Gap 26 mmol/L (10-20); BUN (Urea Nitrogen) 46 mg/dL (8.4-25.7); Calc. Creatinine Clearance 10 mL/min (70-130); Calcium 8.3 mg/dL (7.8-10.44); Carbon Dioxide 16 mmol/L (23-31); Chloride 101 mmol/L (98-107); Estimated GFR 12; Sodium 136 mmol/L (136-145)
[2022-09-17 04:05] LABS: Glucose 30 mg/dL (80-115); Potassium 6.9 mmol/L (3.5-5.1)
[2022-09-17] MEDS ORDERED: Dextrose 50% Abboject 50 ML SYRINGE ONE (04:10)
[2022-09-17] MEDS: Dextrose 50% Abboject 50 ML SYRINGE SLOW IVP SCH ×2 (04:29→08:00)
[2022-09-17] MEDS ORDERED: Calcium Gluconate 4.6 MEQ in Sodium Chloride 0.9% 100 ML IVPB SCH (04:30)
[2022-09-17 05:46] LABS: Potassium 6.4 mmol/L (3.5-5.1)
[2022-09-17] MEDS: Calcium Acetate 667 MG CAP PO SCH ×3 (07:24→17:21)
[2022-09-17] MEDS: Pancrelipase DR 12,000 1 CAP PO SCH ×3 (07:25→17:21)
[2022-09-17] MEDS: Polyethylene Glycol 3350 17 GM Packet PO SCH (07:25)
[2022-09-17] MEDS ORDERED: NOREPINEPHRINE 8 MG/250 ML-D5W 250 ML IVPB PRN (08:16)
[2022-09-17] MEDS ORDERED: Sodium Bicarb 50 MEQ/50 ML VIAL IVP SCH (08:30)
[2022-09-17] MEDS ORDERED: Sodium Chloride 0.9% 500 ML IV SCH (08:30)
[2022-09-17] MEDS: busPIRone HCl 5 MG TAB PO SCH (08:33)
[2022-09-17] MEDS: Dextrose 5 % And 0.9 % NaCl 500 ML IV SCH ×2 (08:37→09:52)
[2022-09-17] MEDS: LOKELMA 5 GM PACKET PO SCH (08:38)
[2022-09-17] MEDS: Pantoprazole 40 MG VIAL IVP SCH (08:38)
[2022-09-17] MEDS: Hydrocortisone Sod Succ/PF 100 mg/2 ml Vial IVP SCH ×3 (08:38→21:58)
[2022-09-17] MEDS: Nicotine 14 MG PATCH TD SCH ×2 (12:25→12:28)
[2022-09-17] MEDS: Sodium Bicarbonate Tab 325 MG TAB PO SCH ×2 (14:45→21:57)
[2022-09-17 15:28] LABS: Lactic Acid 3.5 mmol/L (0.5-2.2)
[2022-09-17 15:40] LABS: Anion Gap 19 mmol/L (10-20); BUN (Urea Nitrogen) 17 mg/dL (8.4-25.7); Calc. Creatinine Clearance 22 mL/min (70-130); Calcium 8.2 mg/dL (7.8-10.44); Carbon Dioxide 20 mmol/L (23-31); Chloride 101 mmol/L (98-107); Estimated GFR 31; Glucose 117 mg/dL (80-115); Sodium 136 mmol/L (136-145)
[2022-09-17] MEDS ORDERED: Metoprolol Tartrate 5 MG/5 ML VIAL IVP PRN (19:18)
[2022-09-18 04:57] LABS: Lactic Acid 1.6 mmol/L (0.5-2.2)
[2022-09-18 05:01] LABS: #Monocytes 0.3 10x3/uL (0.0-1.1); #Neutrophils 7.9 10x3/uL (1.5-8.4); %Basophils 0.2 % (0.0-2.0); %Lymphocytes 8.1 % (18.0-47.0); %Monocytes 3.3 % (0.0-10.0); %Neutrophils 87.2 % (40.0-75.0); Hemoglobin 10.1 g/dL (13.5-17.5); Mean Corpuscular HGB CONC 30.9 g/dL (32.0-36.0); Mean Corpuscular Hemoglobin 30.4 pg (27.0-33.0); Mean Corpuscular Volume 98.5 fl (81.2-95.1); Mean Platelet Volume 10.9 fl (7.4-10.4); Platelet Count 153 10x3/uL (150-450); RBC Distribution Width 19.5 % (11.5-14.5); Red Blood Cell (RBC) Count 3.32 10x6/uL (4.32-5.72); White Blood Cell (WBC) Count 9.1 10x3/uL (3.5-10.5)
[2022-09-18 05:03] LABS: Chloride 95 mmol/L (98-107); Potassium 4.7 mmol/L (3.5-5.1); Sodium 132 mmol/L (136-145)
[2022-09-18 05:20] LABS: ALT (SGPT) 258 U/L (8-55); AST (SGOT) 448 U/L (5-34); Albumin 2.7 g/dL (3.4-4.8); Alkaline Phosphatase 106 U/L (40-110); BUN (Urea Nitrogen) 25 mg/dL (8.4-25.7); Bilirubin, Total 0.8 mg/dL (0.2-1.2); Calc. Creatinine Clearance 16 mL/min (70-130); Calcium 7.8 mg/dL (7.8-10.44); Carbon Dioxide 18 mmol/L (23-31); Estimated GFR 22; Globulin 3.3 g/dL (2.4-3.5); Glucose 84 mg/dL (80-115)
[2022-09-18 05:22] LABS: Anion Gap 24 mmol/L (10-20)
[2022-09-18] MEDS: Hydrocortisone Sod Succ/PF 100 mg/2 ml Vial IVP SCH ×2 (06:24→21:18)
[2022-09-18] MEDS: Sodium Bicarbonate Tab 325 MG TAB PO SCH ×3 (08:17→21:16)
[2022-09-18] MEDS: LOKELMA 5 GM PACKET PO SCH (08:17)
[2022-09-18] MEDS: Pantoprazole 40 MG VIAL IVP SCH (08:17)
[2022-09-18] MEDS: busPIRone HCl 5 MG TAB PO SCH (08:18)
[2022-09-18] MEDS: Calcium Acetate 667 MG CAP PO SCH ×3 (08:18→16:19)
[2022-09-18] MEDS: Pancrelipase DR 12,000 1 CAP PO SCH ×3 (08:18→16:19)
[2022-09-18] MEDS: Polyethylene Glycol 3350 17 GM Packet PO SCH (08:18)
[2022-09-18] MEDS: oxyCODONE 5 MG TAB PO PRN (08:52)
[2022-09-18] MEDS: Nicotine 14 MG PATCH TD SCH (11:20)
[2022-09-18] MEDS: Morphine 2 MG/ML VIAL SLOW IVP PRN (17:53)
[2022-09-18] MEDS: Docusate Sodium 100 MG/10 ML UDCUP PO SCH (21:16)
[2022-09-19] MEDS: Morphine 2 MG/ML VIAL SLOW IVP PRN ×3 (00:54→17:57)
[2022-09-19 03:30] LABS: #Monocytes 0.5 10x3/uL (0.0-1.1); #Neutrophils 7.5 10x3/uL (1.5-8.4); %Basophils 0.3 % (0.0-2.0); %Lymphocytes 10.4 % (18.0-47.0); %Monocytes 5.2 % (0.0-10.0); Hemoglobin 10.3 g/dL (13.5-17.5); Mean Corpuscular HGB CONC 30.7 g/dL (32.0-36.0); Mean Corpuscular Hemoglobin 30.7 pg (27.0-33.0); Mean Corpuscular Volume 100.3 fl (81.2-95.1); Mean Platelet Volume 10.8 fl (7.4-10.4); Platelet Count 162 10x3/uL (150-450); RBC Distribution Width 20.3 % (11.5-14.5); Red Blood Cell (RBC) Count 3.35 10x6/uL (4.32-5.72); White Blood Cell (WBC) Count 9.2 10x3/uL (3.5-10.5)
[2022-09-19] MEDS: oxyCODONE 5 MG TAB PO PRN ×3 (03:43→23:50)
[2022-09-19 03:45] LABS: Anion Gap 23 mmol/L (10-20); BUN (Urea Nitrogen) 40 mg/dL (8.4-25.7); Calc. Creatinine Clearance 13 mL/min (70-130); Calcium 7.8 mg/dL (7.8-10.44); Carbon Dioxide 22 mmol/L (23-31); Chloride 98 mmol/L (98-107); Estimated GFR 15; Glucose 100 mg/dL (80-115); Potassium 5.5 mmol/L (3.5-5.1); Sodium 137 mmol/L (136-145)
[2022-09-19] MEDS: Pantoprazole 40 MG VIAL IVP SCH (09:35)
[2022-09-19] MEDS: Calcium Acetate 667 MG CAP PO SCH ×4 (09:35→18:11)
[2022-09-19] MEDS: busPIRone HCl 5 MG TAB PO SCH (09:35)
[2022-09-19] MEDS: LOKELMA 5 GM PACKET PO SCH (09:35)
[2022-09-19] MEDS: Hydrocortisone Sod Succ/PF 100 mg/2 ml Vial IVP SCH ×2 (09:35→22:14)
[2022-09-19] MEDS: Sodium Bicarbonate Tab 325 MG TAB PO SCH ×4 (09:36→22:27)
[2022-09-19] MEDS: Pancrelipase DR 12,000 1 CAP PO SCH ×3 (09:36→18:11)
[2022-09-19] MEDS: Polyethylene Glycol 3350 17 GM Packet PO SCH (09:36)
[2022-09-19] MEDS: Nicotine 14 MG PATCH TD SCH (16:39)
[2022-09-19] MEDS: Docusate Sodium 100 MG/10 ML UDCUP PO SCH (22:26)
[2022-09-20 05:19] LABS: #Eosinphils 0.2 10x3/uL (0.0-0.5); #Monocytes 0.3 10x3/uL (0.0-1.1); #Neutrophils 7.9 10x3/uL (1.5-8.4); %Basophils 0.3 % (0.0-2.0); %Lymphocytes 5.5 % (18.0-47.0); %Monocytes 3.1 % (0.0-10.0); %Neutrophils 87.2 % (40.0-75.0); Hemoglobin 10.7 g/dL (13.5-17.5); Mean Corpuscular HGB CONC 31.4 g/dL (32.0-36.0); Mean Corpuscular Hemoglobin 31.7 pg (27.0-33.0); Mean Corpuscular Volume 100.9 fl (81.2-95.1); Mean Platelet Volume 11.1 fl (7.4-10.4); Platelet Count 133 10x3/uL (150-450); RBC Distribution Width 20.6 % (11.5-14.5); Red Blood Cell (RBC) Count 3.38 10x6/uL (4.32-5.72); White Blood Cell (WBC) Count 9.1 10x3/uL (3.5-10.5)
[2022-09-20 05:27] LABS: Anion Gap 18 mmol/L (10-20); BUN (Urea Nitrogen) 28 mg/dL (8.4-25.7); Calc. Creatinine Clearance 16 mL/min (70-130); Calcium 7.6 mg/dL (7.8-10.44); Carbon Dioxide 22 mmol/L (23-31); Chloride 99 mmol/L (98-107); Estimated GFR 21; Glucose 96 mg/dL (80-115); Potassium 4.3 mmol/L (3.5-5.1); Sodium 135 mmol/L (136-145)
[2022-09-20] MEDS: Calcium Acetate 667 MG CAP PO SCH ×3 (08:31→17:00)
[2022-09-20] MEDS: Pancrelipase DR 12,000 1 CAP PO SCH ×3 (08:32→17:00)
[2022-09-20] MEDS: Sodium Bicarbonate Tab 325 MG TAB PO SCH ×3 (08:32→21:18)
[2022-09-20] MEDS: Polyethylene Glycol 3350 17 GM Packet PO SCH (08:32)
[2022-09-20] MEDS: LOKELMA 5 GM PACKET PO SCH (08:34)
[2022-09-20] MEDS: busPIRone HCl 5 MG TAB PO SCH (08:37)
[2022-09-20] MEDS ORDERED: hydrALAZINE 20 MG/ML VIAL SLOW IVP PRN (08:59)
[2022-09-20] MEDS ORDERED: Amlodipine 5 MG TAB PO SCH (09:00)
[2022-09-20] MEDS: Morphine 2 MG/ML VIAL SLOW IVP PRN (09:25)
[2022-09-20] MEDS: Pantoprazole 40 MG VIAL IVP SCH (09:27)
[2022-09-20] MEDS: Hydrocortisone Sod Succ/PF 100 mg/2 ml Vial IVP SCH ×2 (09:27→21:17)
[2022-09-20] MEDS: Metoprolol Tartrate 25 MG TAB PO SCH ×2 (09:27→21:18)
[2022-09-20] MEDS ORDERED: EPOETIN ALFA-EPBX (ESRD) 10,000 UNIT/ML VIAL SC SCH (10:00)
[2022-09-20] MEDS: Nicotine 7 MG PATCH TD SCH (12:03)
[2022-09-20] MEDS ORDERED: Midazolam HCl 2 mg/2 ml Vial ONE (12:25)
[2022-09-20] MEDS ORDERED: Ketamine 50 MG/ML (10ML VIAL) ONE (12:28)
[2022-09-20] MEDS ORDERED: CEFAZOLIN 1 GM VIAL ONE (12:30)
[2022-09-20] MEDS ORDERED: Glycopyrrolate 0.2 MG/ML 5 ML SYRINGE ONE (12:54)
[2022-09-20] MEDS ORDERED: cloNIDine 0.1mg/24 Hour PATCH TD SCH ×2 (21:00)
[2022-09-20] MEDS: Docusate Sodium 100 MG/10 ML UDCUP PO SCH (21:17)
[2022-09-20] MEDS: oxyCODONE 5 MG TAB PO PRN (21:35)
[2022-09-21] MEDS: Morphine 2 MG/ML VIAL SLOW IVP PRN ×2 (00:26→12:19)
[2022-09-21 05:13] LABS: Anion Gap 20 mmol/L (10-20); BUN (Urea Nitrogen) 42 mg/dL (8.4-25.7); Calc. Creatinine Clearance 12 mL/min (70-130); Calcium 7.7 mg/dL (7.8-10.44); Carbon Dioxide 23 mmol/L (23-31); Chloride 97 mmol/L (98-107); Estimated GFR 15; Glucose 104 mg/dL (80-115); Potassium 5.3 mmol/L (3.5-5.1); Sodium 135 mmol/L (136-145)
[2022-09-21 05:35] LABS: Hemoglobin 11.3 g/dL (13.5-17.5); Mean Corpuscular Hemoglobin 31.4 pg (27.0-33.0); Mean Corpuscular Volume 101.4 fl (81.2-95.1); Mean Platelet Volume 10.7 fl (7.4-10.4); Platelet Count 138 10x3/uL (150-450); RBC Distribution Width 21.2 % (11.5-14.5); White Blood Cell (WBC) Count 8.8 10x3/uL (3.5-10.5)
[2022-09-21 06:25] LABS: MDiff Complete? YES
[2022-09-21 06:28] LABS: Lymphocytes 5 % (21-51); Monocytes 4 % (0-10); Neutrophil 91 % (42-75)
[2022-09-21 06:29] LABS: Platelet Morphology Comment Appears Decreased; RBC Morphology Normal
[2022-09-21] MEDS: Nicotine 7 MG PATCH TD SCH (08:12)
[2022-09-21] MEDS: Polyethylene Glycol 3350 17 GM Packet PO SCH (08:12)
[2022-09-21] MEDS: Hydrocortisone Sod Succ/PF 100 mg/2 ml Vial IVP SCH ×2 (08:20→20:41)
[2022-09-21] MEDS: Sodium Bicarbonate Tab 325 MG TAB PO SCH ×3 (08:20→20:42)
[2022-09-21] MEDS: Pantoprazole 40 MG VIAL IVP SCH (08:20)
[2022-09-21] MEDS: LOKELMA 5 GM PACKET PO SCH (08:20)
[2022-09-21] MEDS: busPIRone HCl 5 MG TAB PO SCH (08:20)
[2022-09-21] MEDS: oxyCODONE 5 MG TAB PO PRN ×2 (08:21→14:42)
[2022-09-21] MEDS: Metoprolol Tartrate 25 MG TAB PO SCH ×2 (08:21→20:42)
[2022-09-21] MEDS: Pancrelipase DR 12,000 1 CAP PO SCH ×3 (08:22→17:37)
[2022-09-21] MEDS: Calcium Acetate 667 MG CAP PO SCH ×3 (08:23→17:38)
[2022-09-21] MEDS ORDERED: Amlodipine 5 MG TAB PO SCH (12:15)
[2022-09-21] MEDS: Lorazepam 2 MG/ML VIAL SLOW IVP PRN (17:33)
[2022-09-21] MEDS: Docusate Sodium 100 MG/10 ML UDCUP PO SCH (20:41)
[2022-09-22 05:19] LABS: Anion Gap 18 mmol/L (10-20); BUN (Urea Nitrogen) 24 mg/dL (8.4-25.7); Carbon Dioxide 24 mmol/L (23-31); Chloride 99 mmol/L (98-107); Potassium 3.7 mmol/L (3.5-5.1); Sodium 137 mmol/L (136-145)
[2022-09-22 05:20] LABS: Calc. Creatinine Clearance 18 mL/min (70-130); Calcium 7.7 mg/dL (7.8-10.44); Estimated GFR 23; Glucose 126 mg/dL (80-115)
[2022-09-22 05:34] LABS: Hemoglobin 11.5 g/dL (13.5-17.5); Mean Corpuscular HGB CONC 31.2 g/dL (32.0-36.0); Mean Corpuscular Hemoglobin 31.8 pg (27.0-33.0); Mean Corpuscular Volume 101.9 fl (81.2-95.1); Mean Platelet Volume 11.4 fl (7.4-10.4); Platelet Count 101 10x3/uL (150-450); RBC Distribution Width 22.6 % (11.5-14.5); Red Blood Cell (RBC) Count 3.62 10x6/uL (4.32-5.72); White Blood Cell (WBC) Count 7.6 10x3/uL (3.5-10.5)
[2022-09-22 06:17] LABS: MDiff Complete? YES
[2022-09-22 06:21] LABS: Band 5 % (5-11); Lymphocytes 6 % (21-51); Monocytes 5 % (0-10); Neutrophil 84 % (42-75)
[2022-09-22 06:22] LABS: Anisocytosis SLIGHT = 6-15 cells (100X) (0-5/hpf); Macrocytosis SLIGHT = 6-15 cells (100X) (0-5/hpf); Platelet Morphology Comment Appears Decreased
[2022-09-22] MEDS: Pantoprazole 40 MG VIAL IVP SCH (09:04)
[2022-09-22] MEDS: Hydrocortisone Sod Succ/PF 100 mg/2 ml Vial IVP SCH (09:05)
[2022-09-22] MEDS: LOKELMA 5 GM PACKET PO SCH (09:22)
[2022-09-22] MEDS: Polyethylene Glycol 3350 17 GM Packet PO SCH (09:23)
[2022-09-22] MEDS: Metoprolol Tartrate 25 MG TAB PO SCH ×2 (09:23→20:17)
[2022-09-22] MEDS: Amlodipine 5 MG TAB PO SCH (09:24)
[2022-09-22] MEDS: busPIRone HCl 5 MG TAB PO SCH (09:24)
[2022-09-22] MEDS: Pancrelipase DR 12,000 1 CAP PO SCH ×3 (09:25→16:34)
[2022-09-22] MEDS: Sodium Bicarbonate Tab 325 MG TAB PO SCH ×3 (09:25→20:17)
[2022-09-22] MEDS: Calcium Acetate 667 MG CAP PO SCH ×3 (09:26→16:33)
[2022-09-22] MEDS: Nicotine 7 MG PATCH TD SCH (11:26)
[2022-09-22] MEDS: Morphine 2 MG/ML VIAL SLOW IVP PRN ×2 (13:07→17:37)
[2022-09-22] MEDS: oxyCODONE 5 MG TAB PO PRN (18:23)
[2022-09-22] MEDS: Docusate Sodium 100 MG/10 ML UDCUP PO SCH (20:31)
[2022-09-23] MEDS: Morphine 2 MG/ML VIAL SLOW IVP PRN ×4 (00:07→20:53)
[2022-09-23] MEDS: Lorazepam 2 MG/ML VIAL SLOW IVP PRN ×2 (03:28→15:57)
[2022-09-23 05:17] LABS: #Monocytes 0.5 10x3/uL (0.0-1.1); #Neutrophils 7.1 10x3/uL (1.5-8.4); %Basophils 0.2 % (0.0-2.0); %Eosinophils 0.2 % (0.0-6.0); %Lymphocytes 11.1 % (18.0-47.0); %Monocytes 5.4 % (0.0-10.0); %Neutrophils 82.1 % (40.0-75.0); Hemoglobin 10.4 g/dL (13.5-17.5); Mean Corpuscular HGB CONC 30.9 g/dL (32.0-36.0); Mean Corpuscular Hemoglobin 32.2 pg (27.0-33.0); Mean Corpuscular Volume 104.3 fl (81.2-95.1); Mean Platelet Volume 11.2 fl (7.4-10.4); Platelet Count 99 10x3/uL (150-450); RBC Distribution Width 23.4 % (11.5-14.5); Red Blood Cell (RBC) Count 3.23 10x6/uL (4.32-5.72); White Blood Cell (WBC) Count 8.7 10x3/uL (3.5-10.5)
[2022-09-23 05:19] LABS: Anion Gap 19 mmol/L (10-20); BUN (Urea Nitrogen) 38 mg/dL (8.4-25.7); Calc. Creatinine Clearance 13 mL/min (70-130); Calcium 7.7 mg/dL (7.8-10.44); Carbon Dioxide 24 mmol/L (23-31); Chloride 97 mmol/L (98-107); Estimated GFR 17; Glucose 116 mg/dL (80-115); Potassium 3.7 mmol/L (3.5-5.1); Sodium 136 mmol/L (136-145)
[2022-09-23] MEDS: Pantoprazole 40 MG VIAL IVP SCH (08:11)
[2022-09-23] MEDS: Calcium Acetate 667 MG CAP PO SCH ×3 (08:12→17:26)
[2022-09-23] MEDS: busPIRone HCl 5 MG TAB PO SCH (08:13)
[2022-09-23] MEDS: Polyethylene Glycol 3350 17 GM Packet PO SCH (08:13)
[2022-09-23] MEDS: Amlodipine 5 MG TAB PO SCH (08:13)
[2022-09-23] MEDS: Metoprolol Tartrate 25 MG TAB PO SCH ×2 (08:13→20:53)
[2022-09-23] MEDS: LOKELMA 5 GM PACKET PO SCH (08:13)
[2022-09-23] MEDS: Sodium Bicarbonate Tab 325 MG TAB PO SCH ×3 (08:13→20:53)
[2022-09-23] MEDS: Pancrelipase DR 12,000 1 CAP PO SCH ×3 (08:14→17:26)
[2022-09-23] MEDS: Nicotine 7 MG PATCH TD SCH (08:25)
[2022-09-23] MEDS ORDERED: Hydrocortisone Sod Succ/PF 100 mg/2 ml Vial IVP SCH (09:00)
[2022-09-23] MEDS: oxyCODONE 5 MG TAB PO PRN ×2 (09:48→22:52)
[2022-09-23] MEDS: Ipratropium/Albuterol 3 ML NEB NEB PRN ×2 (13:00→17:43)
[2022-09-23] MEDS: Docusate Sodium 100 MG/10 ML UDCUP PO SCH (20:53)
[2022-09-24] MEDS ORDERED: Lorazepam 2 MG/ML VIAL SLOW IVP SCH (01:15)
[2022-09-24] MEDS: Morphine 2 MG/ML VIAL SLOW IVP PRN ×3 (05:19→23:44)
[2022-09-24 07:04] LABS: Anion Gap 25 mmol/L (10-20); BUN (Urea Nitrogen) 60 mg/dL (8.4-25.7); Calc. Creatinine Clearance 11 mL/min (70-130); Carbon Dioxide 22 mmol/L (23-31); Chloride 94 mmol/L (98-107); Estimated GFR 13; Glucose 89 mg/dL (80-115); Potassium 3.6 mmol/L (3.5-5.1); Sodium 137 mmol/L (136-145)
[2022-09-24 07:13] LABS: #Monocytes 0.4 10x3/uL (0.0-1.1); #Neutrophils 9.7 10x3/uL (1.5-8.4); %Basophils 0.4 % (0.0-2.0); %Eosinophils 0.3 % (0.0-6.0); %Lymphocytes 6.8 % (18.0-47.0); %Monocytes 3.2 % (0.0-10.0); %Neutrophils 87.8 % (40.0-75.0); Hemoglobin 10.6 g/dL (13.5-17.5); Mean Corpuscular HGB CONC 31.1 g/dL (32.0-36.0); Mean Platelet Volume 11.6 fl (7.4-10.4); Platelet Count 98 10x3/uL (150-450); RBC Distribution Width 23.6 % (11.5-14.5); Red Blood Cell (RBC) Count 3.34 10x6/uL (4.32-5.72)
[2022-09-24] MEDS: Ipratropium/Albuterol 3 ML NEB NEB PRN ×2 (09:00→17:19)
[2022-09-24] MEDS: Pantoprazole 40 MG VIAL IVP SCH (09:39)
[2022-09-24] MEDS: Sodium Bicarbonate Tab 325 MG TAB PO SCH ×3 (09:39→20:33)
[2022-09-24] MEDS: Amlodipine 10 MG TAB PO SCH (09:39)
[2022-09-24] MEDS: Hydrocortisone Sod Succ/PF 100 mg/2 ml Vial IVP SCH (09:40)
[2022-09-24] MEDS: Pancrelipase DR 12,000 1 CAP PO SCH ×3 (09:41→17:28)
[2022-09-24] MEDS: Metoprolol Tartrate 25 MG TAB PO SCH ×2 (09:41→20:33)
[2022-09-24] MEDS: Calcium Acetate 667 MG CAP PO SCH ×3 (09:41→17:28)
[2022-09-24] MEDS: Polyethylene Glycol 3350 17 GM Packet PO SCH (09:42)
[2022-09-24] MEDS: LOKELMA 5 GM PACKET PO SCH (09:42)
[2022-09-24] MEDS: busPIRone HCl 5 MG TAB PO SCH (09:45)
[2022-09-24] MEDS: Nicotine 7 MG PATCH TD SCH (17:27)
[2022-09-24] MEDS: oxyCODONE 5 MG TAB PO PRN (19:30)
[2022-09-24] MEDS: Docusate Sodium 100 MG/10 ML UDCUP PO SCH (20:33)
[2022-09-24] MEDS ORDERED: HYDROcodone/Acetaminophen 5/325 mg Tablet PO SCH (22:15)
[2022-09-25] MEDS: oxyCODONE 5 MG TAB PO PRN ×3 (02:40→20:16)
[2022-09-25] MEDS: Amlodipine 5 MG TAB PO SCH (03:32)
[2022-09-25] MEDS: Ipratropium/Albuterol 3 ML NEB NEB PRN ×3 (03:54→21:46)
[2022-09-25] MEDS ORDERED: Guaifenesin DM 100-10/5 ML UDCUP PO PRN (04:33)
[2022-09-25 05:40] LABS: Hemoglobin 8.7 g/dL (13.5-17.5); Mean Corpuscular HGB CONC 31.8 g/dL (32.0-36.0); Mean Corpuscular Hemoglobin 32.5 pg (27.0-33.0); Mean Corpuscular Volume 102.2 fl (81.2-95.1); Mean Platelet Volume 11.7 fl (7.4-10.4); Platelet Count 74 10x3/uL (150-450); RBC Distribution Width 23.9 % (11.5-14.5); Red Blood Cell (RBC) Count 2.68 10x6/uL (4.32-5.72); White Blood Cell (WBC) Count 6.1 10x3/uL (3.5-10.5)
[2022-09-25 05:50] LABS: Anion Gap 16 mmol/L (10-20); BUN (Urea Nitrogen) 39 mg/dL (8.4-25.7); Calc. Creatinine Clearance 17 mL/min (70-130); Calcium 7.7 mg/dL (7.8-10.44); Carbon Dioxide 25 mmol/L (23-31); Chloride 97 mmol/L (98-107); Estimated GFR 20; Glucose 123 mg/dL (80-115); Potassium 3.3 mmol/L (3.5-5.1); Sodium 135 mmol/L (136-145)
[2022-09-25 05:54] LABS: MDiff Complete? YES
[2022-09-25 05:58] LABS: Anisocytosis SLIGHT = 6-15 cells (100X) (0-5/hpf); Band 20 % (5-11); Eosinophils 1 % (0-10); Lymphocytes 11 % (21-51); Monocytes 3 % (0-10); Myelocyte 1 % (0-0); Neutrophil 64 % (42-75)
[2022-09-25 06:01] LABS: Macrocytosis SLIGHT = 6-15 cells (100X) (0-5/hpf); Platelet Morphology Comment Appears Decreased
[2022-09-25] MEDS: Morphine 2 MG/ML VIAL SLOW IVP PRN ×3 (06:30→22:40)
[2022-09-25] MEDS ORDERED: Potassium Chloride 8 MEQ TAB PO SCH (08:00)
[2022-09-25] MEDS: Amlodipine 10 MG TAB PO SCH (08:57)
[2022-09-25] MEDS: Pantoprazole 40 MG VIAL IVP SCH (08:57)
[2022-09-25] MEDS: Hydrocortisone Sod Succ/PF 100 mg/2 ml Vial IVP SCH (08:57)
[2022-09-25] MEDS: Calcium Acetate 667 MG CAP PO SCH ×3 (08:58→17:18)
[2022-09-25] MEDS: Pancrelipase DR 12,000 1 CAP PO SCH ×3 (08:58→17:18)
[2022-09-25] MEDS: Metoprolol Tartrate 25 MG TAB PO SCH ×2 (08:58→20:16)
[2022-09-25] MEDS: busPIRone HCl 5 MG TAB PO SCH (08:58)
[2022-09-25] MEDS: Polyethylene Glycol 3350 17 GM Packet PO SCH (09:00)
[2022-09-25] MEDS ORDERED: Metoprolol Tartrate 25 MG TAB PO SCH (10:15)
[2022-09-25] MEDS: Nicotine 7 MG PATCH TD SCH (13:20)
[2022-09-25 14:35] VITALS: BMI 19.1
[2022-09-25] MEDS: Docusate Sodium 100 MG/10 ML UDCUP PO SCH (20:17)
[2022-09-26] MEDS: Lorazepam 0.5 MG TAB PO PRN ×2 (04:51→10:53)
[2022-09-26 04:56] LABS: #Eosinphils 0.1 10x3/uL (0.0-0.5); #Monocytes 0.5 10x3/uL (0.0-1.1); #Neutrophils 5.3 10x3/uL (1.5-8.4); %Basophils 0.1 % (0.0-2.0); %Eosinophils 1.6 % (0.0-6.0); %Lymphocytes 11.7 % (18.0-47.0); %Monocytes 7.7 % (0.0-10.0); %Neutrophils 77.7 % (40.0-75.0); Hemoglobin 9.4 g/dL (13.5-17.5); Mean Corpuscular HGB CONC 30.9 g/dL (32.0-36.0); Mean Corpuscular Hemoglobin 32.3 pg (27.0-33.0); Mean Corpuscular Volume 104.5 fl (81.2-95.1); Platelet Count 87 10x3/uL (150-450); RBC Distribution Width 23.3 % (11.5-14.5); Red Blood Cell (RBC) Count 2.91 10x6/uL (4.32-5.72); White Blood Cell (WBC) Count 6.8 10x3/uL (3.5-10.5)
[2022-09-26] MEDS: oxyCODONE 5 MG TAB PO PRN ×3 (06:10→18:10)
[2022-09-26] MEDS: Morphine 2 MG/ML VIAL SLOW IVP PRN ×2 (08:25→14:24)
[2022-09-26] MEDS: LOKELMA 5 GM PACKET PO SCH (08:26)
[2022-09-26] MEDS: Metoprolol Tartrate 25 MG TAB PO SCH ×2 (08:26→20:55)
[2022-09-26] MEDS: Amlodipine 10 MG TAB PO SCH (08:26)
[2022-09-26] MEDS: busPIRone HCl 5 MG TAB PO SCH (08:26)
[2022-09-26] MEDS: Calcium Acetate 667 MG CAP PO SCH ×3 (08:26→16:24)
[2022-09-26] MEDS: Polyethylene Glycol 3350 17 GM Packet PO SCH (08:27)
[2022-09-26] MEDS: Pantoprazole 40 MG VIAL IVP SCH (08:27)
[2022-09-26] MEDS: Pancrelipase DR 12,000 1 CAP PO SCH ×3 (08:27→16:24)
[2022-09-26 11:54] LABS: Anion Gap 19 mmol/L (10-20); BUN (Urea Nitrogen) 62 mg/dL (8.4-25.7); Calc. Creatinine Clearance 12 mL/min (70-130); Calcium 7.8 mg/dL (7.8-10.44); Carbon Dioxide 20 mmol/L (23-31); Chloride 95 mmol/L (98-107); Estimated GFR 15; Glucose 91 mg/dL (80-115); Potassium 4.1 mmol/L (3.5-5.1); Sodium 130 mmol/L (136-145)
[2022-09-26] MEDS: Nicotine 7 MG PATCH TD SCH (13:14)
[2022-09-26 13:52] VITALS: TEMP 97.9
[2022-09-26] MEDS: Docusate Sodium 100 MG/10 ML UDCUP PO SCH (20:55)
[2022-09-27 00:33] VITALS: BP 187/74
[2022-09-27] MEDS ORDERED: Lansoprazole 3 MG/ML ORAL SUSPENSION PER TUBE SCH (09:00)
== END 2022-09-26 21:00 | DRG 280 ==
LOC: CSHERS 09:42 → SUATTDRO 09:42 → OBSVTOIN 15:38 → CSHERHOLD 15:38 → CSHTELE 16:46 → CSHERHOLD 17:30 → CSHICU 19:30 → CSHTELE 09-21 15:02
PROVIDERS: ADMIT Family Medicine; ATTEND Internal Medicine
PROC: 5A1D70Z Performance of Urinary Filtration, Intermittent, Less than 6 Hours Per Day (ICD-10-PCS; principal; 2022-09-17)
PROC: 0DH63UZ Insertion of Feeding Device into Stomach, Percutaneous Approach (ICD-10-PCS; 2022-09-20)
PROC: 3E0G76Z Introduction of Nutritional Substance into Upper GI, Via Natural or Artificial Opening (ICD-10-PCS; 2022-09-20)
DX: I48.91 Unspecified atrial fibrillation (principal); N18.6 End stage renal disease; I21.A1 Myocardial infarction type 2; I12.0 Hypertensive chronic kidney disease with stage 5 chronic kidney disease or end stage renal disease; E87.20 Acidosis, unspecified; J96.11 Chronic respiratory failure with hypoxia; K86.1 Other chronic pancreatitis; J90 Pleural effusion, not elsewhere classified; R64 Cachexia; Z68.1 Body mass index [BMI] 19.9 or less, adult; Z66 Do not resuscitate; Z20.822 Contact with and (suspected) exposure to COVID-19; E89.0 Postprocedural hypothyroidism; E78.5 Hyperlipidemia, unspecified; J44.9 Chronic obstructive pulmonary disease, unspecified; K21.9 Gastro-esophageal reflux disease without esophagitis; D63.1 Anemia in chronic kidney disease; F41.9 Anxiety disorder, unspecified; D50.9 Iron deficiency anemia, unspecified; I25.118 Atherosclerotic heart disease of native coronary artery with other forms of angina pectoris; R13.12 Dysphagia, oropharyngeal phase; E87.5 Hyperkalemia; E16.2 Hypoglycemia, unspecified; F17.210 Nicotine dependence, cigarettes, uncomplicated; Z99.2 Dependence on renal dialysis; Z85.118 Personal history of other malignant neoplasm of bronchus and lung; Z85.51 Personal history of malignant neoplasm of bladder; Z92.21 Personal history of antineoplastic chemotherapy; Z92.3 Personal history of irradiation; Z90.49 Acquired absence of other specified parts of digestive tract; Z88.7 Allergy status to serum and vaccine; Z79.890 Hormone replacement therapy; Z80.1 Family history of malignant neoplasm of trachea, bronchus and lung; Z79.899 Other long term (current) drug therapy; I25.2 Old myocardial infarction; Z71.6 Tobacco abuse counseling
CPT/HCPCS: 36415; 36416; 36430; 70450; 71045; 71260; 74177; 74230; 80048; 80053; 82010; 82533; 82553; 83605; 83735; 84443; 84484; 85025; 85730; 86704; 86706; 86850; 86900; 86901; 87340; 87811; 90935; 93005; 93010; 93923; 94640; 94760; 94762; 96365; 96366; 96375; 96376; C9113; G0257; J0610; J0690; J1160; J1644; J1720; J2060; J2250; J2270; J2272; J2916; J3475; J3490; J7042; J7611; J7620; J7999; P9016; Q5105; U0002

== ENCOUNTER 2022-10-12 08:19 | Inpatient (IN) | payer BC, MEDICARE ==
[2022-10-12 09:41] LABS: Hemoglobin 4.4 g/dL (13.5-17.5); Mean Corpuscular HGB CONC 31.2 g/dL (32.0-36.0); Mean Corpuscular Hemoglobin 31.4 pg (27.0-33.0); Mean Corpuscular Volume 100.7 fl (81.2-95.1); RBC Distribution Width 20.2 % (11.5-14.5)
[2022-10-12 09:43] LABS: #Eosinphils 0.1 10x3/uL (0.0-0.5); #Monocytes 0.4 10x3/uL (0.0-1.1); #Neutrophils 3.8 10x3/uL (1.5-8.4); %Basophils 0.4 % (0.0-2.0); %Lymphocytes 13.7 % (18.0-47.0); %Neutrophils 75.3 % (40.0-75.0); Mean Platelet Volume 10.3 fl (7.4-10.4); Platelet Count 93 10x3/uL (150-450)
[2022-10-12 10:01] LABS: ALT (SGPT) 15 U/L (8-55); AST (SGOT) 28 U/L (5-34); Albumin 2.7 g/dL (3.4-4.8); Alkaline Phosphatase 83 U/L (40-110); Anion Gap 15 mmol/L (10-20); BUN (Urea Nitrogen) 60 mg/dL (8.4-25.7); Bilirubin, Total 0.5 mg/dL (0.2-1.2); Calc. Creatinine Clearance 0 mL/min (70-130); Calcium 7.4 mg/dL (7.8-10.44); Carbon Dioxide 28 mmol/L (23-31); Chloride 96 mmol/L (98-107); Estimated GFR 18; Globulin 3.1 g/dL (2.4-3.5); Glucose 88 mg/dL (80-115); Protein, Total 5.8 g/dL (5.8-8.1); Sodium 135 mmol/L (136-145)
[2022-10-12 10:03] LABS: PTT 39.3 sec (22.0-33.0); Prothrombin Time 10.5 sec (9.5-12.1)
[2022-10-12 10:07] LABS: Macrocytosis SLIGHT = 6-15 cells (100X) (0-5/hpf); Microcytosis SLIGHT = 6-15 cells (100X) (0-5/hpf)
[2022-10-12 10:09] LABS: Hypochromia SLIGHT = 6-15 cells (100X) (0-5/hpf)
[2022-10-12 10:10] LABS: Platelet Morphology Comment Appears Decreased
[2022-10-12 10:11] LABS: Reflex for Review?? YES
[2022-10-12 10:19] LABS: CKMB 11.8 ng/mL (0-6.6)
[2022-10-12] MEDS ORDERED: Morphine 4 MG/ML VIAL ONE ×2 (11:10→13:44)
[2022-10-12] MEDS ORDERED: Acetaminophen 650 MG Suppository PR PRN (15:45)
[2022-10-12] MEDS ORDERED: Ondansetron PF 4 MG/2 ML Vial IVP PRN (15:45)
[2022-10-12] MEDS ORDERED: Ondansetron ODT 4 MG TAB PO PRN (15:45)
[2022-10-12] MEDS ORDERED: Acetaminophen 325 MG TAB PO PRN (15:45)
[2022-10-12 16:24] VITALS: BMI 17.9
[2022-10-12] MEDS ORDERED: EPOETIN ALFA-EPBX (ESRD) 10,000 UNIT/ML VIAL SC SCH (17:30)
[2022-10-12] MEDS ORDERED: Heparin 10,000 UNITS/ 10 ML VIAL FS PRN (18:23)
[2022-10-12] MEDS ORDERED: Lorazepam 0.5 MG TAB PER TUBE SCH (20:00)
[2022-10-12 22:24] LABS: Hemoglobin 7.3 g/dL (13.5-17.5)
[2022-10-12] MEDS ORDERED: Amitriptyline HCl 10 MG TAB PER TUBE SCH (22:45)
[2022-10-12] MEDS: oxyCODONE 5 MG TAB PER TUBE PRN (23:06)
[2022-10-12] MEDS: Sodium Chloride 0.9% 1,000 ML IV SCH (23:06)
[2022-10-13 04:48] LABS: #Eosinphils 0.2 10x3/uL (0.0-0.5); #Monocytes 0.4 10x3/uL (0.0-1.1); #Neutrophils 3.1 10x3/uL (1.5-8.4); %Basophils 0.9 % (0.0-2.0); %Eosinophils 3.4 % (0.0-6.0); %Lymphocytes 19.2 % (18.0-47.0); %Monocytes 9.5 % (0.0-10.0); %Neutrophils 65.9 % (40.0-75.0); Hemoglobin 6.7 g/dL (13.5-17.5); Mean Corpuscular Hemoglobin 31.2 pg (27.0-33.0); Mean Corpuscular Volume 94.4 fl (81.2-95.1); Mean Platelet Volume 10.2 fl (7.4-10.4); Platelet Count 88 10x3/uL (150-450); RBC Distribution Width 20.4 % (11.5-14.5); Red Blood Cell (RBC) Count 2.15 10x6/uL (4.32-5.72); White Blood Cell (WBC) Count 4.6 10x3/uL (3.5-10.5)
[2022-10-13 04:59] LABS: Anion Gap 13 mmol/L (10-20); BUN (Urea Nitrogen) 46 mg/dL (8.4-25.7); Calc. Creatinine Clearance 17 mL/min (70-130); Calcium 7.1 mg/dL (7.8-10.44); Carbon Dioxide 26 mmol/L (23-31); Chloride 100 mmol/L (98-107); Estimated GFR 22; Glucose 71 mg/dL (80-115); Sodium 135 mmol/L (136-145)
[2022-10-13] MEDS ORDERED: Levothyroxine 150 MCG TAB PER TUBE SCH (06:00)
[2022-10-13] MEDS: Sodium Chloride 0.9% 1,000 ML IV SCH ×2 (06:19→15:15)
[2022-10-13 08:16] LABS: Troponin I 0.103 ng/mL (< 0.028)
[2022-10-13] MEDS ORDERED: Lansoprazole 3 MG/ML ORAL SUSPENSION PER TUBE SCH (09:00)
[2022-10-13] MEDS: Lansoprazole 3 MG/ML ORAL SUSPENSION PER TUBE SCH (09:47)
[2022-10-13 10:50] LABS: Hemoglobin 6.7 g/dL (13.5-17.5)
[2022-10-13 15:33] LABS: Hemoglobin 6.7 g/dL (13.5-17.5)
[2022-10-13] MEDS ORDERED: GoLYTELY 4,000 ml Bottle PER TUBE SCH (16:00)
[2022-10-13] MEDS: Amitriptyline HCl 10 MG TAB PER TUBE SCH (20:20)
[2022-10-13] MEDS ORDERED: Sodium Chloride 0.9% 500 ML IV SCH (23:45)
[2022-10-14 00:18] LABS: Hemoglobin 7.6 g/dL (13.5-17.5)
[2022-10-14] MEDS: Lorazepam 0.5 MG TAB PER TUBE PRN (01:19)
[2022-10-14 02:38] LABS: #Basophils 0.1 10x3/uL (0.0-0.2); #Eosinphils 0.2 10x3/uL (0.0-0.5); #Monocytes 0.5 10x3/uL (0.0-1.1); #Neutrophils 3.8 10x3/uL (1.5-8.4); %Basophils 1.1 % (0.0-2.0); %Eosinophils 3.1 % (0.0-6.0); %Lymphocytes 15.6 % (18.0-47.0); %Neutrophils 70.3 % (40.0-75.0); Mean Corpuscular HGB CONC 33.5 g/dL (32.0-36.0); Mean Corpuscular Hemoglobin 31.5 pg (27.0-33.0); Mean Corpuscular Volume 94.2 fl (81.2-95.1); Mean Platelet Volume 9.7 fl (7.4-10.4); Platelet Count 94 10x3/uL (150-450); RBC Distribution Width 18.4 % (11.5-14.5); Red Blood Cell (RBC) Count 2.57 10x6/uL (4.32-5.72); White Blood Cell (WBC) Count 5.5 10x3/uL (3.5-10.5)
[2022-10-14 02:50] LABS: Anion Gap 18 mmol/L (10-20); BUN (Urea Nitrogen) 56 mg/dL (8.4-25.7); Calc. Creatinine Clearance 13 mL/min (70-130); Calcium 7.1 mg/dL (7.8-10.44); Carbon Dioxide 24 mmol/L (23-31); Chloride 105 mmol/L (98-107); Estimated GFR 17; Glucose 69 mg/dL (80-115); Potassium 5.5 mmol/L (3.5-5.1); Sodium 141 mmol/L (136-145)
[2022-10-14 04:43] LABS: Hemoglobin 7.9 g/dL (13.5-17.5); Platelet Count 93 10x3/uL (150-450)
[2022-10-14 04:46] LABS: SARS-CoV-2 NAA Rapid Test Not Detected (NotDetected)
[2022-10-14] MEDS: Levothyroxine 150 MCG TAB PER TUBE SCH (05:31)
[2022-10-14] MEDS ORDERED: Dextrose 50% Abboject 50 ML SYRINGE SLOW IVP PRN (07:46)
[2022-10-14] MEDS: Pantoprazole 40 MG VIAL IVP SCH (08:23)
[2022-10-14] MEDS ORDERED: PROPOFOL 20 ML ONE ×2 (08:39→19:37)
[2022-10-14] MEDS ORDERED: PHENYLEPHRINE-NS 100 MCG/ML 10 ML SYRINGE ONE (08:40)
[2022-10-14] MEDS ORDERED: Lidocaine 1% PF 5 ML VIAL ONE ×2 (08:42→19:37)
[2022-10-14 08:55] LABS: Actual Bicarbonate (HCO3a) 23.5 mEq/L (22-28); Base Excess (BEa) -1.4 mEq/L (-2.0 to +3.0); Carboxyhemoglobin (COHb) 0.7 gm% (0.0-3.0); Hemoglobin (Hb) 7.3 g/dL (14.0-18.0); O2 Tension (PaO2), arterial 77.4 mmHg (> 80.0); Potassium - ABG Lab 5.6 mmol/L (3.70-5.30); Puncture Site RRA; pH, Arterial 7.39 (7.35-7.45)
[2022-10-14] MEDS: Lansoprazole 3 MG/ML ORAL SUSPENSION PER TUBE SCH (09:23)
[2022-10-14 10:31] LABS: Hemoglobin 8.1 g/dL (13.5-17.5)
[2022-10-14] MEDS ORDERED: Morphine 2 MG/ML VIAL SLOW IVP SCH (12:30)
[2022-10-14] MEDS: Sodium Chloride 0.9% 1,000 ML IV SCH ×2 (12:33→21:31)
[2022-10-14] MEDS ORDERED: Morphine 2 MG/ML VIAL SLOW IVP PRN (12:56)
[2022-10-14 16:27] LABS: Hemoglobin 7.8 g/dL (13.5-17.5)
[2022-10-14] MEDS: Morphine 2 MG/ML VIAL SLOW IVP PRN (18:50)
[2022-10-14] MEDS ORDERED: Ketamine 50 MG/ML (10ML VIAL) ONE (19:20)
[2022-10-14] MEDS ORDERED: Midazolam HCl 2 mg/2 ml Vial ONE (19:21)
[2022-10-14] MEDS ORDERED: ePHEDrine Sulfate 50 MG/10 ML VIAL ONE (19:37)
[2022-10-14] MEDS: Amitriptyline HCl 10 MG TAB PER TUBE SCH (21:31)
[2022-10-15] MEDS: Morphine 2 MG/ML VIAL SLOW IVP PRN ×2 (00:37→19:27)
[2022-10-15] MEDS: Lorazepam 0.5 MG TAB PER TUBE PRN ×2 (03:25→19:27)
[2022-10-15 03:43] LABS: #Basophils 0.1 10x3/uL (0.0-0.2); #Eosinphils 0.2 10x3/uL (0.0-0.5); #Monocytes 0.4 10x3/uL (0.0-1.1); #Neutrophils 3.3 10x3/uL (1.5-8.4); %Basophils 1.2 % (0.0-2.0); %Eosinophils 3.7 % (0.0-6.0); %Lymphocytes 18.5 % (18.0-47.0); %Monocytes 8.6 % (0.0-10.0); %Neutrophils 66.6 % (40.0-75.0); Hemoglobin 8.4 g/dL (13.5-17.5); Mean Corpuscular HGB CONC 33.1 g/dL (32.0-36.0); Mean Corpuscular Hemoglobin 32.1 pg (27.0-33.0); Mean Corpuscular Volume 96.9 fl (81.2-95.1); Mean Platelet Volume 9.7 fl (7.4-10.4); Platelet Count 119 10x3/uL (150-450); RBC Distribution Width 19.3 % (11.5-14.5); Red Blood Cell (RBC) Count 2.62 10x6/uL (4.32-5.72); White Blood Cell (WBC) Count 4.9 10x3/uL (3.5-10.5)
[2022-10-15 03:54] LABS: ALT (SGPT) 16 U/L (8-55); AST (SGOT) 34 U/L (5-34); Albumin 2.6 g/dL (3.4-4.8); Alkaline Phosphatase 91 U/L (40-110); Anion Gap 17 mmol/L (10-20); BUN (Urea Nitrogen) 37 mg/dL (8.4-25.7); Bilirubin, Total 0.7 mg/dL (0.2-1.2); Calc. Creatinine Clearance 17 mL/min (70-130); Calcium 7.4 mg/dL (7.8-10.44); Carbon Dioxide 25 mmol/L (23-31); Chloride 104 mmol/L (98-107); Estimated GFR 22; Globulin 3.3 g/dL (2.4-3.5); Glucose 79 mg/dL (80-115); Potassium 4.4 mmol/L (3.5-5.1); Protein, Total 5.9 g/dL (5.8-8.1); Sodium 142 mmol/L (136-145)
[2022-10-15] MEDS: Levothyroxine 150 MCG TAB PER TUBE SCH (06:08)
[2022-10-15] MEDS: oxyCODONE 5 MG TAB PER TUBE PRN ×2 (09:23→14:32)
[2022-10-15] MEDS: Pantoprazole 40 MG VIAL IVP SCH (09:23)
[2022-10-15] MEDS: Lansoprazole 3 MG/ML ORAL SUSPENSION PER TUBE SCH (09:24)
[2022-10-15] MEDS: EPOETIN ALFA-EPBX (ESRD) 10,000 UNIT/ML VIAL SC SCH (09:24)
[2022-10-15] MEDS: Sodium Chloride 0.9% 1,000 ML IV SCH (10:58)
[2022-10-15 12:37] LABS: Hemoglobin 7.6 g/dL (13.5-17.5)
[2022-10-15] MEDS: Amitriptyline HCl 10 MG TAB PER TUBE SCH (19:27)
[2022-10-16] MEDS: Sodium Chloride 0.9% 1,000 ML IV SCH (00:23)
[2022-10-16 03:53] LABS: #Basophils 0.1 10x3/uL (0.0-0.2); #Eosinphils 0.2 10x3/uL (0.0-0.5); #Monocytes 0.4 10x3/uL (0.0-1.1); %Basophils 1.1 % (0.0-2.0); %Eosinophils 3.3 % (0.0-6.0); %Lymphocytes 18.2 % (18.0-47.0); %Neutrophils 66.6 % (40.0-75.0); Mean Corpuscular HGB CONC 33.2 g/dL (32.0-36.0); Mean Corpuscular Volume 96.3 fl (81.2-95.1); Mean Platelet Volume 9.1 fl (7.4-10.4); Platelet Count 133 10x3/uL (150-450); RBC Distribution Width 18.9 % (11.5-14.5); Red Blood Cell (RBC) Count 2.19 10x6/uL (4.32-5.72); White Blood Cell (WBC) Count 4.6 10x3/uL (3.5-10.5)
[2022-10-16 04:04] LABS: Phosphorus 2.3 mg/dL (2.3-4.7)
[2022-10-16 04:06] LABS: ALT (SGPT) 13 U/L (8-55); AST (SGOT) 25 U/L (5-34); Albumin 2.3 g/dL (3.4-4.8); Alkaline Phosphatase 80 U/L (40-110); Anion Gap 12 mmol/L (10-20); BUN (Urea Nitrogen) 24 mg/dL (8.4-25.7); Bilirubin, Total 0.5 mg/dL (0.2-1.2); Calc. Creatinine Clearance 22 mL/min (70-130); Calcium 7.3 mg/dL (7.8-10.44); Carbon Dioxide 27 mmol/L (23-31); Chloride 102 mmol/L (98-107); Estimated GFR 30; Globulin 2.9 g/dL (2.4-3.5); Glucose 97 mg/dL (80-115); Magnesium 1.8 mg/dL (1.6-2.6); Potassium 3.4 mmol/L (3.5-5.1); Protein, Total 5.2 g/dL (5.8-8.1); Sodium 138 mmol/L (136-145)
[2022-10-16] MEDS: Lorazepam 0.5 MG TAB PER TUBE PRN ×3 (05:32→18:51)
[2022-10-16] MEDS: Levothyroxine 150 MCG TAB PER TUBE SCH (06:06)
[2022-10-16] MEDS: Lansoprazole 3 MG/ML ORAL SUSPENSION PER TUBE SCH (09:25)
[2022-10-16] MEDS: Pantoprazole 40 MG VIAL IVP SCH (09:25)
[2022-10-16] MEDS: oxyCODONE 5 MG TAB PER TUBE PRN ×3 (09:25→21:27)
[2022-10-16] MEDS ORDERED: Docusate Sodium 100 MG/10 ML UDCUP PO SCH (17:00)
[2022-10-16 17:54] LABS: Hemoglobin 9.3 g/dL (13.5-17.5)
[2022-10-16] MEDS: Amitriptyline HCl 10 MG TAB PER TUBE SCH (21:27)
[2022-10-17] MEDS: Morphine 2 MG/ML VIAL SLOW IVP PRN ×2 (01:10→17:54)
[2022-10-17 04:55] LABS: Anion Gap 15 mmol/L (10-20); BUN (Urea Nitrogen) 35 mg/dL (8.4-25.7); Calc. Creatinine Clearance 16 mL/min (70-130); Calcium 7.5 mg/dL (7.8-10.44); Carbon Dioxide 26 mmol/L (23-31); Chloride 100 mmol/L (98-107); Estimated GFR 21; Glucose 81 mg/dL (80-115); Potassium 3.6 mmol/L (3.5-5.1); Sodium 137 mmol/L (136-145)
[2022-10-17] MEDS: Sodium Chloride 0.9% 1,000 ML IV SCH ×2 (04:55→17:15)
[2022-10-17 05:08] LABS: #Basophils 0.1 10x3/uL (0.0-0.2); #Eosinphils 0.2 10x3/uL (0.0-0.5); #Monocytes 0.5 10x3/uL (0.0-1.1); #Neutrophils 4.7 10x3/uL (1.5-8.4); %Basophils 0.9 % (0.0-2.0); %Eosinophils 3.2 % (0.0-6.0); %Lymphocytes 15.2 % (18.0-47.0); %Neutrophils 70.3 % (40.0-75.0); Mean Corpuscular Hemoglobin 31.8 pg (27.0-33.0); Mean Corpuscular Volume 93.6 fl (81.2-95.1); Mean Platelet Volume 9.3 fl (7.4-10.4); Platelet Count 120 10x3/uL (150-450); RBC Distribution Width 20.6 % (11.5-14.5); Red Blood Cell (RBC) Count 2.83 10x6/uL (4.32-5.72); White Blood Cell (WBC) Count 6.7 10x3/uL (3.5-10.5)
[2022-10-17 05:09] LABS: Anisocytosis SLIGHT = 6-15 cells (100X) (0-5/hpf); Platelet Morphology Comment Appears Decreased
[2022-10-17 05:15] LABS: Hemoglobin 9.1 g/dL (13.5-17.5)
[2022-10-17] MEDS: Levothyroxine 150 MCG TAB PER TUBE SCH (05:30)
[2022-10-17 08:09] LABS: Hemoglobin 8.5 g/dL (13.5-17.5)
[2022-10-17] MEDS: Lansoprazole 3 MG/ML ORAL SUSPENSION PER TUBE SCH (08:54)
[2022-10-17] MEDS: Pantoprazole 40 MG VIAL IVP SCH (08:54)
[2022-10-17 10:07] LABS: HBSAg Index 0.14 S/CO (0-0.99); Hep B Surf Ag Non-Reactive S/CO (NonReactive)
[2022-10-17] MEDS ORDERED: clonazePAM 0.5 MG TAB PO PRN (15:18)
[2022-10-17] MEDS: Lorazepam 0.5 MG TAB PO PRN (17:54)
[2022-10-17 18:24] LABS: HBSAB Concentration Less than 8.00 mIU/mL; Hep B Surf AB Non-Reactive (NonReactive)
[2022-10-17] MEDS: Amitriptyline HCl 10 MG TAB PER TUBE SCH (21:53)
[2022-10-18] MEDS: Lorazepam 0.5 MG TAB PO PRN ×3 (02:25→17:20)
[2022-10-18] MEDS: Levothyroxine 150 MCG TAB PER TUBE SCH (05:13)
[2022-10-18 05:17] LABS: #Basophils 0.1 10x3/uL (0.0-0.2); #Eosinphils 0.2 10x3/uL (0.0-0.5); #Monocytes 0.5 10x3/uL (0.0-1.1); #Neutrophils 3.7 10x3/uL (1.5-8.4); %Basophils 0.9 % (0.0-2.0); %Lymphocytes 16.2 % (18.0-47.0); %Monocytes 9.4 % (0.0-10.0); %Neutrophils 66.2 % (40.0-75.0); Hemoglobin 8.6 g/dL (13.5-17.5); Mean Corpuscular Hemoglobin 31.4 pg (27.0-33.0); Mean Corpuscular Volume 95.3 fl (81.2-95.1); Mean Platelet Volume 9.6 fl (7.4-10.4); Platelet Count 108 10x3/uL (150-450); RBC Distribution Width 20.5 % (11.5-14.5); Red Blood Cell (RBC) Count 2.74 10x6/uL (4.32-5.72); White Blood Cell (WBC) Count 5.6 10x3/uL (3.5-10.5)
[2022-10-18 05:18] LABS: Anion Gap 15 mmol/L (10-20); BUN (Urea Nitrogen) 38 mg/dL (8.4-25.7); Calc. Creatinine Clearance 21 mL/min (70-130); Calcium 7.6 mg/dL (7.8-10.44); Carbon Dioxide 26 mmol/L (23-31); Chloride 99 mmol/L (98-107); Estimated GFR 28; Glucose 89 mg/dL (80-115); Potassium 3.5 mmol/L (3.5-5.1); Sodium 136 mmol/L (136-145)
[2022-10-18] MEDS: oxyCODONE 5 MG TAB PER TUBE PRN ×2 (05:28→17:20)
[2022-10-18] MEDS: Pantoprazole 40 MG VIAL IVP SCH (08:29)
[2022-10-18] MEDS: Lansoprazole 3 MG/ML ORAL SUSPENSION PER TUBE SCH (08:30)
[2022-10-18] MEDS: Ipratropium/Albuterol 3 ML NEB NEB PRN ×2 (17:50→22:00)
[2022-10-18] MEDS: Amitriptyline HCl 10 MG TAB PER TUBE SCH (21:01)
[2022-10-18] MEDS: Morphine 2 MG/ML VIAL SLOW IVP PRN (21:01)
[2022-10-19] MEDS: oxyCODONE 5 MG TAB PER TUBE PRN ×3 (00:39→14:16)
[2022-10-19] MEDS: Lorazepam 0.5 MG TAB PO PRN ×3 (03:43→21:47)
[2022-10-19] MEDS: Morphine 2 MG/ML VIAL SLOW IVP PRN ×3 (05:08→21:45)
[2022-10-19] MEDS: Levothyroxine 150 MCG TAB PER TUBE SCH (05:14)
[2022-10-19 06:23] LABS: #Basophils 0.1 10x3/uL (0.0-0.2); #Eosinphils 0.2 10x3/uL (0.0-0.5); #Monocytes 0.4 10x3/uL (0.0-1.1); %Basophils 1.1 % (0.0-2.0); %Eosinophils 2.9 % (0.0-6.0); %Lymphocytes 13.2 % (18.0-47.0); %Monocytes 7.2 % (0.0-10.0); Hemoglobin 8.7 g/dL (13.5-17.5); Mean Corpuscular HGB CONC 33.7 g/dL (32.0-36.0); Mean Corpuscular Hemoglobin 31.9 pg (27.0-33.0); Mean Corpuscular Volume 94.5 fl (81.2-95.1); Mean Platelet Volume 10.7 fl (7.4-10.4); Platelet Count 122 10x3/uL (150-450); RBC Distribution Width 20.4 % (11.5-14.5); Red Blood Cell (RBC) Count 2.73 10x6/uL (4.32-5.72); White Blood Cell (WBC) Count 5.5 10x3/uL (3.5-10.5)
[2022-10-19 06:26] LABS: Anion Gap 16 mmol/L (10-20); BUN (Urea Nitrogen) 62 mg/dL (8.4-25.7); Calc. Creatinine Clearance 15 mL/min (70-130); Calcium 7.6 mg/dL (7.8-10.44); Carbon Dioxide 24 mmol/L (23-31); Chloride 98 mmol/L (98-107); Estimated GFR 20; Glucose 96 mg/dL (80-115); Potassium 3.9 mmol/L (3.5-5.1); Sodium 134 mmol/L (136-145)
[2022-10-19] MEDS: Ipratropium/Albuterol 3 ML NEB NEB PRN ×2 (07:45→19:28)
[2022-10-19] MEDS: busPIRone HCl 5 MG TAB PER TUBE SCH (09:11)
[2022-10-19] MEDS: Pantoprazole 40 MG VIAL IVP SCH (09:12)
[2022-10-19] MEDS: Amlodipine 10 MG TAB PER TUBE SCH (09:52)
[2022-10-19] MEDS: Lansoprazole 3 MG/ML ORAL SUSPENSION PER TUBE SCH (09:52)
[2022-10-19] MEDS: Metoprolol Tartrate 25 MG TAB PER TUBE SCH ×2 (09:52→21:45)
[2022-10-19] MEDS: Pancrelipase DR 12,000 1 CAP PER TUBE SCH ×2 (14:17→17:49)
[2022-10-19] MEDS: Calcium Acetate 667 MG CAP PER TUBE SCH ×2 (14:17→17:49)
[2022-10-19] MEDS: Amitriptyline HCl 10 MG TAB PER TUBE SCH (21:45)
[2022-10-20] MEDS: Morphine 2 MG/ML VIAL SLOW IVP PRN ×4 (01:56→21:52)
[2022-10-20] MEDS: Lorazepam 0.5 MG TAB PO PRN ×3 (02:52→20:36)
[2022-10-20] MEDS: Ipratropium/Albuterol 3 ML NEB NEB PRN ×4 (03:16→19:42)
[2022-10-20] MEDS: Levothyroxine 150 MCG TAB PER TUBE SCH (06:35)
[2022-10-20 07:44] LABS: Anion Gap 16 mmol/L (10-20); BUN (Urea Nitrogen) 37 mg/dL (8.4-25.7); Calc. Creatinine Clearance 22 mL/min (70-130); Calcium 8.1 mg/dL (7.8-10.44); Carbon Dioxide 25 mmol/L (23-31); Chloride 103 mmol/L (98-107); Estimated GFR 30; Glucose 100 mg/dL (80-115); Potassium 3.9 mmol/L (3.5-5.1); Sodium 140 mmol/L (136-145)
[2022-10-20 07:54] LABS: #Monocytes 0.4 10x3/uL (0.0-1.1); #Neutrophils 4.2 10x3/uL (1.5-8.4); %Basophils 0.4 % (0.0-2.0); %Eosinophils 0.6 % (0.0-6.0); %Lymphocytes 9.5 % (18.0-47.0); %Neutrophils 80.6 % (40.0-75.0); Hemoglobin 7.9 g/dL (13.5-17.5); Mean Corpuscular HGB CONC 32.5 g/dL (32.0-36.0); Mean Corpuscular Hemoglobin 31.7 pg (27.0-33.0); Mean Corpuscular Volume 97.6 fl (81.2-95.1); Platelet Count 132 10x3/uL (150-450); RBC Distribution Width 20.5 % (11.5-14.5); Red Blood Cell (RBC) Count 2.49 10x6/uL (4.32-5.72); White Blood Cell (WBC) Count 5.3 10x3/uL (3.5-10.5)
[2022-10-20] MEDS ORDERED: Lorazepam 0.5 MG TAB PO SCH (09:00)
[2022-10-20] MEDS ORDERED: Pantoprazole 40 MG VIAL ONE (09:08)
[2022-10-20] MEDS: Pancrelipase DR 12,000 1 CAP PER TUBE SCH ×3 (09:21→16:10)
[2022-10-20] MEDS: Amlodipine 10 MG TAB PER TUBE SCH (09:21)
[2022-10-20] MEDS: Metoprolol Tartrate 25 MG TAB PER TUBE SCH ×2 (09:22→20:36)
[2022-10-20] MEDS: Calcium Acetate 667 MG CAP PER TUBE SCH ×3 (09:22→16:10)
[2022-10-20] MEDS: busPIRone HCl 5 MG TAB PER TUBE SCH (09:22)
[2022-10-20] MEDS: Pantoprazole 40 MG VIAL IVP SCH (09:23)
[2022-10-20] MEDS ORDERED: Morphine 2 MG/ML VIAL SLOW IVP SCH (12:15)
[2022-10-20] MEDS: Lansoprazole 3 MG/ML ORAL SUSPENSION PER TUBE SCH (12:50)
[2022-10-20 12:56] LABS: Hemoglobin 8.6 g/dL (13.5-17.5); Platelet Count 135 10x3/uL (150-450)
[2022-10-20 13:09] LABS: Troponin I 0.135 ng/mL (< 0.028)
[2022-10-21] MEDS: Amitriptyline HCl 10 MG TAB PER TUBE SCH ×2 (00:26→22:56)
[2022-10-21] MEDS: oxyCODONE 5 MG TAB PER TUBE PRN (00:27)
[2022-10-21] MEDS: Lorazepam 0.5 MG TAB PO PRN ×3 (02:50→16:01)
[2022-10-21 04:41] LABS: #Eosinphils 0.1 10x3/uL (0.0-0.5); #Monocytes 0.5 10x3/uL (0.0-1.1); #Neutrophils 4.7 10x3/uL (1.5-8.4); %Basophils 0.5 % (0.0-2.0); %Eosinophils 1.3 % (0.0-6.0); %Lymphocytes 11.9 % (18.0-47.0); %Monocytes 8.5 % (0.0-10.0); %Neutrophils 76.3 % (40.0-75.0); Mean Corpuscular Hemoglobin 31.7 pg (27.0-33.0); Mean Corpuscular Volume 99.2 fl (81.2-95.1); Mean Platelet Volume 10.2 fl (7.4-10.4); Platelet Count 126 10x3/uL (150-450); RBC Distribution Width 20.6 % (11.5-14.5); Red Blood Cell (RBC) Count 2.52 10x6/uL (4.32-5.72); White Blood Cell (WBC) Count 6.2 10x3/uL (3.5-10.5)
[2022-10-21 04:58] LABS: Anion Gap 18 mmol/L (10-20); BUN (Urea Nitrogen) 48 mg/dL (8.4-25.7); Calc. Creatinine Clearance 17 mL/min (70-130); Calcium 8.3 mg/dL (7.8-10.44); Carbon Dioxide 24 mmol/L (23-31); Chloride 101 mmol/L (98-107); Estimated GFR 22; Glucose 91 mg/dL (80-115); Potassium 4.3 mmol/L (3.5-5.1); Sodium 139 mmol/L (136-145)
[2022-10-21] MEDS: Levothyroxine 150 MCG TAB PER TUBE SCH (05:48)
[2022-10-21] MEDS: Amlodipine 10 MG TAB PER TUBE SCH (10:08)
[2022-10-21] MEDS: Metoprolol Tartrate 25 MG TAB PER TUBE SCH ×2 (10:08→22:56)
[2022-10-21] MEDS: busPIRone HCl 5 MG TAB PER TUBE SCH (10:09)
[2022-10-21] MEDS: Pancrelipase DR 12,000 1 CAP PER TUBE SCH ×3 (10:10→17:42)
[2022-10-21] MEDS: Lansoprazole 3 MG/ML ORAL SUSPENSION PER TUBE SCH (10:10)
[2022-10-21] MEDS: Calcium Acetate 667 MG CAP PER TUBE SCH ×3 (10:11→17:42)
[2022-10-21] MEDS: Pantoprazole 40 MG VIAL IVP SCH (10:12)
[2022-10-21] MEDS: Morphine 2 MG/ML VIAL SLOW IVP PRN ×2 (13:27→23:44)
[2022-10-22] MEDS: Levothyroxine 150 MCG TAB PER TUBE SCH (06:21)
[2022-10-22] MEDS ORDERED: Dextrose 50% Abboject 50 ML SYRINGE SLOW IVP SCH ×2 (06:45→15:00)
[2022-10-22] MEDS: Amlodipine 10 MG TAB PER TUBE SCH (08:39)
[2022-10-22] MEDS: Metoprolol Tartrate 25 MG TAB PER TUBE SCH ×2 (08:39→21:28)
[2022-10-22] MEDS: Calcium Acetate 667 MG CAP PER TUBE SCH ×3 (08:39→16:52)
[2022-10-22] MEDS: Pancrelipase DR 12,000 1 CAP PER TUBE SCH ×3 (08:39→16:52)
[2022-10-22] MEDS: Pantoprazole 40 MG VIAL IVP SCH (08:46)
[2022-10-22] MEDS: oxyCODONE 5 MG TAB PER TUBE PRN ×2 (08:46→16:52)
[2022-10-22] MEDS: busPIRone HCl 5 MG TAB PER TUBE SCH (08:47)
[2022-10-22] MEDS: Lansoprazole 3 MG/ML ORAL SUSPENSION PER TUBE SCH (08:48)
[2022-10-22] MEDS: EPOETIN ALFA-EPBX (ESRD) 10,000 UNIT/ML VIAL SC SCH (09:03)
[2022-10-22] MEDS: Dextrose 5 % And 0.9 % NaCl 1,000 ML IV SCH (16:52)
[2022-10-22] MEDS: Amitriptyline HCl 10 MG TAB PER TUBE SCH (21:27)
[2022-10-22] MEDS: Lorazepam 0.5 MG TAB PO PRN (21:35)
[2022-10-23 04:46] LABS: Anion Gap 15 mmol/L (10-20); BUN (Urea Nitrogen) 21 mg/dL (8.4-25.7); Calc. Creatinine Clearance 24 mL/min (70-130); Calcium 8.1 mg/dL (7.8-10.44); Carbon Dioxide 25 mmol/L (23-31); Chloride 104 mmol/L (98-107); Estimated GFR 34; Glucose 93 mg/dL (80-115); Potassium 3.3 mmol/L (3.5-5.1); Sodium 141 mmol/L (136-145)
[2022-10-23 04:48] LABS: #Basophils 0.1 10x3/uL (0.0-0.2); #Eosinphils 0.1 10x3/uL (0.0-0.5); #Monocytes 0.6 10x3/uL (0.0-1.1); #Neutrophils 4.4 10x3/uL (1.5-8.4); %Basophils 0.8 % (0.0-2.0); %Lymphocytes 12.6 % (18.0-47.0); %Monocytes 10.1 % (0.0-10.0); %Neutrophils 73.3 % (40.0-75.0); Hemoglobin 8.1 g/dL (13.5-17.5); Mean Corpuscular HGB CONC 31.9 g/dL (32.0-36.0); Mean Corpuscular Hemoglobin 32.1 pg (27.0-33.0); Mean Corpuscular Volume 100.8 fl (81.2-95.1); Platelet Count 152 10x3/uL (150-450); Red Blood Cell (RBC) Count 2.52 10x6/uL (4.32-5.72)
[2022-10-23] MEDS: oxyCODONE 5 MG TAB PER TUBE PRN ×2 (05:07→17:56)
[2022-10-23] MEDS: Levothyroxine 150 MCG TAB PER TUBE SCH (05:07)
[2022-10-23] MEDS: Ipratropium/Albuterol 3 ML NEB NEB PRN ×2 (07:40→19:44)
[2022-10-23] MEDS: Metoprolol Tartrate 25 MG TAB PER TUBE SCH ×2 (08:55→21:55)
[2022-10-23] MEDS: Pantoprazole 40 MG VIAL IVP SCH (08:55)
[2022-10-23] MEDS: Lorazepam 0.5 MG TAB PO PRN ×2 (08:55→15:57)
[2022-10-23] MEDS: busPIRone HCl 5 MG TAB PER TUBE SCH (08:55)
[2022-10-23] MEDS: Calcium Acetate 667 MG CAP PER TUBE SCH ×3 (08:55→17:53)
[2022-10-23] MEDS: Pancrelipase DR 12,000 1 CAP PER TUBE SCH ×3 (08:56→17:53)
[2022-10-23] MEDS: Amlodipine 10 MG TAB PER TUBE SCH (08:56)
[2022-10-23] MEDS: Morphine 2 MG/ML VIAL SLOW IVP PRN ×2 (09:19→22:26)
[2022-10-23] MEDS: Lansoprazole 3 MG/ML ORAL SUSPENSION PER TUBE SCH (12:31)
[2022-10-23] MEDS: Dextrose 5 % And 0.9 % NaCl 1,000 ML IV SCH (12:52)
[2022-10-23] MEDS: Amitriptyline HCl 10 MG TAB PER TUBE SCH (21:55)
[2022-10-24] MEDS: Lorazepam 0.5 MG TAB PO PRN ×3 (02:07→23:18)
[2022-10-24 05:19] LABS: #Basophils 0.1 10x3/uL (0.0-0.2); #Eosinphils 0.1 10x3/uL (0.0-0.5); #Monocytes 0.9 10x3/uL (0.0-1.1); #Neutrophils 5.6 10x3/uL (1.5-8.4); %Basophils 0.8 % (0.0-2.0); %Eosinophils 1.6 % (0.0-6.0); %Lymphocytes 12.5 % (18.0-47.0); %Monocytes 11.6 % (0.0-10.0); %Neutrophils 70.6 % (40.0-75.0); Hemoglobin 7.3 g/dL (13.5-17.5); Mean Corpuscular HGB CONC 31.5 g/dL (32.0-36.0); Mean Corpuscular Hemoglobin 31.5 pg (27.0-33.0); Mean Platelet Volume 10.2 fl (7.4-10.4); Platelet Count 167 10x3/uL (150-450); RBC Distribution Width 20.7 % (11.5-14.5); Red Blood Cell (RBC) Count 2.32 10x6/uL (4.32-5.72); White Blood Cell (WBC) Count 7.9 10x3/uL (3.5-10.5)
[2022-10-24 05:36] LABS: Anion Gap 13 mmol/L (10-20); BUN (Urea Nitrogen) 35 mg/dL (8.4-25.7); Calc. Creatinine Clearance 17 mL/min (70-130); Calcium 8.2 mg/dL (7.8-10.44); Carbon Dioxide 25 mmol/L (23-31); Chloride 103 mmol/L (98-107); Estimated GFR 23; Glucose 102 mg/dL (80-115); Potassium 3.4 mmol/L (3.5-5.1); Sodium 138 mmol/L (136-145)
[2022-10-24] MEDS: Levothyroxine 150 MCG TAB PER TUBE SCH (05:54)
[2022-10-24] MEDS: Pancrelipase DR 12,000 1 CAP PER TUBE SCH ×2 (12:48→17:44)
[2022-10-24] MEDS: Calcium Acetate 667 MG CAP PER TUBE SCH ×3 (12:48→17:44)
[2022-10-24] MEDS: busPIRone HCl 5 MG TAB PER TUBE SCH (12:49)
[2022-10-24] MEDS: Amlodipine 10 MG TAB PER TUBE SCH (12:49)
[2022-10-24] MEDS: Metoprolol Tartrate 25 MG TAB PER TUBE SCH ×2 (12:50→21:07)
[2022-10-24] MEDS: oxyCODONE 5 MG TAB PER TUBE PRN ×2 (13:19→21:08)
[2022-10-24] MEDS: Dextrose 5 % And 0.9 % NaCl 1,000 ML IV SCH (13:33)
[2022-10-24] MEDS: Lansoprazole 3 MG/ML ORAL SUSPENSION PER TUBE SCH (14:45)
[2022-10-24] MEDS: Ipratropium/Albuterol 3 ML NEB NEB PRN (20:27)
[2022-10-24] MEDS: Amitriptyline HCl 10 MG TAB PER TUBE SCH (21:07)
[2022-10-24] MEDS: Morphine 2 MG/ML VIAL SLOW IVP PRN (21:10)
[2022-10-25] MEDS ORDERED: Dextrose 5 % And 0.9 % NaCl 1,000 ML ONE (04:32)
[2022-10-25] MEDS: Levothyroxine 150 MCG TAB PER TUBE SCH (05:21)
[2022-10-25] MEDS: Dextrose 5 % And 0.9 % NaCl 1,000 ML IV SCH (05:22)
[2022-10-25] MEDS: Lorazepam 0.5 MG TAB PO PRN ×2 (06:45→12:40)
[2022-10-25 09:08] LABS: #Basophils 0.1 10x3/uL (0.0-0.2); #Eosinphils 0.2 10x3/uL (0.0-0.5); #Monocytes 0.8 10x3/uL (0.0-1.1); %Basophils 1.2 % (0.0-2.0); %Eosinophils 2.2 % (0.0-6.0); %Lymphocytes 11.5 % (18.0-47.0); %Neutrophils 71.8 % (40.0-75.0); Hemoglobin 9.6 g/dL (13.5-17.5); Mean Corpuscular HGB CONC 31.1 g/dL (32.0-36.0); Mean Corpuscular Hemoglobin 30.3 pg (27.0-33.0); Mean Corpuscular Volume 97.5 fl (81.2-95.1); Mean Platelet Volume 9.4 fl (7.4-10.4); Platelet Count 147 10x3/uL (150-450); RBC Distribution Width 21.2 % (11.5-14.5); Red Blood Cell (RBC) Count 3.17 10x6/uL (4.32-5.72); White Blood Cell (WBC) Count 8.3 10x3/uL (3.5-10.5)
[2022-10-25] MEDS ORDERED: Bisacodyl 10 MG SUPP PR SCH (12:30)
[2022-10-25] MEDS: Amlodipine 10 MG TAB PER TUBE SCH (12:40)
[2022-10-25] MEDS: Metoprolol Tartrate 25 MG TAB PER TUBE SCH (12:41)
[2022-10-25] MEDS: busPIRone HCl 5 MG TAB PER TUBE SCH (12:41)
[2022-10-25] MEDS: Calcium Acetate 667 MG CAP PER TUBE SCH ×2 (12:41)
[2022-10-25] MEDS: Pancrelipase DR 12,000 1 CAP PER TUBE SCH ×2 (12:41→12:42)
[2022-10-25] MEDS: Lansoprazole 3 MG/ML ORAL SUSPENSION PER TUBE SCH ×4 (12:54→16:18)
[2022-10-25] MEDS ORDERED: Fleet Enema 133 ML BOT PR SCH (14:45)
[2022-10-25] MEDS: oxyCODONE 5 MG TAB PER TUBE PRN (16:15)
[2022-10-25 17:24] VITALS: BP 136/65; TEMP 96.7
== END 2022-10-25 16:45 | DRG 377 ==
LOC: CSHERS 08:19 → CSHTELE 15:03 → CSHIMCU 10-14 04:14 → OBSVTOIN 10-15 09:49 → CSHTELE 10-17 16:29
PROVIDERS: ADMIT Internal Medicine; ATTEND Internal Medicine
PROC: 30233N1 Transfusion of Nonautologous Red Blood Cells into Peripheral Vein, Percutaneous Approach (ICD-10-PCS; 2022-10-12)
PROC: 0DJD8ZZ Inspection of Lower Intestinal Tract, Via Natural or Artificial Opening Endoscopic (ICD-10-PCS; principal; 2022-10-14)
PROC: 5A1D70Z Performance of Urinary Filtration, Intermittent, Less than 6 Hours Per Day (ICD-10-PCS; 2022-10-23)
DX: K92.1 Melena (principal); N18.6 End stage renal disease; D62 Acute posthemorrhagic anemia; C34.90 Malignant neoplasm of unspecified part of unspecified bronchus or lung; Z68.1 Body mass index [BMI] 19.9 or less, adult; E44.0 Moderate protein-calorie malnutrition; I12.0 Hypertensive chronic kidney disease with stage 5 chronic kidney disease or end stage renal disease; R64 Cachexia; D63.1 Anemia in chronic kidney disease; J44.9 Chronic obstructive pulmonary disease, unspecified; K21.9 Gastro-esophageal reflux disease without esophagitis; E78.5 Hyperlipidemia, unspecified; I48.91 Unspecified atrial fibrillation; E89.0 Postprocedural hypothyroidism; F17.210 Nicotine dependence, cigarettes, uncomplicated; F41.9 Anxiety disorder, unspecified; C44.42 Squamous cell carcinoma of skin of scalp and neck; F32.A Depression, unspecified; E87.6 Hypokalemia; E87.5 Hyperkalemia; C67.9 Malignant neoplasm of bladder, unspecified; C14.0 Malignant neoplasm of pharynx, unspecified; R13.12 Dysphagia, oropharyngeal phase; Z79.899 Other long term (current) drug therapy; Z95.828 Presence of other vascular implants and grafts; Z93.1 Gastrostomy status; Z90.49 Acquired absence of other specified parts of digestive tract; Z98.890 Other specified postprocedural states; Z88.8 Allergy status to other drugs, medicaments and biological substances; Z99.81 Dependence on supplemental oxygen; Z80.1 Family history of malignant neoplasm of trachea, bronchus and lung; Z99.2 Dependence on renal dialysis; Z71.6 Tobacco abuse counseling; Z20.822 Contact with and (suspected) exposure to COVID-19; Z88.7 Allergy status to serum and vaccine; L89.159 Pressure ulcer of sacral region, unspecified stage
CPT/HCPCS: 36415; 36416; 36430; 36600; 71045; 74018; 74022; 80048; 80053; 82553; 82805; 83735; 84100; 84484; 85014; 85018; 85025; 85060; 85610; 85730; 86706; 86850; 86900; 86901; 87340; 87811; 90935; 93005; 93010; 94640; 94760; 96372; 96374; 96375; 96376; C9113; G0257; G0378; J1644; J2250; J2270; J2272; J2405; J2704; J7030; J7042; J7050; J7620; J7999; P9016; Q5105; U0002

== ENCOUNTER 2022-10-31 08:11 | Emergency (ER) | payer BC, MEDICARE | END 2022-10-31 10:22 | disposition home or self-care (01) | LOC: CSHERS 08:11 | DX: K56.41 Fecal impaction (principal) | CPT/HCPCS: 99283 ==